=== PATIENT | female | born 1980 | race Caucasian/White ===

== ENCOUNTER 2018-01-15 17:43 | Emergency (ER) | payer MEDICAID, SELFPAY ==
[2018-01-15 17:52] VITALS: BP 136/87; PULSE 99; RESP 18; TEMP 36.8; O2SAT 98
[2018-01-15 18:11] LABS: Bilirubin Small (Negative); Blood Trace-intact (Negative); Clarity Clear; Glucose Negative (Negative); Ketones 15 mg/dL (Negative); Leukocyte Esterase Negative (Negative); Nitrite Negative (Negative); Specific Gravity >= 1.030 (1.005-1.025); Urobilinogen 0.2 EU/dL (Up TO 0.2); pH 5.5 (5-8)
[2018-01-15 18:22] LABS: Bacteria Few HPF (Negative); C & S Indicated? No; Casts Negative LPF (Negative); Crystals Negative HPF (Negative); Epithelial Cells Many HPF (Negative); Mucus Negative (Negative); Other Cells Negative (Negative)
[2018-01-15] MEDS: Ondansetron 4 MG/2 ML VIAL IVP (18:44)
[2018-01-15] MEDS: Normal Saline 1,000 ML 1000 ML IV (18:44)
[2018-01-15 18:53] LABS: Abs Immature Grans 0.01 k/cumm (0.0-0.09); Absolute Basophil Count 0.01 k/cumm (0.0-0.2); Absolute Eosinophil Count 0.07 k/cumm (0.0-0.7); Absolute Lymphocyte Count 2.46 k/cumm (1.2-3.4); Absolute Monocyte Count 0.45 k/cumm (0.11-0.7); Absolute Neutrophil Count 2.63 k/cumm (1.2-6.7); Basophils % 0.2; Eosinophils % 1.2; HCT 41.6 % (36.0-46.0); HGB 14.1 g/dL (12.0-15.5); Immature Grans % 0.2; Lymphocytes % 43.7; Mean Corp. HGB Concentration 33.9 g/dL (32.0-36.0); Mean Corpuscular Volume 91.4 fL (80-95); Mean Platelet Volume 10.2 fL (8.0-11.0); Neutrophils % 46.7; Platelet Count 257 x1000/uL (130-400); RBC 4.55 m/cumm (4.00-5.20); RBC Distribution Width 12.4 % (11.7-14.6); White Blood Cell Count 5.63 k/cumm (4.4-10.8)
[2018-01-15 19:01] LABS: Prothrombin Time 9.7 sec (9.3-10.8)
[2018-01-15 19:10] LABS: ALT 28 U/L (12-78); AST 15 U/L (15-37); Alkaline Phosphatase 84 U/L (46-116); Anion Gap 10.1 mmol/L (3-11); BUN 9 mg/dL (7-18); Bilirubin, Total 0.4 mg/dL (0.2-1.0); CO2 27.9 mmol/L (21.0-32.0); CREATININE 0.86 mg/dL (0.55-1.02); Calcium 8.8 mg/dL (8.5-10.1); Chloride 102 mmol/L (98-107); Glucose 88 mg/dL (70-100); Potassium 3.5 mmol/L (3.5-5.1); Sodium 140 mmol/L (136-145); Total Protein 7.4 g/dL (6.4-8.2)
[2018-01-15] MEDS: Ketorolac 15 MG/ML VIAL IVP (20:12)
--- NOTE | 2018-01-15 20:42 | W.ED.GENAD ---
Discharge Plan Disposition Patient Disposition: HOME Condition: Stable Discharge Details Chief Complaint: GI Bleed Clinical Impression: Acute GI bleeding, Internal hemorrhoid, bleeding, Diarrhea, Nausea Primary Care Provider: Leeanne Jaffe ED Provider: Gary De Los Santos Home Meds and New Rx's Prescriptions: New promethazine 25 mg tablet 25 mg PO Q6H PRN (Reason: nausea and vomiting) Qty: 10 RF: 0 Continue cetirizine [Zyrtec] 10 MG tablet 10 mg PO daily prn RF: 0 albuterol sulfate [ProAir HFA] 8.5 GM HFA aerosol inhaler 2 puff Inhalation Q6H PRN Qty: 1 RF: 11 lorazepam 1 MG tablet 0.5 - 1 mg PO q 12 hr prn Qty: 30 RF: 0 montelukast [Singulair] 10 MG tablet 10 mg PO DAILY Qty: 90 RF: 0 oxymetazoline [Nasal [place] 12 Hour] 15 ML spray,non-aerosol 15 ml NS PRN PRNRF: 0 ibuprofen 600 MG tablet 600 mg PO PRN PRNRF: 0 Discharge Instructions Instructions: Rectal Bleeding (ED), Acute Nausea and Vomiting (ED), Acute Diarrhea (ED) Additional Instructions: Return immediately to the emergency department for any profuse uncontrolled bleeding, lightheadedness, syncope, fever chills, or other symptoms you may be having. Otherwise call general surgery office tomorrow morning for arrangement of close follow-up appointment. You may use the provided cream for rectal pressure and discomfort twice daily for the next week Referrals: Alexandria Kohli MD [ [facility] STAFF PHYSICIAN] - Curtis Price DO [ [facility] STAFF PHYSICIAN] - Medical Decision Making Patient presenting to the emergency department for chief complaint of GI bleeding. Patient reports that she has had this going on for the last couple days and today started having some bright red blood and clots. Patient states some rectal pressure but overall has left lower quadrant tenderness. Patient does state for the past week she has had a GI illness with worsening watery diarrhea over the past couple days as well along with significant nausea but no vomiting. Patient denies any travel outside the country, ingestion of possible contaminated or spoiled food. Physical exam does show suprapubic and left lower quadrant tenderness and otherwise unremarkable examination. Plan to check labs and perform rectal examination with RN insulation batting machine operator. Pending results patient given IV fluids and Zofran given stated nausea. Rectal exam does show some bright red tinged blood and what appears to be significant swelling but no obvious internal hemorrhoid fissure laceration or other abnormality is noted. There is concern for possible higher up elevated internal hemorrhoid but given that this is not easily seen on anoscopy I do feel that CT imaging is warranted for assessment of any other etiology of GI bleed given patient has had previous abdominal surgeries. Patient otherwise stable Review of labs that show a stable H&H and otherwise nondiagnostic labs patient reassessed and states significant rectal pressure along with continued nausea. Patient ordered Phenergan IV and ketorolac. Review of CT imaging shows no acute findings. Given stable vital signs, no significant laboratory abnormalities, and no worrisome CT findings with concern for internal hemorrhoid without massive hemorrhage I did consult Dr. Velez general surgeon. She stated that she feels patient should be stable to follow-up on a close outpatient basis and that there may be some benefit to steroid cream rectally to help with the inflammatory changes noted. Patient placed on the close follow-up list with general surgery with preference to be seen within the next 5 days but patient states clear understanding to return immediately to the emergency department for worsening symptoms. I feel that internal hemorrhoid and GI bleeding may have been onset with acute GI illness but I do not feel that this is infectious diarrhea, and patient unable to give stool sample but this is considered at this time. After discussion of diagnosis and plan of care, patient states no further needs, questions, or concerns at this time. HPI General Mode of arrival: ambulatory. Date/Time Provider Initiated Documentation: 01/15/18 18:01. Limitations to Documentation: no limitations. Information obtained by: patient and RN notes reviewed. History of Present Illness 37 year old F presents to the emergency department with the chief complaint of GI bleed, described as mild, with intensity rated at 4. Quality is described as aching and other (pressure), and is localized to the abdomen. Patient reports no radiation. Patient started experiencing this day(s) (2) and it has been constant. No relieving factors improve symptom(s), No exacerbating factors reported . Patient did receive the following treatments prior to arrival, NSAID Related Data Home Medications Medication Instructions Recorded Confirmed cetirizine [Zyrtec] 10 mg PO daily prn tab-cap 10/12/12 07/12/17 albuterol sulfate [ProAir HFA] 2 puff INHALATION Q6H PRN #1 07/04/15 inhaler lorazepam 0.5 - 1 mg PO q 12 hr prn #30 tab 09/25/15 oxymetazoline [Nasal [place] 12 Hour] 15 ml NS PRN PRN 12/02/16 07/12/17 ibuprofen 600 mg PO PRN PRN 12/05/16 07/12/17 montelukast [Singulair] 10 mg PO DAILY #90 tab-cap 08/04/17 promethazine 25 mg PO Q6H PRN #10 tab 01/15/18 Previous Rx's Medication Instructions Recorded montelukast [Singulair] 10 mg PO DAILY #90 tab-cap 08/04/17 promethazine 25 mg PO Q6H PRN #10 tab 01/15/18 Allergies Allergy/AdvReac Type Severity Reaction Status Date / Time metoclopramide HCl AdvReac Intermediate CREEPY Unverified 01/15/18 17:55 [From [facility]] CRAWLY FEELINGS General Stated Complaint: GI Bleed VIOLET: 3 Review of Systems Constitutional Denies chills, Denies fever(s), Reports malaise and Reports poor appetite Cardiovascular Denies chest pain and Denies dyspnea Respiratory Denies dyspnea Gastrointestinal Reports as per HPI, Reports abdominal pain, Reports melena, Denies change in bowel habits, Denies constipation, Reports diarrhea, Reports nausea and Denies vomiting Genitourinary Denies hematuria, Denies urinary incontinence, Denies urinary hesitancy and Denies urinary urgency Integumentary/Breasts Denies rash PFSH Family History Mother Essential hypertension Depression Hyperlipidemia Father Diabetes Essential hypertension Personal history of malignant neoplasm Depression Heart disease Hyperlipidemia Cerebrovascular accident Sister No problems noted. Brother Depression Hyperlipidemia Brother Essential hypertension Depression Hyperlipidemia Asthma Grandfather Essential hypertension Heart disease Cerebrovascular accident Grandfather Diabetes Depression Grandmother Personal history of malignant neoplasm Depression Heart disease Cerebrovascular accident Grandmother Diabetes Heart disease Cerebrovascular accident Son Depression Asthma Daughter No problems noted. Medical History GERD (gastroesophageal reflux disease) Reactive airway disease Social History Smoking/Tobacco Use Status: Never Surgical History Cholecystectomy (12/03/16) Luis F Fundoplication Sinus repair Exam Const General: cooperative Orientation: alert, awake and oriented x3 Resp Effort & Inspection: normal respiratory effort and able to speak in complete sentences Auscultation: clear to auscultation bilaterally Cardio Rate: regular rate Rhythm: regular rhythm Heart Sounds: S1 normal and S2 normal GI Inspection: normal to inspection, no edema and non-distended Palpation: soft, no hepatosplenomegaly, not firm, no guarding, no masses, no pulsatile masses, not rigid, no splenomegaly and tender in the LLQ and suprapubicly Auscultation: normal bowel sounds Rectal Exam - female: normal sphincter tone, No fecal impaction, No fissure, heme positive stool Rectal exam heme positive - female: gross blood (Bright red streaks on visual examination), hemorrhoids (Mild external), No laceration, No lesions, No mass, tenderness and other (Rectal exam performed with RN insulation batting machine operator) Back/Spine/Pelvis Back: no CVA tenderness Neuro General: alert, awake, oriented x3, gait normal and moves all extremities Course Vital Signs Temperature 36.8 C 01/15/18 17:52 Pulse 99 H 01/15/18 17:52 Respiratory Rate 18 01/15/18 17:52 Blood Pressure 136/87 01/15/18 17:52 Pulse Oximetry 98 01/15/18 17:52 Temperature 36.8 C 01/15/18 17:52 Temperature Source Skin 01/15/18 17:52 Pulse 99 H 01/15/18 17:52 Respiratory Rate 18 01/15/18 17:52 Respiratory Effort 01/15/18 17:55 Blood Pressure 136/87 01/15/18 17:52 Blood Pressure Position Sitting 01/15/18 17:52 Pulse Oximetry 98 01/15/18 17:52 Oxygen Delivery Method Room Air 01/15/18 17:52 Oxygen Flow Rate 0 01/15/18 17:52 Pain Level 4 01/15/18 20:01 Lab/Test Results Lab/Test Results: Laboratory Tests Range/Units 01/15/18 01/15/18 01/15/18 18:00 18:36 18:36 WBC (4.4-10.8) k/cumm 5.63 RBC (4.00-5.20) m/cumm 4.55 Hgb (12.0-15.5) g/dL 14.1 Hct (36.0-46.0) % 41.6 MCV (80-95) fL 91.4 MCH (27.0-33.0) pg 31.0 MCHC (32.0-36.0) g/dL 33.9 RDW (11.7-14.6) % 12.4 Plt Count (130-400) x1000/uL 257 MPV (8.0-11.0) fL 10.2 Immature Gran % 0.2 Neutrophils % 46.7 Lymphocytes % 43.7 Monocytes % 8.0 Eosinophils % 1.2 Basophils % 0.2 Absolute Neutrophils (1.2-6.7) k/cumm 2.63 Absolute Lymphocytes (1.2-3.4) k/cumm 2.46 Absolute Monocytes (0.11-0.7) k/cumm 0.45 Absolute Eosinophils (0.0-0.7) k/cumm 0.07 Absolute Basophils (0.0-0.2) k/cumm 0.01 PT (9.3-10.8) sec INR (1.0-3.5) Sodium (136-145) mmol/L 140 Potassium (3.5-5.1) mmol/L 3.5 Chloride (98-107) mmol/L 102 Carbon Dioxide (21.0-32.0) mmol/L 27.9 Anion Gap (3-11) mmol/L 10.1 BUN (7-18) mg/dL 9 Creatinine (0.55-1.02) mg/dL 0.86 Estimated GFR/1.73 m2 (mL/min/1.73m2) >= 60.00 Glucose (70-100) mg/dL 88 Calcium (8.5-10.1) mg/dL 8.8 Total Bilirubin (0.2-1.0) mg/dL 0.4 AST (15-37) U/L 15 ALT (12-78) U/L 28 Alkaline Phosphatase (46-116) U/L 84 Total Protein (6.4-8.2) g/dL 7.4 Albumin (3.4-5.0) g/dL 4.0 Urine Color (Yellow) Yellow Urine Clarity Clear Urine pH (5-8) 5.5 Ur Specific Adrian (1.005-1.025) >= 1.030 H Urine Protein (Negative) mg/dL 30 H Urine Ketones (Negative) mg/dL 15 H Urine Blood (Negative) Trace-intact H Urine Nitrite (Negative) Negative Urine Bilirubin (Negative) Small H Urine Urobilinogen (Up TO 0.2) EU/dL 0.2 Ur Leukocyte Esterase (Negative) Negative Urine RBC (0-2) 3-5 H Urine WBC (0-5) HPF 3-5 Ur Epithelial Cells (Negative) HPF Many Urine Crystals (Negative) HPF Negative Urine Bacteria (Negative) HPF Few Urine Casts (Negative) LPF Negative Urine Mucus (Negative) Negative Urine Other (Negative) Negative Ur Culture Indicated? No Urine Glucose (Negative) mg/dL Negative Patient ABO/Rh Antibody Screen Range/Units 01/15/18 01/15/18 18:36 18:36 WBC (4.4-10.8) k/cumm RBC (4.00-5.20) m/cumm Hgb (12.0-15.5) g/dL Hct (36.0-46.0) % MCV (80-95) fL MCH (27.0-33.0) pg MCHC (32.0-36.0) g/dL RDW (11.7-14.6) % Plt Count (130-400) x1000/uL MPV (8.0-11.0) fL Immature Gran % Neutrophils % Lymphocytes % Monocytes % Eosinophils % Basophils % Absolute Neutrophils (1.2-6.7) k/cumm Absolute Lymphocytes (1.2-3.4) k/cumm Absolute Monocytes (0.11-0.7) k/cumm Absolute Eosinophils (0.0-0.7) k/cumm Absolute Basophils (0.0-0.2) k/cumm PT (9.3-10.8) sec 9.7 INR (1.0-3.5) 1.0 Sodium (136-145) mmol/L Potassium (3.5-5.1) mmol/L Chloride (98-107) mmol/L Carbon Dioxide (21.0-32.0) mmol/L Anion Gap (3-11) mmol/L BUN (7-18) mg/dL Creatinine (0.55-1.02) mg/dL Estimated GFR/1.73 m2 (mL/min/1.73m2) Glucose (70-100) mg/dL Calcium (8.5-10.1) mg/dL Total Bilirubin (0.2-1.0) mg/dL AST (15-37) U/L ALT (12-78) U/L Alkaline Phosphatase (46-116) U/L Total Protein (6.4-8.2) g/dL Albumin (3.4-5.0) g/dL Urine Color (Yellow) Urine Clarity Urine pH (5-8) Ur Specific Adrian (1.005-1.025) Urine Protein (Negative) mg/dL Urine Ketones (Negative) mg/dL Urine Blood (Negative) Urine Nitrite (Negative) Urine Bilirubin (Negative) Urine Urobilinogen (Up TO 0.2) EU/dL Ur Leukocyte Esterase (Negative) Urine RBC (0-2) Urine WBC (0-5) HPF Ur Epithelial Cells (Negative) HPF Urine Crystals (Negative) HPF Urine Bacteria (Negative) HPF Urine Casts (Negative) LPF Urine Mucus (Negative) Urine Other (Negative) Ur Culture Indicated? Urine Glucose (Negative) mg/dL Patient ABO/Rh O Positive Antibody Screen Negative POC- Test(urine) Negative
--- NOTE | 2018-01-15 20:47 | ED.GENADUL_ITS ---
Discharge Plan Disposition Patient Disposition: HOME Condition: Stable Discharge Details Chief Complaint: GI Bleed Clinical Impression: Acute GI bleeding, Internal hemorrhoid, bleeding, Diarrhea, Nausea Primary Care Provider: Leeanne Jaffe ED Provider: Gary De Los Santos Home Meds and New Rx's Prescriptions: New promethazine 25 mg tablet 25 mg PO Q6H PRN (Reason: nausea and vomiting) Qty: 10 RF: 0 Continue cetirizine [Zyrtec] 10 MG tablet 10 mg PO daily prn RF: 0 albuterol sulfate [ProAir HFA] 8.5 GM HFA aerosol inhaler 2 puff Inhalation Q6H PRN Qty: 1 RF: 11 lorazepam 1 MG tablet 0.5 - 1 mg PO q 12 hr prn Qty: 30 RF: 0 montelukast [Singulair] 10 MG tablet 10 mg PO DAILY Qty: 90 RF: 0 oxymetazoline [Nasal [place] 12 Hour] 15 ML spray,non-aerosol 15 ml NS PRN PRNRF: 0 ibuprofen 600 MG tablet 600 mg PO PRN PRNRF: 0 Discharge Instructions Instructions: Rectal Bleeding (ED), Acute Nausea and Vomiting (ED), Acute Diarrhea (ED) Additional Instructions: Return immediately to the emergency department for any profuse uncontrolled bleeding, lightheadedness, syncope, fever chills, or other symptoms you may be having. Otherwise call general surgery office tomorrow morning for arrangement of close follow-up appointment. You may use the provided cream for rectal pressure and discomfort twice daily for the next week Referrals: Alexandria Kohli MD [ [facility]] - Curtis Price DO [ [facility]] - Medical Decision Making Patient presenting to the emergency department for chief complaint of GI bleeding. Patient reports that she has had this going on for the last couple days and today started having some bright red blood and clots. Patient states some rectal pressure but overall has left lower quadrant tenderness. Patient does state for the past week she has had a GI illness with worsening watery diarrhea over the past couple days as well along with significant nausea but no vomiting. Patient denies any travel outside the country, ingestion of possible contaminated or spoiled food. Physical exam does show suprapubic and left lower quadrant tenderness and otherwise unremarkable examination. Plan to check labs and perform rectal examination with RN 911 dispatcher. Pending results patient given IV fluids and Zofran given stated nausea. Rectal exam does show some bright red tinged blood and what appears to be significant swelling but no obvious internal hemorrhoid fissure laceration or other abnormality is noted. There is concern for possible higher up elevated internal hemorrhoid but given that this is not easily seen on anoscopy I do feel that CT imaging is warranted for assessment of any other etiology of GI bleed given patient has had previous abdominal surgeries. Patient otherwise stable Review of labs that show a stable H&H and otherwise nondiagnostic labs patient reassessed and states significant rectal pressure along with continued nausea. Patient ordered Phenergan IV and ketorolac. Review of CT imaging shows no acute findings. Given stable vital signs, no significant laboratory abnormalities, and no worrisome CT findings with concern for internal hemorrhoid without massive hemorrhage I did consult Dr. Velez general surgeon. She stated that she feels patient should be stable to follow- up on a close outpatient basis and that there may be some benefit to steroid cream rectally to help with the inflammatory changes noted. Patient placed on the close follow-up list with general surgery with preference to be seen within the next 5 days but patient states clear understanding to return immediately to the emergency department for worsening symptoms. I feel that internal hemorrhoid and GI bleeding may have been onset with acute GI illness but I do not feel that this is infectious diarrhea, and patient unable to give stool sample but this is considered at this time. After discussion of diagnosis and plan of care, patient states no further needs, questions, or concerns at this time. HPI General Mode of arrival: ambulatory . Date/Time Provider Initiated Documentation: 01/15/18 18:01 . Limitations to Documentation: no limitations . Information obtained by: patient and RN notes reviewed . History of Present Illness 37 year old F presents to the emergency department with the chief complaint of GI bleed, described as mild, with intensity rated at 4. Quality is described as aching and other (pressure), and is localized to the abdomen. Patient reports no radiation. Patient started experiencing this day(s) (2) and it has been constant. No relieving factors improve symptom(s), No exacerbating factors reported . Patient did receive the following treatments prior to arrival, NSAID Related Data Home Medications Medication Instructions Recorded Confirmed cetirizine [Zyrtec] 10 mg PO daily prn tab-cap 10/12/12 07/12/17 albuterol sulfate [ProAir HFA] 2 puff INHALATION Q6H PRN #1 07/04/15 inhaler lorazepam 0.5 - 1 mg PO q 12 hr prn #30 tab 09/25/15 oxymetazoline [Nasal [place] 12 Hour] 15 ml NS PRN PRN 12/02/16 07/12/17 ibuprofen 600 mg PO PRN PRN 12/05/16 07/12/17 montelukast [Singulair] 10 mg PO DAILY #90 tab-cap 08/04/17 promethazine 25 mg PO Q6H PRN #10 tab 01/15/18 Previous Rx's Medication Instructions Recorded montelukast [Singulair] 10 mg PO DAILY #90 tab-cap 08/04/17 promethazine 25 mg PO Q6H PRN #10 tab 01/15/18 Allergies Allergy/AdvReac Type Severity Reaction Status Date / Time metoclopramide HCl AdvReac Intermediate CREEPY Unverified 01/15/18 17:55 [From [facility]] CRAWLY FEELINGS General Stated Complaint: GI Bleed VIOLET: 3 Review of Systems Constitutional Denies chills, Denies fever(s), Reports malaise and Reports poor appetite Cardiovascular Denies chest pain and Denies dyspnea Respiratory Denies dyspnea Gastrointestinal Reports as per HPI, Reports abdominal pain, Reports melena, Denies change in bowel habits, Denies constipation, Reports diarrhea, Reports nausea and Denies vomiting Genitourinary Denies hematuria, Denies urinary incontinence, Denies urinary hesitancy and Denies urinary urgency Integumentary/Breasts Denies rash PFSH Family History Mother Essential hypertension Depression Hyperlipidemia Father Diabetes Essential hypertension Personal history of malignant neoplasm Depression Heart disease Hyperlipidemia Cerebrovascular accident Sister No problems noted. Brother Depression Hyperlipidemia Brother Essential hypertension Depression Hyperlipidemia Asthma Grandfather Essential hypertension Heart disease Cerebrovascular accident Grandfather Diabetes Depression Grandmother Personal history of malignant neoplasm Depression Heart disease Cerebrovascular accident Grandmother Diabetes Heart disease Cerebrovascular accident Son Depression Asthma Daughter No problems noted. Medical History GERD (gastroesophageal reflux disease) Reactive airway disease Social History Smoking/Tobacco Use Status: Never Surgical History Cholecystectomy (12/03/16) Luis F Fundoplication Sinus repair Exam Const General: cooperative Orientation: alert, awake and oriented x3 Resp Effort & Inspection: normal respiratory effort and able to speak in complete sentences Auscultation: clear to auscultation bilaterally Cardio Rate: regular rate Rhythm: regular rhythm Heart Sounds: S1 normal and S2 normal GI Inspection: normal to inspection, no edema and non-distended Palpation: soft, no hepatosplenomegaly, not firm, no guarding, no masses, no pulsatile masses, not rigid, no splenomegaly and tender in the LLQ and suprapubicly Auscultation: normal bowel sounds Rectal Exam - female: normal sphincter tone, No fecal impaction, No fissure, heme positive stool Rectal exam heme positive - female: gross blood (Bright red streaks on visual examination), hemorrhoids (Mild external), No laceration, No lesions, No mass, tenderness and other (Rectal exam performed with RN 911 dispatcher) Back/Spine/Pelvis Back: no CVA tenderness Neuro General: alert, awake, oriented x3, gait normal and moves all extremities Course Vital Signs Temperature 36.8 C 01/15/18 17:52 Pulse 99 H 01/15/18 17:52 Respiratory Rate 18 01/15/18 17:52 Blood Pressure 136/87 01/15/18 17:52 Pulse Oximetry 98 01/15/18 17:52 Temperature 36.8 C 01/15/18 17:52 Temperature Source Skin 01/15/18 17:52 Pulse 99 H 01/15/18 17:52 Respiratory Rate 18 01/15/18 17:52 Respiratory Effort 01/15/18 17:55 Blood Pressure 136/87 01/15/18 17:52 Blood Pressure Position Sitting 01/15/18 17:52 Pulse Oximetry 98 01/15/18 17:52 Oxygen Delivery Method Room Air 01/15/18 17:52 Oxygen Flow Rate 0 01/15/18 17:52 Pain Level 4 01/15/18 20:01 Lab/Test Results Lab/Test Results: Laboratory Tests Range/Units 01/15/18 01/15/18 01/15/18 18:00 18:36 18:36 WBC (4.4-10.8) k/cumm 5.63 RBC (4.00-5.20) m/cumm 4.55 Hgb (12.0-15.5) g/dL 14.1 Hct (36.0-46.0) % 41.6 MCV (80-95) fL 91.4 MCH (27.0-33.0) pg 31.0 MCHC (32.0-36.0) g/dL 33.9 RDW (11.7-14.6) % 12.4 Plt Count (130-400) x1000/uL 257 MPV (8.0-11.0) fL 10.2 Immature Gran % 0.2 Neutrophils % 46.7 Lymphocytes % 43.7 Monocytes % 8.0 Eosinophils % 1.2 Basophils % 0.2 Absolute Neutrophils (1.2-6.7) k/cumm 2.63 Absolute Lymphocytes (1.2-3.4) k/cumm 2.46 Absolute Monocytes (0.11-0.7) k/cumm 0.45 Absolute Eosinophils (0.0-0.7) k/cumm 0.07 Absolute Basophils (0.0-0.2) k/cumm 0.01 PT (9.3-10.8) sec INR (1.0-3.5) Sodium (136-145) mmol/L 140 Potassium (3.5-5.1) mmol/L 3.5 Chloride (98-107) mmol/L 102 Carbon Dioxide (21.0-32.0) mmol/L 27.9 Anion Gap (3-11) mmol/L 10.1 BUN (7-18) mg/dL 9 Creatinine (0.55-1.02) mg/dL 0.86 Estimated GFR/1.73 m2 (mL/min/1.73m2) >= 60.00 Glucose (70-100) mg/dL 88 Calcium (8.5-10.1) mg/dL 8.8 Total Bilirubin (0.2-1.0) mg/dL 0.4 AST (15-37) U/L 15 ALT (12-78) U/L 28 Alkaline Phosphatase (46-116) U/L 84 Total Protein (6.4-8.2) g/dL 7.4 Albumin (3.4-5.0) g/dL 4.0 Urine Color (Yellow) Yellow Urine Clarity Clear Urine pH (5-8) 5.5 Ur Specific [place] (1.005-1.025) >= 1.030 H Urine Protein (Negative) mg/dL 30 H Urine Ketones (Negative) mg/dL 15 H Urine Blood (Negative) Trace-intact H Urine Nitrite (Negative) Negative Urine Bilirubin (Negative) Small H Urine Urobilinogen (Up TO 0.2) EU/dL 0.2 Ur Leukocyte Esterase (Negative) Negative Urine RBC (0-2) 3-5 H Urine WBC (0-5) HPF 3-5 Ur Epithelial Cells (Negative) HPF Many Urine Crystals (Negative) HPF Negative Urine Bacteria (Negative) HPF Few Urine Casts (Negative) LPF Negative Urine Mucus (Negative) Negative Urine Other (Negative) Negative Ur Culture Indicated? No Urine Glucose (Negative) mg/dL Negative Patient ABO/Rh Antibody Screen Range/Units 01/15/18 01/15/18 18:36 18:36 WBC (4.4-10.8) k/cumm RBC (4.00-5.20) m/cumm Hgb (12.0-15.5) g/dL Hct (36.0-46.0) % MCV (80-95) fL MCH (27.0-33.0) pg MCHC (32.0-36.0) g/dL RDW (11.7-14.6) % Plt Count (130-400) x1000/uL MPV (8.0-11.0) fL Immature Gran % Neutrophils % Lymphocytes % Monocytes % Eosinophils % Basophils % Absolute Neutrophils (1.2-6.7) k/cumm Absolute Lymphocytes (1.2-3.4) k/cumm Absolute Monocytes (0.11-0.7) k/cumm Absolute Eosinophils (0.0-0.7) k/cumm Absolute Basophils (0.0-0.2) k/cumm PT (9.3-10.8) sec 9.7 INR (1.0-3.5) 1.0 Sodium (136-145) mmol/L Potassium (3.5-5.1) mmol/L Chloride (98-107) mmol/L Carbon Dioxide (21.0-32.0) mmol/L Anion Gap (3-11) mmol/L BUN (7-18) mg/dL Creatinine (0.55-1.02) mg/dL Estimated GFR/1.73 m2 (mL/min/1.73m2) Glucose (70-100) mg/dL Calcium (8.5-10.1) mg/dL Total Bilirubin (0.2-1.0) mg/dL AST (15-37) U/L ALT (12-78) U/L Alkaline Phosphatase (46-116) U/L Total Protein (6.4-8.2) g/dL Albumin (3.4-5.0) g/dL Urine Color (Yellow) Urine Clarity Urine pH (5-8) Ur Specific [place] (1.005-1.025) Urine Protein (Negative) mg/dL Urine Ketones (Negative) mg/dL Urine Blood (Negative) Urine Nitrite (Negative) Urine Bilirubin (Negative) Urine Urobilinogen (Up TO 0.2) EU/dL Ur Leukocyte Esterase (Negative) Urine RBC (0-2) Urine WBC (0-5) HPF Ur Epithelial Cells (Negative) HPF Urine Crystals (Negative) HPF Urine Bacteria (Negative) HPF Urine Casts (Negative) LPF Urine Mucus (Negative) Urine Other (Negative) Ur Culture Indicated? Urine Glucose (Negative) mg/dL Patient ABO/Rh O Positive Antibody Screen Negative POC- Test(urine) Negative
--- NOTE | 2018-01-15 20:55 | DI.CT_ITS ---
SYMPTOMS/DIAGNOSIS: ABDOMINAL PAIN, RECTAL BLEEDING CT SCAN OF THE ABDOMEN AND PELVIS: Comparison is 11/14/16. CT scan was performed following the uneventful administration of intravenous contrast material. There is a calcified granuloma in the right lung base. Area of atelectasis is seen in the right middle lobe. The liver, spleen, pancreas and adrenal glands are unremarkable. The patient is status post cholecystectomy. No biliary ductal dilatation is seen. The kidneys, ureters and bladder are unremarkable. The reproductive organs are unremarkable. The aorta is of normal caliber. No significant abdominal or pelvic adenopathy, ascites or pneumoperitoneum is present. The bowel shows no evidence of obstruction or inflammation. There is a normal appendix present. The bones are intact. IMPRESSION: No evidence of an acute abdomen.
--- NOTE | 2018-01-15 21:33 | DI.VRAD_ITS ---
EXAM: CT Abdomen and Pelvis With Intravenous Contrast EXAM DATE/TIME: 01/15/2018 8:34 PM CLINICAL HISTORY: 37 years old, female; Pain; Abdominal pain; Generalized TECHNIQUE: Axial computed tomography images of the abdomen and pelvis with intravenous contrast. All CT scans at this facility use at least one of these dose optimization techniques: automated exposure control; mA and/or kV adjustment per patient size (includes targeted exams where dose is matched to clinical indication); or iterative reconstruction. Coronal and sagittal reformatted images were created and reviewed. CONTRAST: 100 ml of omnipaque 350 administered intravenously. COMPARISON: CT ABD PELVIS WITH CONTRAST 11/14/2016 2:54 AM FINDINGS: Lower thorax: Postsurgical changes from prior fundoplication procedure are seen at the gastroesophageal junction. Lung bases are clear. ABDOMEN: Liver: Normal. No mass. Gallbladder and bile ducts: Status post cholecystectomy. Pancreas: Normal. No ductal dilation. Spleen: Normal. No splenomegaly. Adrenals: Normal. No mass. Kidneys and ureters: Normal. No hydronephrosis. Stomach and bowel: Normal. No obstruction. No mucosal thickening. Appendix: No evidence of appendicitis. PELVIS: Bladder: Unremarkable as visualized. Reproductive: Unremarkable as visualized. ABDOMEN and PELVIS: Intraperitoneal space: Normal. No free air. No significant fluid collection. Bones/joints: No acute fracture. No dislocation. Soft tissues: Unremarkable. Vasculature: Normal. No abdominal aortic aneurysm. Lymph nodes: Normal. No enlarged lymph nodes. IMPRESSION: No acute findings. Dictated and Authenticated by: Rajiv Snyder MD. Ordering:PUSHPA MORA MD
[2018-01-15 22:31] VITALS: BP 135/87; PULSE 79; RESP 18; O2SAT 96
[2018-01-15] MEDS: Promethazine 25 MG TAB PO (22:41)
--- NOTE | 2018-01-16 12:50 | CMPROGNOTE_ITS ---
Care Management Progress Note 01/16/18-Pt seen for internal hemorrhoids on 01/15/18 by KAYLIE Walter. F/U referral faxed to [facility].
== END 2018-01-15 23:00 | disposition home or self-care (01) ==
PROVIDERS: Emergency Provider Nurse Practitioner Family; PCP Nurse Practitioner Family
DX: K92.2 Gastrointestinal hemorrhage, unspecified (principal); K64.8 Other hemorrhoids; R19.7 Diarrhea, unspecified; R11.0 Nausea
CPT/HCPCS: 80053; 86850; 86900; 86901; 96361; 96374; 99284; 74177; 81003; 81015; 85025; 85610; J1885; J2405; J3490

== ENCOUNTER 2018-02-02 06:47 | Day surgery (SDC) | payer MEDICAID, SELFPAY ==
--- NOTE | 2018-01-30 08:25 | BOWEL_PTH ---
PATIENT: Aisha Zuñiga LOC: [facility] U#:[id number] AGE/SX: 37/F ROOM: RE02/02/[address]: Alexandria Kohli MD : 1980 BED: DIS: 02/02/2018 SPEC #: [id number] RECD: 02/02/18 12:35 STATUS: [facility] RE #: [id number] MARVIN: 01/30/18 08:[address]: Alexandria Kohli DEPT: Surgical Specimen RECD BY: Mihaela Ocasio ENTERED: 02/02/18 12:39 SP TYPE: Bowel OTHR DR: Leeanne Jaffe, [employer] DIRECTOR Tissues: 1 - BIOPSY BOWEL 2 - BIOPSY BOWEL 3 - BIOPSY BOWEL 4 - BIOPSY BOWEL 5 - BIOPSY BOWEL 6 - BIOPSY BOWEL Procedures: GROSS AND MICRO LEVEL 4 Comments: [id number]
--- NOTE | 2018-02-02 06:19 | W.COLOREPORT ---
Date of service: 02/02/18 Colonoscopy Report Date of procedure: 02/02/18 Pre-op diagnosis general: Diarrhea and rectal bleeding Post-op diagnosis procedure note: same (and polyps) Procedure: Colonoscopy with random biopsies and polypectomy x2 Surgeon: Alexandria Kohli Anesthesia proc note operative: MAC (Trisha Benitez CRNA) Estimated blood loss (mL): 5 Pathology: other (Multiple randome biopsies and 2 polyps) Complications: None Disposition: same day Indications: Mrs. Zuñiga is a pleasant 37 year old female seen in the office with a history of diarrhea and rectal bleeding, Risks, benefits and complictaions were reviewed and she wished to proceed. No guarantees were given or implied. Prep: Miralax/Dulcolax Procedure Start Time: 08:09 Procedure End Time: 08:49 Retraction Time: 28 minutes Findings: benign appearing polyps in the sigmoid and rectum, grade 1 internal hemorrhoids, otherwise unremarkable colon Procedure Description: After informed consent was obtained the patient was taken to the procedure room and placed in a left decubitous position. Monitors were applied and a time out was done. The patients name, date of , procedure, allergies to medications and metal in their body was reviewed. The patient was then sedated. Once sedated and comfortable a rectal exam was done. External exam was normal. Internal exam revealed a normal sphincter tone and no palpable masses. The scope was then introduced and retrofelexed. Grade 1 internal hemorrhoids were identified. The scope was then advanced to the cecum without difficulty. The TI and appendiceal orifice were identified. The prep was adequate. The scope was then slowly retracted over 28 minutes back into the rectum. Multiple random biopsies were done to rule out microscopic colitis. 2 polyps were removed. One in the sigmoid colon and one in the rectum. The scope was removed and the patient was woken up and taken back to Same day surgery in stable condition. The patient tolerated the procedure well and there were no immediate complications. Follow up: The patient should follow up in 10 years, unless the polyps end up being pre-cancerous. She may also need a colonoscopy earlier if they develop changes in bowel habits or other new gastrointestinal complaints.
--- NOTE | 2018-02-02 06:21 | PDOC.DSDIS_ITS ---
Discharge Plan Disposition Patient Disposition: HOME Condition: Good Discharge Details Reason For Visit: Colonoscopy Attending Provider: Alexandria Kohli Primary Care Provider: Leeanne Jaffe Home Meds and New Rx's Prescriptions: Continue cetirizine [Zyrtec] 10 MG tablet 10 mg PO daily prn RF: 0 albuterol sulfate [ProAir HFA] 8.5 GM HFA aerosol inhaler 2 puff Inhalation Q6H PRN Qty: 1 RF: 11 lorazepam 1 MG tablet 0.5 - 1 mg PO q 12 hr prn Qty: 30 RF: 0 montelukast [Singulair] 10 MG tablet 10 mg PO DAILY Qty: 90 RF: 0 oxymetazoline [Nasal [place] 12 Hour] 15 ML spray,non-aerosol 15 ml NS PRN PRNRF: 0 ibuprofen 600 MG tablet 600 mg PO PRN PRNRF: 0 promethazine 25 mg tablet 25 mg PO Q6H PRN (Reason: nausea and vomiting) Qty: 10 RF: 0 pseudoephedrine HCl [Sudafed 12 Hour] 120 mg Tablet Extended Release 1 tab PO DAILY RF: 0 Discontinued polyethylene glycol 3350 17 gram powder in packet 255 g PO DAILY Qty: 15 RF: 0 bisacodyl [Dulcolax (bisacodyl)] 5 mg tablet,delayed release (DR/EC) 5 mg PO ONCE Qty: 4 RF: 0 Discharge Instructions Instructions: Colonoscopy (DC), Hemorrhoids (DC) Additional Instructions: Findings: 2 small benign appearing polyps small internal hemorrhoids Follow up: 10 years. I will call with results of the biopsies New Medication: none Please call if you develop: fevers >101.5 Nausea or Vomiting Abdominal pain that is not transient 1. Because there will be medication in your system for the next 24 hours, you may feel a little sleepy. Your coordination will be affected. Therefore: a. Do not drive or operate dangerous equipment for 24 hours. b. Do not drink alcohol beverages for 24 hours (not even beer). c. Plan to go home and rest for the day. 2. Generally there are no restrictions on your activity after a day or so has gone by, but you may feel a bit fatigued for a few days. 3 After you arrive home you may have a light meal and return to a normal diet as you can tolerate it without feeling sick to your stomach. 4. After surgery, you may feel pain or discomfort. This should be only transient , but if it persists please contact your doctor. 5. If there are any questions regarding the findings of your procedure, please feel free to contact your doctor. 6. If you are unable to contact your doctor with a problem, contact the ospital at [phone]. 7. Continue all your regular medications unless directed otherwise. I understand the above instructions and have no questions. Signature of Patient or Responsible Adult Escort Date/Time Name of Responsible Adult Escort Signature of Nurse Date/Time Activity:: Activity as Tolerated Diet:: As Tolerated Discharge Orders Discharge Orders: Discharge Order (Routine); Ordered 02/02/18 Ordered By: Alexandria Kohli DS: Diagnosis Discharge Diagnosis (1) Chronic diarrhea: Status: Acute
[2018-02-02 06:57] VITALS: BP 116/74; PULSE 80; RESP 18; TEMP 36.8; O2SAT 98
[2018-02-02] MEDS: Lactated Ringers 1,000 ML 80 ML IV (07:35)
[2018-02-02 09:15] VITALS: BP 116/67; PULSE 78; RESP 16; TEMP 36.4; O2SAT 100
== END 2018-02-02 10:15 | disposition home or self-care (01) ==
PROVIDERS: PCP Nurse Practitioner Family; Visit Provider Surgery
PROC: 0DJD8ZZ Inspection of Lower Intestinal Tract, Via Natural or Artificial Opening Endoscopic (ICD-10-PCS; CPT 45378; principal; 2018-02-02 08:15)
DX: K62.5 Hemorrhage of anus and rectum (principal); R19.7 Diarrhea, unspecified; K63.5 Polyp of colon; K62.1 Rectal polyp; K64.0 First degree hemorrhoids
CPT/HCPCS: 45380; 81025; 88305; J1885

== ENCOUNTER 2018-03-23 11:35 | Emergency (ER) | payer MEDICAID, SELFPAY ==
[2018-03-23 11:38] VITALS: BP 134/84; PULSE 92; RESP 20; TEMP 36.8; O2SAT 99
--- NOTE | 2018-03-23 11:52 | W.ED.GENAD ---
Discharge Plan Disposition Patient Disposition: HOME Condition: Improving Discharge Details Chief Complaint: Headache Clinical Impression: Acute maxillary sinusitis Primary Care Provider: Leeanne Jaffe ED Provider: Yonny Dorantes Home Meds and New Rx's Prescriptions: New amoxicillin-pot clavulanate 875-125 mg tablet 1 tab PO BID 10 Days Qty: 20 RF: 0 Continue albuterol sulfate [ProAir HFA] 8.5 GM HFA aerosol inhaler 2 puff Inhalation Q6H PRN Qty: 1 RF: 11 Discontinued ibuprofen 600 MG tablet 600 mg PO PRN PRNRF: 0 promethazine 25 mg tablet 25 mg PO Q6H PRN (Reason: nausea and vomiting) Qty: 10 RF: 0 pseudoephedrine HCl [Sudafed 12 Hour] 120 mg Tablet Extended Release 1 tab PO DAILY RF: 0 No Action cetirizine [Zyrtec] 10 MG tablet 10 mg PO daily prn RF: 0 montelukast [Singulair] 10 MG tablet 10 mg PO DAILY Qty: 90 RF: 0 oxymetazoline [Nasal [place] 12 Hour] 15 ML spray,non-aerosol 15 ml NS PRN PRNRF: 0 Discharge Instructions Instructions: Sinusitis (ED) Additional Instructions: Please follow-up with your [facility] for recheck. Return to emerge part for any acute concerns. May use Tylenol as needed for pain. May use Benadryl 25-50 mg at bedtime for decongestion and sleep. Take antibiotics as prescribed. I recommend you take an [id number] probiotic or live culture yogurt in the middle of the day between the doses of antibiotics. Medical Decision Making 37-year-old female who is 7-1/2 weeks presents with what she tells me is 2+ weeks of sinus pain and pressure with postnasal drip. It was associated with migraine headache days ago that is now improved. She has not had any abdominal pain, vaginal bleeding, and is scheduled to follow-up with [place] [facility]. She is afebrile and well-appearing. Her exam is consistent with acute maxillary sinusitis. Discussed with her home management in including course of antibiotics and the use of Benadryl at night for sleep and congestion. She will return for any concern HPI General Mode of arrival: ambulatory. Date/Time Provider Initiated Documentation: 03/23/18 11:36. Limitations to Documentation: no limitations. Information obtained by: patient. History of Present Illness 37 year old F presents to the emergency department with the chief complaint of Bilateral sinus pain and pressure with postnasal drip and headache. , described as similar to prior episodes, Quality is described as aching and constant, and is localized to the head. Patient reports no radiation. Patient started experiencing this day(s) and it has been constant. No relieving factors improve symptom(s), Other factors that worsen symptoms (Cough) . Patient notes no other symptoms.. Patient did receive the following treatments prior to arrival, none Related Data Home Medications Medication Instructions Recorded Confirmed cetirizine [Zyrtec] 10 mg PO daily prn tab-cap 10/12/12 03/23/18 albuterol sulfate [ProAir HFA] 2 puff INHALATION Q6H PRN #1 07/04/15 03/23/18 inhaler oxymetazoline [Nasal [place] 12 Hour] 15 ml NS PRN PRN 12/02/16 03/23/18 montelukast [Singulair] 10 mg PO DAILY #90 tab-cap 08/04/17 03/23/18 amoxicillin-pot clavulanate 1 tab PO BID 10 Days #20 tab 03/23/18 Previous Rx's Medication Instructions Recorded montelukast [Singulair] 10 mg PO DAILY #90 tab-cap 08/04/17 amoxicillin-pot clavulanate 1 tab PO BID 10 Days #20 tab 03/23/18 Allergies Allergy/AdvReac Type Severity Reaction Status Date / Time chlorhexidine Allergy Mild Skin Rash Unverified 03/23/18 11:42 metoclopramide HCl AdvReac Intermediate CREEPY Unverified 03/23/18 11:42 [From Reglan] CRAWLY FEELINGS General Stated Complaint: Headache VIOLET: 3 Review of Systems Review of Systems 7 systems reviewed and otherwise negative PFSH GERD (gastroesophageal reflux disease) Reactive airway disease Family History Mother Essential hypertension Depression Hyperlipidemia Father Diabetes Essential hypertension Personal history of malignant neoplasm Depression Heart disease Hyperlipidemia Stroke Sister No problems noted. Brother Depression Hyperlipidemia Brother Essential hypertension Depression Hyperlipidemia Asthma Grandfather Essential hypertension Heart disease Stroke Grandfather Diabetes Depression Grandmother Personal history of malignant neoplasm Depression Heart disease Stroke Grandmother Diabetes Heart disease Stroke Son Depression Asthma Daughter No problems noted. Medical History GERD (gastroesophageal reflux disease) Reactive airway disease Social History current occupational status: employed current occupation: Owns a daycare Smoking/Tobacco Use Status: Never alcohol intake: current alcohol intake frequency: a few times a month substance use type: does not use Surgical History Cholecystectomy (12/03/16) Luis F Fundoplication Sinus repair Social History current occupational status: employed current occupation: Owns a daycare Smoking/Tobacco Use Status: Never alcohol intake: current alcohol intake frequency: a few times a month substance use type: does not use Exam Narrative Exam Narrative: GEN: awake, alert, oriented 3. Pleasant, well groomed, interactive. HEAD: Normocephalic, atraumatic ENT: Mucous membranes moist, oropharynx unremarkable, External ear exam unremarkable, bilateral distended and erythematous tympanic membranes. Maxillary sinus tenderness to percussion bilateral EYES: PERRL, EOMI NECK: Full ROM, no SIMRAN, no menigismus CHEST/RESP: Nontender, clear to auscultation bilateral, no wheeze/rhonchi/rales CARDIOVASCULAR: RRR, no murmur, rub rashi. 2+ Rad pulse bilateral ABDOMEN: Soft, nontender, no mass. +Bowel sounds EXT: Full ROM, no edema, no rash Neuro: Grossly normal neurologic exam, conversant, interactive. Psych: Speech fluent, thoughts congruent, affect normal Course Vital Signs Temperature 36.8 C 03/23/18 11:38 Pulse 92 H 03/23/18 11:38 Respiratory Rate 20 03/23/18 11:38 Blood Pressure 134/84 03/23/18 11:38 Pulse Oximetry 99 03/23/18 11:38 Temperature 36.8 C 03/23/18 11:38 Temperature Source Temporal Artery Scan 03/23/18 11:38 Pulse 92 H 03/23/18 11:38 Respiratory Rate 20 03/23/18 11:38 Respiratory Effort Non-Labored 03/23/18 11:38 Blood Pressure 134/84 03/23/18 11:38 Blood Pressure Position Sitting 12/10/18 11:38 Pulse Oximetry 99 03/23/18 11:38 Oxygen Delivery Method Room Air 03/23/18 11:38 Oxygen Flow Rate 0 03/23/18 11:38 Pain Level 6 03/23/18 11:38
--- NOTE | 2018-03-23 11:56 | ED.GENADUL_ITS ---
Discharge Plan Disposition Patient Disposition: HOME Condition: Improving Discharge Details Chief Complaint: Headache Clinical Impression: Acute maxillary sinusitis Primary Care Provider: Leeanne Jaffe ED Provider: Yonny Dorantes Home Meds and New Rx's Prescriptions: New amoxicillin-pot clavulanate 875-125 mg tablet 1 tab PO BID 10 Days Qty: 20 RF: 0 Continue albuterol sulfate [ProAir HFA] 8.5 GM HFA aerosol inhaler 2 puff Inhalation Q6H PRN Qty: 1 RF: 11 Discontinued ibuprofen 600 MG tablet 600 mg PO PRN PRNRF: 0 promethazine 25 mg tablet 25 mg PO Q6H PRN (Reason: nausea and vomiting) Qty: 10 RF: 0 pseudoephedrine HCl [Sudafed 12 Hour] 120 mg Tablet Extended Release 1 tab PO DAILY RF: 0 No Action cetirizine [Zyrtec] 10 MG tablet 10 mg PO daily prn RF: 0 montelukast [Singulair] 10 MG tablet 10 mg PO DAILY Qty: 90 RF: 0 oxymetazoline [Nasal [place] 12 Hour] 15 ML spray,non-aerosol 15 ml NS PRN PRNRF: 0 Discharge Instructions Instructions: Sinusitis (ED) Additional Instructions: Please follow-up with your [facility] for recheck. Return to emerge part for any acute concerns. May use Tylenol as needed for pain. May use Benadryl 25-50 mg at bedtime for decongestion and sleep. Take antibiotics as prescribed. I recommend you take an zqyc-[id number] probiotic or live culture yogurt in the middle of the day between the doses of antibiotics. Medical Decision Making 37-year-old female who is 7-1/2 weeks presents with what she tells me is 2+ weeks of sinus pain and pressure with postnasal drip. It was associated with migraine headache days ago that is now improved. She has not had any abdominal pain, vaginal bleeding, and is scheduled to follow-up with [place] [facility]. She is afebrile and well-appearing. Her exam is consistent with acute maxillary sinusitis. Discussed with her home management in including course of antibiotics and the use of Benadryl at night for sleep and congestion. She will return for any concern HPI General Mode of arrival: ambulatory . Date/Time Provider Initiated Documentation: 03/23/18 11:36 . Limitations to Documentation: no limitations . Information obtained by: patient . History of Present Illness 37 year old F presents to the emergency department with the chief complaint of Bilateral sinus pain and pressure with postnasal drip and headache. , described as similar to prior episodes, Quality is described as aching and constant, and is localized to the head. Patient reports no radiation. Patient started experiencing this day(s) and it has been constant. No relieving factors improve symptom(s), Other factors that worsen symptoms ( Cough) . Patient notes no other symptoms.. Patient did receive the following treatments prior to arrival, none Related Data Home Medications Medication Instructions Recorded Confirmed cetirizine [Zyrtec] 10 mg PO daily prn tab-cap 10/12/12 03/23/18 albuterol sulfate [ProAir HFA] 2 puff INHALATION Q6H PRN #1 07/04/15 03/23/18 inhaler oxymetazoline [Nasal [place] 12 Hour] 15 ml NS PRN PRN 12/02/16 03/23/18 montelukast [Singulair] 10 mg PO DAILY #90 tab-cap 08/04/17 03/23/18 amoxicillin-pot clavulanate 1 tab PO BID 10 Days #20 tab 03/23/18 Previous Rx's Medication Instructions Recorded montelukast [Singulair] 10 mg PO DAILY #90 tab-cap 08/04/17 amoxicillin-pot clavulanate 1 tab PO BID 10 Days #20 tab 03/23/18 Allergies Allergy/AdvReac Type Severity Reaction Status Date / Time chlorhexidine Allergy Mild Skin Rash Unverified 03/23/18 11:42 metoclopramide HCl AdvReac Intermediate CREEPY Unverified 03/23/18 11:42 [From Reglan] CRAWLY FEELINGS General Stated Complaint: Headache VIOLET: 3 Review of Systems Review of Systems 7 systems reviewed and otherwise negative PFSH GERD (gastroesophageal reflux disease) Reactive airway disease Family History Mother Essential hypertension Depression Hyperlipidemia Father Diabetes Essential hypertension Personal history of malignant neoplasm Depression Heart disease Hyperlipidemia Stroke Sister No problems noted. Brother Depression Hyperlipidemia Brother Essential hypertension Depression Hyperlipidemia Asthma Grandfather Essential hypertension Heart disease Stroke Grandfather Diabetes Depression Grandmother Personal history of malignant neoplasm Depression Heart disease Stroke Grandmother Diabetes Heart disease Stroke Son Depression Asthma Daughter No problems noted. Medical History GERD (gastroesophageal reflux disease) Reactive airway disease Social History current occupational status: employed current occupation: Owns a daycare Smoking/Tobacco Use Status: Never alcohol intake: current alcohol intake frequency: a few times a month substance use type: does not use Surgical History Cholecystectomy (12/03/16) Luis F Fundoplication Sinus repair Social History current occupational status: employed current occupation: Owns a daycare Smoking/Tobacco Use Status: Never alcohol intake: current alcohol intake frequency: a few times a month substance use type: does not use Exam Narrative Exam Narrative: GEN: awake, alert, oriented 3. Pleasant, well groomed, interactive. HEAD: Normocephalic, atraumatic ENT: Mucous membranes moist, oropharynx unremarkable, External ear exam unremarkable, bilateral distended and erythematous tympanic membranes. Maxillary sinus tenderness to percussion bilateral EYES: PERRL, EOMI NECK: Full ROM, no SIMRAN, no menigismus CHEST/RESP: Nontender, clear to auscultation bilateral, no wheeze/rhonchi/rales CARDIOVASCULAR: RRR, no murmur, rub rashi. 2+ Rad pulse bilateral ABDOMEN: Soft, nontender, no mass. +Bowel sounds EXT: Full ROM, no edema, no rash Neuro: Grossly normal neurologic exam, conversant, interactive. Psych: Speech fluent, thoughts congruent, affect normal Course Vital Signs Temperature 36.8 C 03/23/18 11:38 Pulse 92 H 03/23/18 11:38 Respiratory Rate 20 03/23/18 11:38 Blood Pressure 134/84 03/23/18 11:38 Pulse Oximetry 99 03/23/18 11:38 Temperature 36.8 C 03/23/18 11:38 Temperature Source Temporal Artery Scan 03/23/18 11:38 Pulse 92 H 03/23/18 11:38 Respiratory Rate 20 03/23/18 11:38 Respiratory Effort Non-Labored 03/23/18 11:38 Blood Pressure 134/84 03/23/18 11:38 Blood Pressure Position Sitting 12/10/18 11:38 Pulse Oximetry 99 03/23/18 11:38 Oxygen Delivery Method Room Air 03/23/18 11:38 Oxygen Flow Rate 0 03/23/18 11:38 Pain Level 6 03/23/18 11:38
[2018-03-23 12:03] VITALS: BP 134/84; PULSE 92; RESP 20; TEMP 36.8; O2SAT 99
== END 2018-03-23 12:07 | disposition home or self-care (01) ==
PROVIDERS: Emergency Provider Emergency Medicine; PCP Nurse Practitioner Family
DX: J01.00 Acute maxillary sinusitis, unspecified (principal); Z33.1 Pregnant state, incidental; Z3A.08 8 weeks gestation of pregnancy
CPT/HCPCS: 99283

== ENCOUNTER 2018-06-06 09:48 | Emergency (ER) | payer MEDICAID, SELFPAY ==
[2018-06-06 09:54] VITALS: BP 121/77; PULSE 84; RESP 18; TEMP 36.8; O2SAT 97
--- NOTE | 2018-06-06 10:09 | ED.GENADUL_ITS ---
Discharge Plan Disposition Patient Disposition: HOME Condition: Improving Discharge Details Chief Complaint: EarProblem Clinical Impression: Acute maxillary sinusitis Primary Care Provider: Leeanne Jaffe ED Provider: Yonny Dorantes Home Meds and New Rx's Prescriptions: New amoxicillin-pot clavulanate 875-125 mg tablet 1 tab PO BID 10 Days Qty: 20 RF: 0 Continued cetirizine [Zyrtec] 10 MG tablet 10 mg PO daily prn RF: 0 ProAir HFA 8.5 GM HFA aerosol inhaler 2 puff Inhalation Q6H PRN Qty: 1 RF: 11 montelukast [Singulair] 10 MG tablet 10 mg PO DAILY Qty: 90 RF: 0 oxymetazoline [Nasal [place] 12 Hour] 15 ML spray,non-aerosol 15 ml NS PRN PRNRF: 0 Discharge Instructions Instructions: Sinusitis (ED) Additional Instructions: Follow-up with regular doctor for recheck in 2 weeks time. Take medications as prescribed. Continue the use of decongestants including Sudafed during the day for 3 days and Benadryl at bedtime if needed. Return for any acute concerns Medical Decision Making 38-year-old female presents from home with days of bilateral frontal sinus pain and pressure now with right ear discomfort. Exam is consistent with a developing otitis media and most consistent with maxillary sinusitis. She is a history of same in the past and has plans to follow-up with ENT. I will treated with a course of Augmentin and she will decongestant [id number] medications. She is stable for discharge at this time HPI General Mode of arrival: ambulatory . Date/Time Provider Initiated Documentation: 06/06/18 09:53 . Limitations to Documentation: no limitations . Information obtained by: patient . History of Present Illness 38 year old F presents to the emergency department with the chief complaint of Right ear pain and sinus pressure, described as moderate, Quality is described as dull and constant, and is localized to the head and right. Patient reports no radiation. Patient started experiencing this day(s) and it has been constant. No relieving factors improve symptom(s), No exacerbating factors reported . Patient notes denies fever/chills and headaches. Patient did r eceive the following treatments prior to arrival, none Related Data Home Medications Medication Instructions Recorded Confirmed cetirizine [Zyrtec] 10 mg PO daily prn tab-cap 10/12/12 06/06/18 ProAir HFA 2 puff INHALATION Q6H PRN #1 07/04/15 06/06/18 inhaler oxymetazoline [Nasal [place] 12 Hour] 15 ml NS PRN PRN 12/02/16 06/06/18 montelukast [Singulair] 10 mg PO DAILY #90 tab-cap 08/04/17 06/06/18 amoxicillin-pot clavulanate 1 tab PO BID 10 Days #20 tab 06/06/18 Previous Rx's Medication Instructions Recorded montelukast [Singulair] 10 mg PO DAILY #90 tab-cap 08/04/17 amoxicillin-pot clavulanate 1 tab PO BID 10 Days #20 tab 06/06/18 Allergies Allergy/AdvReac Type Severity Reaction Status Date / Time chlorhexidine Allergy Mild Skin Rash Unverified 06/06/18 09:59 metoclopramide HCl AdvReac Intermediate CREEPY Unverified 06/06/18 09:59 [From [facility]] CRAWLY FEELINGS General Stated Complaint: EarProblem VIOLET: 4 Review of Systems Review of Systems 8 systems reviewed and otherwise neg PFSH Social History current occupational status: employed current occupation: Owns a daycare Smoking and Tabacco status: Never alcohol intake: current alcohol intake frequency: a few times a month substance use type: does not use Exam Narrative Exam Narrative: GEN: awake, alert, oriented 3. Pleasant, well groomed, interactive. HEAD: Normocephalic, atraumatic ENT: Mucous membranes moist, oropharynx unremarkable, External ear exam unremarkable. Tympanic membrane distended, not erythematous, left tympanic membrane with fluid behind EYES: PERRL, EOMI NECK: Full ROM, no SIMRAN, no menigismus CHEST/RESP: Nontender, clear to auscultation bilateral, no wheeze/rhonchi/rales CARDIOVASCULAR: RRR, no murmur, rub rashi. 2+ Rad pulse bilateral Neuro: Grossly normal neurologic exam, conversant, interactive. Psych: Speech fluent, thoughts congruent, affect normal Course Vital Signs Temperature 36.8 C 06/06/18 09:54 Pulse 84 06/06/18 09:54 Respiratory Rate 18 06/06/18 09:54 Blood Pressure 121/77 06/06/18 09:54 Pulse Oximetry 97 06/06/18 09:54 Temperature 36.8 C 06/06/18 09:54 Temperature Source Temporal Artery Scan 06/06/18 09:54 Pulse 84 06/06/18 09:54 Respiratory Rate 18 06/06/18 09:54 Respiratory Effort Non-Labored 06/06/18 09:54 Blood Pressure 121/77 06/06/18 09:54 Blood Pressure Position Sitting 06/06/18 09:54 Pulse Oximetry 97 06/06/18 09:54 Oxygen Delivery Method Room Air 06/06/18 09:54 Oxygen Flow Rate 0 06/06/18 09:54 Pain Level 5 06/06/18 10:01
== END 2018-06-06 10:12 | disposition home or self-care (01) ==
PROVIDERS: Emergency Provider Emergency Medicine; PCP Nurse Practitioner Family
DX: J01.00 Acute maxillary sinusitis, unspecified (principal)
CPT/HCPCS: 99283

== ENCOUNTER 2019-11-22 21:59 | Emergency (ER) | payer MEDICAID, SELFPAY ==
[2019-11-22 22:03] VITALS: BP 148/76; PULSE 90; RESP 16; TEMP 37.2; O2SAT 98
--- NOTE | 2019-11-22 22:11 | W.ED.GENAD ---
Discharge Plan Disposition Patient Disposition: HOME Condition: Stable Discharge Details Chief Complaint: Sorethroat Clinical Impression: Pharyngitis Primary Care Provider: Leeanne Jaffe ED Provider: Yonny Dorantes Home Meds and New Rx's Prescriptions: New penicillin V potassium 500 mg tablet 500 mg PO TID 9 Days Qty: 27 RF: 0 Continued cetirizine [Zyrtec] 10 MG tablet 10 mg PO daily prn RF: 0 albuterol sulfate [ProAir HFA] 8.5 GM HFA aerosol inhaler 2 puff Inhalation Q6H PRN Qty: 1 RF: 11 montelukast [Singulair] 10 MG tablet 10 mg PO DAILY Qty: 90 RF: 0 oxymetazoline [Nasal [place] 12Hr(oxymetazoline] 15 ML spray,non-aerosol 15 ml NS PRN PRNRF: 0 Discharge Instructions Instructions: Pharyngitis (ED) Additional Instructions: Home to rest today. Small, frequent sips of fluids and/or popsicles as needed for comfort and hydration. May use Tylenol and/or ibuprofen as needed for pain. Please take penicillin as prescribed. Return for any acute concern. Medical Decision Making 39-year-old female, status post distant tonsillectomy, presents with day 2 of right-sided sore throat and feeling of a small mass on the lateral portion of her right tonsillar arch. On exam she does have erythema right greater than left with a hint of soft tissue swelling in the area of the right palatine tonsil. Uvula is midline and there is no other significant swelling. Rapid strep test obtained and positive. Will treat with single dose of dexamethasone for its anti-inflammatory properties as well as course of penicillin. Patient stable and appropriate for discharge. HPI General Mode of arrival: ambulatory. Date/Time Provider Initiated Documentation: 11/22/19 22:04. Limitations to Documentation: no limitations. Information obtained by: patient. History of Present Illness 39 year old F presents to the emergency department with the chief complaint of Right sore throat, described as moderate, Quality is described as dull and constant, and is localized to the mouth, neck and right. Patient reports no radiation. Patient started experiencing this day(s) and it has been constant. No relieving factors improve symptom(s), No exacerbating factors reported . Patient notes denies fever/chills. Related Data Home Medications Medication Instructions Recorded Confirmed cetirizine [Zyrtec] 10 mg PO daily prn tab-cap 10/12/12 11/22/19 albuterol sulfate [ProAir HFA] 2 puff INHALATION Q6H PRN #1 07/04/15 11/22/19 inhaler oxymetazoline [Nasal [place] 15 ml NS PRN PRN 12/02/16 11/22/19 12Hr(oxymetazoline] montelukast [Singulair] 10 mg PO DAILY #90 tab-cap 08/04/17 11/22/19 penicillin V potassium 500 mg PO TID 9 Days #27 tab 11/22/19 Previous Rx's Medication Instructions Recorded montelukast [Singulair] 10 mg PO DAILY #90 tab-cap 08/04/17 penicillin V potassium 500 mg PO TID 9 Days #27 tab 11/22/19 Allergies Allergy/AdvReac Type Severity Reaction Status Date / Time chlorhexidine Allergy Mild Skin Rash Unverified 11/22/19 22:07 metoclopramide HCl AdvReac Intermediate CREEPY Unverified 11/22/19 22:07 [From Reglan] CRAWLY FEELINGS General Stated Complaint: Sorethroat VIOLET: 3 Review of Systems Narrative: No fever, chills, no drooling, no cough, 4 systems reviewed and otherwise negative [facility] Medical History GERD (gastroesophageal reflux disease) Reactive airway disease Surgical History (Updated 10/23/18 @ 13:01 by Pedro Pablo Schneider) Cholecystectomy (12/03/16) Luis F Fundoplication Ruddy Manzano-2006 Sinus repair 2005; dr. carr Family History Mother Essential hypertension Depression Hyperlipidemia Father Diabetes Essential hypertension Personal history of malignant neoplasm KIDNEY/UPPER GI Depression Heart disease Hyperlipidemia Stroke Sister No problems noted. Brother Depression Hyperlipidemia Brother Essential hypertension Depression Hyperlipidemia Asthma Grandfather Essential hypertension Heart disease Stroke Grandfather Diabetes Depression Grandmother Personal history of malignant neoplasm SKIN Depression Heart disease Stroke Grandmother Diabetes Heart disease Stroke Son Depression Asthma Daughter No problems noted. Social History Smoking/Tobacco Use Status: Never Alcohol Intake: current Alcohol Intake frequency: a few times a month Drug use: Never Substance use type: does not use current occupation: Owns a daycare Do you feel safe at home: Yes Do you feel safe in your relationship?: Yes Exam Narrative Exam Narrative: GEN: awake, alert, oriented 3. Pleasant, well groomed, interactive. HEAD: Normocephalic, atraumatic ENT: Mucous membranes moist, oropharynx with right tonsillar pillar erythema, mild soft tissue swelling laterally on the right at the area of the palatine tonsil, no overlying exudate, the uvula is midline, External ear exam unremarkable EYES: PERRL, EOMI NECK: Full ROM, right anterior submandibular SIMRAN, no menigismus CHEST/RESP: No respiratory distress EXT: Full ROM, no edema, no rash Neuro: Grossly normal neurologic exam, conversant, interactive. Psych: Speech fluent, thoughts congruent, affect normal Course Vital Signs Vital signs: Vital Signs Temperature 37.2 C 11/22/19 22:03 Pulse 90 11/22/19 22:03 Respiratory Rate 16 11/22/19 22:03 Blood Pressure 148/76 H 11/22/19 22:03 Pulse Oximetry 98 11/22/19 22:03 Temperature 37.2 C 11/22/19 22:03 Temperature Source Tympanic 11/22/19 22:03 Pulse 90 11/22/19 22:03 Respiratory Rate 16 11/22/19 22:03 Respiratory Effort 11/22/19 22:07 Blood Pressure 148/76 H 11/22/19 22:03 Blood Pressure Position Sitting 11/22/19 22:03 Pulse Oximetry 98 11/22/19 22:03 Oxygen Delivery Method Room Air 11/22/19 22:03 Oxygen Flow Rate 0 11/22/19 22:03 Pain Level 4 11/22/19 22:03
[2019-11-22 22:29] VITALS: BP 148/76; PULSE 90; RESP 16; TEMP 37.2; O2SAT 98
[2019-11-22] MEDS: Dexamethasone 4 MG TAB 8 MG PO (22:32)
[2019-11-22] MEDS: Penicillin V POTASSIUM 500 MG TAB, 4 TABS/BTL PO (22:33)
== END 2019-11-22 22:35 | disposition home or self-care (01) ==
PROVIDERS: Emergency Provider Emergency Medicine; PCP Nurse Practitioner Family
DX: J02.0 Streptococcal pharyngitis (principal)
CPT/HCPCS: 87880; 99283; J8540

== ENCOUNTER 2021-03-12 13:06 | Emergency (ER) | payer MEDICAID, SELFPAY ==
[2021-03-12 13:17] VITALS: BP 131/99; PULSE 88; RESP 18; TEMP 37; O2SAT 97
--- NOTE | 2021-03-12 13:58 | ED.GENADUL_ITS ---
Discharge Plan Disposition Patient Disposition: HOME Condition: Stable Discharge Details Clinical Impression: Foot injury Primary Care Provider: Leeanne Jaffe ED Provider: Ryan Grace Home Meds and New Rx's Prescriptions: Continued cetirizine [Zyrtec] 10 MG tablet 10 mg PO daily prn RF: 0 albuterol sulfate [ProAir HFA] 8.5 GM HFA aerosol inhaler 2 puff Inhalation Q6H PRN Qty: 1 RF: 11 montelukast [Singulair] 10 MG tablet 10 mg PO DAILY Qty: 90 RF: 0 oxymetazoline [Nasal [place] 12Hr(oxymetazoline] 15 ML spray,non-aerosol 15 ml NS PRN PRNRF: 0 Discharge Instructions Instructions: Foot Sprain (ED) Additional Instructions: X-ray is normal. Rest, elevate, cool compresses every 2 hours for 20 minutes. [id number] Tylenol and/or Motrin as directed for discomfort. Wear postop shoe and use crutches as needed, advance activity as tolerated. Please watch for new or worsening the ER for any concerns Medical Decision Making 40-year-old female struck her left fourth and fifth toe yesterday while wearing, today now has distal foot pain as well. Denies any other injury, numbness, tingling, weakness. Will obtain x-ray and reassess X-ray unremarkable. Discussed disposition with patient. Encourage [id number] Tylenol and/or Motrin, resting, elevation, cool compresses. W ill place into a postop shoe and crutches with teaching. Standard discharge and return precautions provided. This documentation was generated using O4ITation system, please disregard any oddities of phrase or misspellings. Medical Records Medical records reviewed: Yes I reviewed the patient's medical records. Imaging Data Radiologic Study: Attestation: I personally reviewed and interpreted this imaging study as follows: Imaging: X-Ray Radiologist's impression: XR FOOT LT COMPLETE CLINICAL HISTORY [ stubbed foot yesterday. ] [] TECHNIQUE 2D digital imaging was performed. COMPARISON [No exams were available for comparison] [] FINDINGS [There is no evidence of fracture nor diastasis of the Lisfranc joint. No radiopaque foreign body. No osseous lesions. No erosions. Bone density is normal. No pes planus.] [] IMPRESSION [No fracture evident. No radiopaque foreign body HPI General Mode of arrival: ambulatory . Date/Time Provider Initiated Documentation: 03/12/21 13:26 . Limitations to Documentation: no limitations . Information obtained by: patient . History of Present Illness 40 year old F presents to the emergency department with the chief complaint of stubbed foot yeterday, described as moderate and severe, with intensity rated at 7. Quality is described as aching, and is localized to the left and lower extremity. Patient reports no radiation. Patient started experiencing this day(s) (1) and it has been constant and other (worsening). No relieving factors improve symptom(s), Movement worsens symptoms . Patient notes no other symptoms.. Patient did receive the following treatments prior to arrival, none Related Data Home Medications Medication Instructions Recorded Confirmed cetirizine [Zyrtec] 10 mg PO daily prn tab-cap 10/12/12 03/12/21 albuterol sulfate [ProAir HFA] 2 puff INHALATION Q6H PRN #1 07/04/15 03/12/21 inhaler oxymetazoline [Nasal [place] 15 ml NS PRN PRN 12/02/16 03/12/21 12Hr(oxymetazoline] montelukast [Singulair] 10 mg PO DAILY #90 tab-cap 08/04/17 03/12/21 Previous Rx's Medication Instructions Recorded montelukast [Singulair] 10 mg PO DAILY #90 tab-cap 08/04/17 Allergies Allergy/AdvReac Type Severity Reaction Status Date / Time chlorhexidine Allergy Mild Skin Rash Unverified 03/12/21 13:25 metoclopramide HCl AdvReac Intermediate CREEPY Unverified 03/12/21 13:25 [From Reglan] CRAWLY FEELINGS General Stated Complaint: Orthopedic VIOLET: 4 Review of Systems Constitutional Constitutional: Denies weakness Musculoskeletal Musculoskeletal: Denies deformity, Reports arthralgias, Denies numbness, Reports stiffness and Denies tingling Integumentary/Breasts Skin/Breast: Denies erythema Neurologic Neurologic: Denies numbness, Denies tingling and Denies weakness [facility] Active Problem List (Updated 03/12/21 @ 14:41 by ABHISHEK Duran) Foot injury (Acute) History of sinus surgery (Acute) Status post Luis F fundoplication (Acute) Thyroiditis (Acute 04/25/15) Chronic diarrhea (Acute) Pap smear vag w ASC-US (Acute) Migraine (Acute) Hyperlipidemia (Acute) Depressive disorder (Acute) Chronic tonsillitis (Acute 09/22/11) Asthma (Acute) Allergic rhinitis (Acute) Medical History (Updated 03/12/21 @ 14:41 by ABHISHEK Duran) GERD (gastroesophageal reflux disease) Reactive airway disease Surgical History Cholecystectomy (12/03/16) Luis F Fundoplication Ruddy Manzano-2006 Sinus repair 2005; dr. carr Family History Mother Essential hypertension Depression Hyperlipidemia Father Diabetes Essential hypertension Personal history of malignant neoplasm KIDNEY/UPPER GI Depression Heart disease Hyperlipidemia Stroke Sister No problems noted. Brother Depression Hyperlipidemia Brother Essential hypertension Depression Hyperlipidemia Asthma Grandfather Essential hypertension Heart disease Stroke Grandfather Diabetes Depression Grandmother Personal history of malignant neoplasm SKIN Depression Heart disease Stroke Grandmother Diabetes Heart disease Stroke Son Depression Asthma Daughter No problems noted. Social History Smoking/Tobacco Use Status: Never Smoking risk assessment performed?: Yes Alcohol Intake: current Alcohol Intake frequency: a few times a month Drug use: Never Substance use type: does not use current occupation: Owns a daycare Do you feel safe at home: Yes Do you feel safe in your relationship?: Yes Exam Const General: cooperative, healthy appearing, comfortable and no acute distress Orientation: alert and awake [facility] Head: normal to inspection, normocephalic and atraumatic Eyes General: appearance normal, both eyes and all related structures Conjunctivae: conjunctivae normal Neck Neck: normal visual inspection, trachea midline and supple Resp Effort & Inspection: normal respiratory effort and able to speak in complete sentences Cardio Rate: regular rate Rhythm: regular rhythm Skin General skin exam: no rashes or lesions noted Neuro General: patient alert, patient awake, moves all extremities and no focal motor deficits Cognition: normal cognition Speech: speech normal Gait: antalgic Motor: muscle tone normal throughout Sensory Exam: no sensory deficits noted Extrem General: normal to inspection, full ROM and capillary refill normal Ankle/foot/toe images: 2 1. Normal inspection, no erythema, ecchymosis or swelling. Diffuse discomfort to palpation. Normal capillary refill and dorsalis pedal pulse. Skin is intact Psych Appearance: grossly normal Mental Status: mental status grossly normal Course Vital Signs Vital signs: Vital Signs Temperature 37 C 03/12/21 13:17 Pulse 88 03/12/21 13:17 Respiratory Rate 18 03/12/21 13:17 Blood Pressure 131/99 H 03/12/21 13:17 Pulse Oximetry 97 03/12/21 13:17 Temperature 37 C 03/12/21 13:17 Temperature Source Temporal Artery Scan 03/12/21 13:17 Pulse 88 03/12/21 13:17 Respiratory Rate 18 03/12/21 13:17 Blood Pressure 131/99 H 03/12/21 13:17 Pulse Oximetry 97 03/12/21 13:17 Oxygen Delivery Method Room Air 03/12/21 13:17 Oxygen Flow Rate 0 03/12/21 13:17 Pain Level 4 03/12/21 13:17
--- NOTE | 2021-03-12 13:58 | DI.RAD_ITS ---
Exam(s) XR FOOT LT COMPLETE EXAM: XR FOOT LT COMPLETE CLINICAL HISTORY: stubbed foot yesterday. TECHNIQUE: 2D digital imaging was performed. COMPARISON: No exams were available for comparison FINDINGS: There is no evidence of fracture nor diastasis of the Lisfranc joint. No radiopaque foreign body. N o osseous lesions. No erosions. Bone density is normal. No pes planus. IMPRESSION: No fracture evident. No radiopaque foreign body. DATA REPOSITORY: RADIATION DOSE DELIVERED:
== END 2021-03-12 14:55 | disposition home or self-care (01) ==
PROVIDERS: Emergency Provider Physician Assistant; PCP Nurse Practitioner Family
DX: S99.922A Unspecified injury of left foot, initial encounter (principal); W22.09XA Striking against other stationary object, initial encounter
CPT/HCPCS: 99283; 73630

== ENCOUNTER 2021-09-28 07:58 | Outpatient (REF) | payer MEDICAID, SELFPAY ==
--- NOTE | 2021-09-28 07:15 | SKI_PTH ---
PATIENT: Aisha Zuñiga LOC: [facility] U#:[id number] AGE/SX: 41/F ROOM: RE09/28/[address]: ABHISHEK Jin : 1980 BED: DIS: 09/28/2021 SPEC #: [id number] RECD: 09/28/21 11:41 STATUS: [facility] REJayy #: [id number] MARVIN: 09/28/21 07:[address]: Nora Krishnan DEPT: Surgical Specimen RECD BY: Mihaela Ocasio ENTERED: 09/28/21 11:43 SP TYPE: ANGE DEE DR: Leeanne Jaffe, [employer] Tissues: 1 - SKIN BIOPSY(SHAVE/PUNCH) 2 - SKIN BIOPSY(SHAVE/PUNCH) 3 - SKIN BIOPSY(SHAVE/PUNCH) 4 - SKIN BIOPSY(SHAVE/PUNCH) Procedures: SKIN LEVEL 4 Comments: [id number]
== END 2021-09-28 07:59 | disposition home or self-care (01) ==
LOC: LBN 07:58
PROVIDERS: PCP Nurse Practitioner Family; Visit Provider Physical Therapy Assistant
DX: L98.6 Other infiltrative disorders of the skin and subcutaneous tissue; L53.8 Other specified erythematous conditions
CPT/HCPCS: 88305

== ENCOUNTER 2021-09-28 08:33 | Observation (INO) | payer MEDICAID, SELFPAY ==
[2021-09-28 09:10] LABS: Abs Immature Grans 0.01 10^3/uL (0.0-0.06); Absolute Basophil Count 0.02 10^3/uL (0.0-0.2); Absolute Eosinophil Count 0.05 10^3/uL (0.0-0.7); Absolute Lymphocyte Count 1.22 10^3/uL (1.2-3.4); Absolute Monocyte Count 0.47 10^3/uL (0.1-0.8); Absolute Neutrophil Count 3.77 10^3/uL (1.2-6.7); Basophils % 0.4; Eosinophils % 0.9; HCT 38.8 % (36.0-46.0); HGB 12.8 g/dL (11.2-15.7); Immature Grans % 0.2; MCH 30.5 pg (27.0-33.0); MCV 93 fL (80-95); MPV 9.9 fL (8.0-11.0); Monocytes % 8.5; Platelet Count 271 10^3/uL (130-400); RBC 4.19 10^6/uL (3.93-5.22); RDW 12.1 % (11.7-14.6); RDW-SD 40.8 fL; WBC 5.54 10^3/uL (4.4-10.8)
[2021-09-28 09:30] LABS: ALT 49 U/L (14-59); AST 22 U/L (15-37); Albumin 3.3 g/dL (3.4-5.0); Alkaline Phosphatase 120 U/L (46-116); Anion Gap 10.1 mmol/L (3-11); BUN 15 mg/dL (7-18); Bilirubin, Total 0.5 mg/dL (0.2-1.0); CO2 23.9 mmol/L (21.0-32.0); CREATININE 0.8 mg/dL (0.55-1.02); Calcium 8.7 mg/dL (8.5-10.1); Chloride 108 mmol/L (98-107); Glucose 102 mg/dL (74-106); Potassium 3.8 mmol/L (3.5-5.1); Sodium 142 mmol/L (136-145); TSH (W/Ref FT4) 1.62 uIU/mL (0.36-3.74); Total Protein 7.4 g/dL (6.4-8.2)
[2021-09-28 09:41] LABS: Source Nasal/Nares
[2021-09-28 10:16] VITALS: BP 116/78; PULSE 88; RESP 16; TEMP 36.7; O2SAT 96
[2021-09-28 10:19] VITALS: BP 116/78; PULSE 88; RESP 16; TEMP 36.7; O2SAT 96
[2021-09-28 10:32] LABS: COVID-19 PCR Negative (Negative)
[2021-09-28] MEDS: diphenhydrAMINE 25 MG CAP 50 MG PO (11:02)
[2021-09-28] MEDS: methylPREDNISolone SUCC 40 MG VIAL IVP ×2 (11:07→20:13)
[2021-09-28] MEDS: Normal Saline Flush 10 ML SYR (11:07)
[2021-09-28] MEDS: Famotidine 20 MG TAB PO ×2 (12:01→20:13)
[2021-09-28 16:12] VITALS: BP 110/76; PULSE 91; RESP 16; TEMP 37.2; O2SAT 94
--- NOTE | 2021-09-28 16:57 | W.PM.HP.N ---
Date of service: 09/28/21 Time of Service: 10:45 Assessment and Plan Assessment and plan (1) Erythema nodosum: Status: Acute Assessment and plan: Biopsies pending. [place] pending; possible autoimmune etiology. Pt has had a h/o thyroiditis. CRP pending. Trend. CXR; sarcoid?, TB? Evidence of infectious process, though she denies cough, SOA, F/C. She did have a sinusitis dxd in August and had a sore throat that was evaluated at urgent care clinic; rapid strep negative. Influenza and Covid testing also negative. Methylprednisolone 40mg IV Q12 initiated. A 50mg dose of po Diphenhydramine given. She had taken Zyrtec x2 days prior to admission w/o effect. Pepcid 20mg po BID Will give a dose of colchicine 0.6 mg now. BX sites with discomfort. Tramadol prn ordered. (2) Anal fissure: Status: Acute Assessment and plan: Healed. Does use stool softner routinely now. Colace 100mg BID. (3) Asthma: Assessment and plan: No exacerbation Albuterol MDI prn. History of Present Illness History of Present Illness Chief Complaint: Painful skin lesions Narrative: This is a 41 yo female with a PMH of seasonal allergies, asthma, HLD, thyroiditis, chronic diarrhea, rectal fissure. She presents as a direct admit from the general surgery office where was being seen for presumed erythema nodosum with biopsies obtained. She endorses that on Sep 09 2021 she developed red, raised lesions on her legs (below the knees) that were painful. The lesions grew in size and number. She at first thought they might be bug bites. No itch noted. No f/C. On 09/20/21 she was seen in the [facility] gen surgery clinic for evaluation of rectal pain and the lesions were noted. She did not want to proceed with biopsies at that time. Since that visit the lesions have grown larger and are more numerous. They are predominately on the BLEs but there are 2 lesions on the upper extremities; 1 on each of the extensor surfaces near the elbows. The lesions are painful, even with pants rubbing on them. She endorses swelling of the legs below the knees. Admitted for further evaluation and treatment. Review of Systems All systems reviewed & are unremarkable except as noted in HPI and below PFSH All Active Problems (Updated 09/28/21 @ 17:16 by Trey Vinson MD) Anal fissure (Acute) Erythema nodosum (Acute) Rectal pain (Acute) Chronic diarrhea (Acute) Medical History Acute sinus infection Allergic rhinitis [place], sinus surg Asthma Chronic tonsillitis (09/22/11) 09/12/[address] Srivastava Cough Depressive disorder Hosp. in 1998; borderline personality traits Foot injury GERD (gastroesophageal reflux disease) Hyperlipidemia Migraine Pap smear vag w ASC-US HX. of colp 1998,2000,2001 Reactive airway disease Thyroiditis (04/25/15) Surgical History Cholecystectomy (12/03/16) History of sinus surgery Luis F Fundoplication Ruddy Manzano-2006 Sinus repair 2005; dr. srivastava Family History Mother Essential hypertension Depression Hyperlipidemia Father Diabetes Essential hypertension Personal history of malignant neoplasm KIDNEY/UPPER GI Depression Heart disease Hyperlipidemia Stroke Sister No problems noted. Brother Depression Hyperlipidemia Brother Essential hypertension Depression Hyperlipidemia Asthma Grandfather Essential hypertension Heart disease Stroke Grandfather Diabetes Depression Grandmother Personal history of malignant neoplasm SKIN Depression Heart disease Stroke Grandmother Diabetes Heart disease Stroke Son Depression Asthma Daughter No problems noted. Social History Smoking/Tobacco Use Status: Never Smoking risk assessment performed?: Yes Alcohol Intake: current Alcohol Intake frequency: a few times a month Drug use: Never Substance use type: does not use current occupation: Owns a daycare Do you feel safe at home: Yes Do you feel safe in your relationship?: Yes Meds Allergies and Home Medications Allergies Allergy/AdvReac Type Severity Reaction Status Date / Time chlorhexidine Allergy Mild Skin Rash Unverified 09/28/21 07:00 metoclopramide HCl AdvReac Intermediate CREEPY Unverified 09/28/21 07:00 [facility] CRAWLY FEELINGS Home Medications Medication Instructions Recorded Confirmed Type cetirizine 10 mg tablet (Zyrtec) 10 mg PO daily prn 10/12/12 09/28/21 History albuterol sulfate 90 mcg/actuation 2 puff inhalation Q6H PRN ##1 07/04/15 09/28/21 History aerosol inhaler (ProAir HFA) lidocaine HCl 2 % mucosal jelly 1 applic topical TID PRN pain #30 09/17/21 09/28/21 Rx mL nifedipine 10 mg capsule 0.2 mg PO TID 30 days #1 cap 09/17/21 09/28/21 Rx celecoxib 100 mg capsule (Celebrex) 100 mg PO BID LE pain/erythema 09/26/21 09/28/21 Rx nodosum 10 days #20 caps Exam Narrative Exam Narrative: Sitting up in bed. Pleasant, conversant. Const General: cooperative and no acute distress Nutritional Appearance: obese Orientation: alert and oriented x3 Eyes General: appearance normal, both eyes and all related structures Sclera: sclerae normal Neck Neck: normal visual inspection and no JVD Resp Effort & Inspection: normal respiratory effort Auscultation: clear to auscultation bilaterally Cardio Rate: regular rate Rhythm: regular rhythm Heart Sounds: S1 normal and S2 normal Skin Full body images: 1. Raised, red, firm and tender nodular lesions of various sizes up to 4 inches in diameter. 2. small, raised, red, firm and tender lesion 3. Same as 2. Extrem General: no calf tenderness and edema Laterality: bilateral (Nonpitting) Psych Appearance: grossly normal Mental Status: mental status grossly normal Affect: normal affect Thought Content: normal Insight: insight good Judgment: judgment good Results Labs Result diagrams: 09/28/21 09:00 09/28/21 09:00 Labs: Laboratory Results - last 24 hr 09/28/21 09/28/21 09/28/21 09:00 09:00 09:30 WBC 5.54 RBC 4.19 Hgb 12.8 Hct 38.8 MCV 93 MCH 30.5 MCHC 33.0 RDW 12.1 Plt Count 271 MPV 9.9 Immature Gran % 0.2 Neutrophils % 68.0 Lymphocytes % 22.0 Monocytes % 8.5 Eosinophils % 0.9 Basophils % 0.4 Nucleated RBC % 0.0 Absolute Neutrophils 3.77 Absolute Lymphocytes 1.22 Absolute Monocytes 0.47 Absolute Eosinophils 0.05 Absolute Basophils 0.02 Sodium 142 Potassium 3.8 Chloride 108 H Carbon Dioxide 23.9 Anion Gap 10.1 BUN 15 Creatinine 0.8 Estimated GFR/1.73 m2 >= 60.00 Glucose 102 Calcium 8.7 Total Bilirubin 0.5 AST 22 ALT 49 Alkaline Phosphatase 120 H Total Protein 7.4 Albumin 3.3 L TSH 1.62 COVID-19 Source Nasal/Nares SARS-CoV-2 (PCR) Negative Last Vital Signs Temp 37.2 C 09/28/21 16:12 Pulse 91 H 09/28/21 16:12 Resp 16 09/28/21 16:12 BP 110/76 09/28/21 16:12 Pulse Ox 94 09/28/21 16:12
[2021-09-28] MEDS: Colchicine 0.6 MG TAB PO (17:11)
[2021-09-28] MEDS: Acetaminophen 325 MG TAB PO (17:15)
--- NOTE | 2021-09-28 17:56 | DI.RAD_ITS ---
Exam(s) XR CHEST 2V PA LATERAL EXAM: XR CHEST 2V PA LATERAL CLINICAL HISTORY: erythema nodosum TECHNIQUE: 2D digital imaging was performed. COMPARISON: CR PORTABLE CHEST ONE VIEW from 12/05/2016 CR XR FOOT LT COMPLETE from 03/12/2021 FINDINGS: HEART: Normal. PULMONARY VASCULATURE: Question of bilateral enlargement of the pulmonary arteries versus bilateral h ilar adenopathy. LUNGS: Question of rounded density beneath the left hilum versus adenopathy. This is new since the p revious exam. No evidence of infiltrate. PLEURAL SPACE: No pleural effusion or pneumothorax. BONE:Unremarkable for age. IMPRESSION: Apparent bilateral hilar adenopathy versus prominent pulmonary arteries.. Question of a additional 3 centimeter left infrahilar density clinical correlation recommended.. No pneumothorax.. DATA REPOSITORY: RADIATION DOSE DELIVERED:
--- NOTE | 2021-09-28 18:25 | DI.VRAD_ITS ---
PROCEDURE INFORMATION: Exam: XR Chest Exam date and time: 09/28/2021 17:55 Age: 41 years old Clinical indication: Other: Erythema nodosum; Prior surgery; Surgery date: Post-operative (0-2 days); Surgery type: Biopsy TECHNIQUE: Imaging protocol: Radiologic exam of the chest. Views: 2 views. COMPARISON: [place] PORTABLE CHEST ONE VIEW 12/05/2016 16:38 FINDINGS: Lungs: A 3 cm nodular density projects over the left infrahilar region.Otherwise no airspace consolidation. The right hilum appears prominent more so than the left hilum. Question adenopathy or vascular enlargement. Pleural spaces: No pleural effusion. No pneumothorax. Heart/Mediastinum: No significant cardiomegaly. Bones/joints: No acute fracture. Intraperitoneal space: Right upper quadrant clips, probable cholecystectomy. IMPRESSION: 3 cm left infrahilar density, presumably the biopsy site. No pneumothorax. Dictated and Authenticated by: Isela Vance MD. Ordering:KALEB Yang MD
[2021-09-28 19:15] LABS: Lab Add On Test DONE
[2021-09-28 19:27] LABS: C-Reactive Protein 4.07 mg/dL (0.0-0.3)
[2021-09-28] MEDS: traMADol 50 MG TAB PO (20:13)
[2021-09-28] MEDS: Docusate Sodium 100 MG CAP PO (20:13)
[2021-09-28] MEDS: Normal Saline Flush 10 ML SYR IVP (20:14)
[2021-09-28 23:12] VITALS: BP 122/75; PULSE 85; RESP 16; TEMP 36.6; O2SAT 96
[2021-09-29] MEDS: traMADol 50 MG TAB PO (05:34)
[2021-09-29 06:34] LABS: C-Reactive Protein 3.09 mg/dL (0.0-0.3)
[2021-09-29 08:05] VITALS: BP 116/74; PULSE 85; RESP 17; TEMP 36.7; O2SAT 96
[2021-09-29] MEDS: Docusate Sodium 100 MG CAP PO (08:25)
[2021-09-29] MEDS: Famotidine 20 MG TAB PO (08:26)
[2021-09-29] MEDS: Normal Saline Flush 10 ML SYR IVP (08:51)
[2021-09-29] MEDS: methylPREDNISolone SUCC 40 MG VIAL IVP (08:51)
--- NOTE | 2021-09-29 10:32 | DSE_ITS ---
Date of service: 09/29/21 Time of Service: 10:32 DS: Diagnosis Discharge Diagnosis (1) Erythema nodosum: Status: Acute (2) Anal fissure: Status: Acute (3) Asthma: Discharge Plan Disposition Patient Disposition: HOME Condition: Stable Discharge Details Reason For Visit: Erythema Nodosum Admit Date/Time: 09/28/21 08:33 Admit Provider: Trey Vinson Attending Provider: Trey Vinson [facility] Course: This is a 41 yo female with a history of seasonal allergies, asthma, HLD, thyroiditis, chronic diarrhea, rectal fissure. She presented as a direct admit from the general surgery office where was being seen for presumed erythema nodosum with biopsies obtained. Her symptoms first started at the end of August where she developed red, raised lesions on her legs (below the knees) that were painful, she thought they were bug bites.? The lesions grew in size and number and were not itchy but painful. On 09/20/21 she was seen in the [facility] general surgery clinic for evaluation of rectal pain and the lesions were noted.?They recommended biopsy but she declined at that time. She was seen again in follow up for her anal fissure and decided to proceed with the biopsy, which is still pending at time of discharge. Direct admission to hositalist services for further management was requested. she was given IV steroids and colchicine with some improvement in her discomfort. She will be discharged to home on a steroid burst and colchicine and will f/u outpatient with pcp and surgery as scheduled. She was placed on famotidine for gi prophylaxis. discharged to home with no services. discussed with DR Ocampo. Home Meds and New Rx's Prescriptions: New famotidine 20 mg Tablet 20 mg PO BID Qty: 60 0RF colchicine [Mitigare] 0.6 mg capsule 0.6 mg PO DAILY Qty: 7 0RF prednisone 20 mg tablet 40 mg PO DAILY Qty: 10 0RF Continued lidocaine HCl 2 % jelly 1 applic topical TID PRN (Reason: pain) Qty: 30 0RF nifedipine 10 mg capsule 0.2 mg PO TID 30 Days Qty: 1 0RF Rx Instructions: 0.2% ointment TID to anus disp: 30 days supply cetirizine [Zyrtec] 10 MG tablet 10 mg PO daily prn albuterol sulfate [ProAir HFA] 8.5 GM HFA aerosol inhaler 2 puff Inhalation Q6H PRN Qty: 1 Discontinued celecoxib [Celebrex] 100 mg capsule 100 mg PO BID MDD 200mg 10 Days Qty: 20 0RF Discharge Instructions Instructions: Erythema Nodosum (GEN) Additional Instructions: Erythema nodosum usually gets better if the condition that is causing it goes away or is treated. As erythema nodosum gets better, the bumps start to look like bruises and then go away. They are usually gone in 2 to 8 weeks. Sometimes the bumps leave dark spots on your skin that can take months to go away. But they do not leave permanent scars. While you have the bumps, there are some things you can do to help reduce the pain. You can: ?Raise your legs up while you are sitting ?Rest ?Wear special socks called compression stockings Your biopsy results are still pending at time of discharge. Your outpatient provider will review those results when they are available. The prednisone and colchicine should be taken with food to reduce stomach irritation. You have been started on pepcid to protect your stomach while on these medications. Since you will be taking prednisone, you should stop the celebrex. Stand Alone Forms: Nursing Discharge Form Referrals: Leeanne Jaffe NP [Primary Care Provider] - Alexandria Kohli MD [ [facility] STAFF PHYSICIAN] - Activity:: Activity as Tolerated Equipment/Supplies:: No Equipment Needed Diet:: As Tolerated Discharge Orders Discharge Orders: Discharge Order (Routine); Ordered 09/29/21 Ordered By: Tasha Rowe DS: Summary Time Spent with Patient providing and/or coordinating discharge services: Less than 30 minutes Status at Discharge Functional status at discharge: independent ambulation Overall status at discharge: patient is progressing back to baseline Mental Status: mental status grossly normal Speech and Movement: speech and movement normal Mood: congruent mood Affect: normal affect Exam Narrative Exam Narrative: Sitting up in bed. Pleasant, conversant. Const General: cooperative and no acute distress Nutritional Appearance: obese Orientation: alert and oriented x3 Eyes General: appearance normal, both eyes and all related structures Neck Neck: normal visual inspection Resp Effort & Inspection: normal respiratory effort Auscultation: clear to auscultation bilaterally Cardio Rate: regular rate Rhythm: regular rhythm Skin Rashes: rashes noted (bilateral lower extremities brown/erythematous, tender nodules on shins) Extrem General: no calf tenderness and edema Laterality: bilateral (Nonpitting) Psych Appearance: grossly normal Mental Status: mental status grossly normal Speech and Movement: speech and movement normal Mood: congruent mood Affect: normal affect Thought Content: normal Insight: insight good Judgment: judgment good DS: Data Vitals/I&O Vitals and I&O: Vital Signs Temperature 36.7 C 09/29/21 08:05 Temperature Source Tympanic 09/29/21 08:05 Pulse 85 09/29/21 08:05 Pulse Rhythm Regular 09/29/21 08:52 Respiratory Rate 17 09/29/21 08:05 Respiratory Effort Non-Labored 09/29/21 08:52 Respiratory Depth Normal 09/29/21 08:52 Respiratory Pattern Normal 09/29/21 08:52 Blood Pressure 116/74 09/29/21 08:05 Pulse Oximetry 96 09/29/21 08:05 Oxygen Delivery Method Room Air 09/29/21 08:05 Oxygen Flow Rate 0 09/29/21 08:05 Pain Level 6 09/28/21 18:15 Intake & Output 09/28/21 09/28/21 09/29/21 11:59 23:59 11:59 Intake Total 251 / 251 Balance 251 / 251 Weight 122.016 kg Intake: IV Oral 240 / 240 Other: Urine Appearance Clear Comment pt voiding independently in toilet. patient voids independently Data Completed and Pending Labs on day of discharge: Labs from last 24 hours 09/29/21 09/28/21 09/28/21 05:48 09:30 09:00 C-Reactive Protein 3.09 H 4.07 H SARS-CoV-2 (PCR) Negative Add-On Test Request 09/28/21 09:00 C-Reactive Protein SARS-CoV-2 (PCR) Add-On Test Request DONE [facility] All Active Problems (Updated 09/28/21 @ 17:16 by Trey Vinosn MD) Anal fissure (Acute) Erythema nodosum (Acute) Rectal pain (Acute) Chronic diarrhea (Acute) Medical History Acute sinus infection Allergic rhinitis Carola, sinus surg Asthma Chronic tonsillitis (09/22/11) 09/12/[address] Srivastava Cough Depressive disorder Hosp. in 1998; borderline personality traits Foot injury GERD (gastroesophageal reflux disease) Hyperlipidemia Migraine Pap smear vag w ASC-US HX. of colp 1998,2000,2001 Reactive airway disease Thyroiditis (04/25/15) Surgical History Cholecystectomy (12/03/16) History of sinus surgery Luis F Fundoplication Ruddy Manzano-2006 Sinus repair 2005; dr. srivastava Family History Mother Essential hypertension Depression Hyperlipidemia Father Diabetes Essential hypertension Personal history of malignant neoplasm KIDNEY/UPPER GI Depression Heart disease Hyperlipidemia Stroke Sister No problems noted. Brother Depression Hyperlipidemia Brother Essential hypertension Depression Hyperlipidemia Asthma Grandfather Essential hypertension Heart disease Stroke Grandfather Diabetes Depression Grandmother Personal history of malignant neoplasm SKIN Depression Heart disease Stroke Grandmother Diabetes Heart disease Stroke Son Depression Asthma Daughter No problems noted. Social History Smoking/Tobacco Use Status: Never Smoking risk assessment performed?: Yes Alcohol Intake: current Alcohol Intake frequency: a few times a month Drug use: Never Substance use type: does not use current occupation: Owns a daycare Do you feel safe at home: Yes Do you feel safe in your relationship?: Yes
[2021-09-29] MEDS: Colchicine 0.6 MG TAB PO (10:37)
[2021-10-01 14:37] LABS: ANA Interpretation Positive (Negative); ANA Titer Pattern 1:80 Homogeneous
== END 2021-09-29 12:25 | disposition home or self-care (01) ==
PROVIDERS: Admitting Provider Family Medicine; PCP Nurse Practitioner Family; Visit Provider Family Medicine
DX: L52 Erythema nodosum (principal); E78.5 Hyperlipidemia, unspecified; J45.909 Unspecified asthma, uncomplicated; K52.9 Noninfective gastroenteritis and colitis, unspecified; K60.2 Anal fissure, unspecified; K62.89 Other specified diseases of anus and rectum; Z20.822 Contact with and (suspected) exposure to COVID-19
CPT/HCPCS: 36415; 80053; 87635; 96374; 96376; 71046; 84443; 85025; 86038; 86140; 99217; 99219; G0378

== ENCOUNTER 2021-10-08 03:31 | Outpatient (CLI) | payer MEDICAID, SELFPAY ==
[2021-10-08 16:15] LABS: Abs Immature Grans 0.05 10^3/uL (0.0-0.06); Absolute Basophil Count 0.03 10^3/uL (0.0-0.2); Absolute Eosinophil Count 0.08 10^3/uL (0.0-0.7); Absolute Monocyte Count 0.63 10^3/uL (0.1-0.8); Absolute Neutrophil Count 4.05 10^3/uL (1.2-6.7); Basophils % 0.4; Eosinophils % 1.1; HCT 40.8 % (36.0-46.0); HGB 13.4 g/dL (11.2-15.7); Immature Grans % 0.7; Lymphocytes % 34.1; MCH 30.3 pg (27.0-33.0); MCHC 32.8 % (32.0-36.0); MCV 92 fL (80-95); MPV 9.9 fL (8.0-11.0); Monocytes % 8.6; Neutrophils % 55.1; Platelet Count 281 10^3/uL (130-400); RBC 4.42 10^6/uL (3.93-5.22); RDW 12.3 % (11.7-14.6); RDW-SD 42.1 fL; WBC 7.34 10^3/uL (4.4-10.8)
[2021-10-08 16:22] LABS: ESR 28 mm/hr (0-20)
[2021-10-08 17:09] LABS: ALT 44 U/L (14-59); AST 10 U/L (15-37); Albumin 3.6 g/dL (3.4-5.0); Alkaline Phosphatase 95 U/L (46-116); Anion Gap 9.4 mmol/L (3-11); BUN 20 mg/dL (7-18); Bilirubin, Total 0.3 mg/dL (0.2-1.0); CO2 25.6 mmol/L (21.0-32.0); CREATININE 0.9 mg/dL (0.55-1.02); Calcium 8.6 mg/dL (8.5-10.1); Calculated LDL 201 mg/dL (<100); Chloride 104 mmol/L (98-107); Cholesterol 283 mg/dL (<200); Glucose 79 mg/dL (74-106); HDL Cholesterol 35 mg/dL (40-60); Potassium 3.3 mmol/L (3.5-5.1); Sodium 139 mmol/L (136-145); Total Protein 7.5 g/dL (6.4-8.2); Triglyceride 238 mg/dL (<150)
[2021-10-08 18:41] LABS: C-Reactive Protein 0.16 mg/dL (0.0-0.3)
[2021-10-10 09:35] LABS: Hepatitis B Surface Ag Negative (Negative)
[2021-10-10 10:18] LABS: HIV-1/2 Ag & Ab Screen Negative (Negative)
[2021-10-10 10:26] LABS: Hepatitis C Ab w Rflx HCV PCR Negative (Negative)
[2021-10-10 11:10] LABS: Lyme Ab w Rflx to Lyme Confirm Negative (Negative)
[2021-10-10 13:02] LABS: TB Interpretation Negative (Negative)
[2021-10-10 19:44] LABS: Myeloperoxidase Ab IgG <0.2 U; Proteinase 3 Ab (PR3) <0.2 U
[2021-10-11 13:50] LABS: Angiotensin Converting Enzyme 39 U/L (16 - 85)
[2021-10-12 09:58] LABS: Antistrep-O Titer 193 IU/mL (0 - 530)
[2021-10-16 12:50] LABS: LA Cascade Summary (See Note); Silica Clotting Time 43.2 secs (30.2-48.4)
== END 2021-10-08 03:32 | disposition home or self-care (01) ==
LOC: LBO 03:33
PROVIDERS: Family Medicine; Physical Therapy Assistant; PCP Nurse Practitioner Family; Visit Provider Nurse Practitioner Family
DX: I10 Essential (primary) hypertension (principal); E78.5 Hyperlipidemia, unspecified; R21 Rash and other nonspecific skin eruption; L52 Erythema nodosum; R70.0 Elevated erythrocyte sedimentation rate; R93.89 Abnormal findings on diagnostic imaging of other specified body structures; Z11.59 Encounter for screening for other viral diseases; Z11.4 Encounter for screening for human immunodeficiency virus [HIV]
CPT/HCPCS: 36415; 80053; 80061; 82164; 85652; 86803; 87116; 87340; 87389; 83516; 85025; 86060; 86140; 86480; 86618

== ENCOUNTER → 2021-10-16 01:07 | Outpatient (CLI) | payer MEDICAID, SELFPAY ==
--- NOTE | 2021-10-16 08:15 | DI.CT_ITS ---
Exam(s) CT CHEST WO EXAM: CT CHEST WO CLINICAL HISTORY: left infltrate on cxr, hilar enlarged,f/u abnl cxr,erythema nodosum. TECHNIQUE: Multi planar reconstructions were performed. CONTRAST MATERIAL: None COMPARISON: CT CHEST FOR PULMONARY EMBOLUS from 12/05/2016 FINDINGS: CHEST: LUNGS: There are 2 small pleural based adjacent nodules in the posterior aspect of the right upper lo be (series 2/image 12). Also suggestion of a 5 millimeter nodule in the right upper lobe (series 2/i mage 18). There is also a 2 millimeter calcified granuloma in the lateral aspect the right middle lo be. No other right lung findings and no pleural effusions. In the opposite-left lung there are mild increased markings in the most superior aspect of the superi or segment of the left lower lobe. There are no significant focal findings in the left upper lobe. Atelectatic markings are noted in the lingular segment of the left lung. There is a 4 millimeter ple ural based nodular density in the anterior basal segment left lower lobe. In the posterior basal seg ment the previously described infiltrates have resolved. There are presently no pleural effusions. No significant focal findings in the trachea and mainstem bronchi. No bronchiectasis. MEDIASTINUM: No obvious hilar adenopathy on this non few study. However, there is slightly increased size lymph nodes in the subcarinal region. Visualized thyroid unremarkable.No obvious axillary pooja opathy CARDIAC: Heart size is normal. There is no pericardial effusion.Caliber of the thoracic aorta is wit hin normal limits. VISUALIZED UPPER ABDOMEN:Previous cholecystectomy. No adrenal masses. OSSEOUS: No significant osseous lesions.. IMPRESSION: 1. Small nodular densities bilaterally. Recommend follow-up CT scan in 6 months. 2. There also appears to be some subcarinal adenopathy. 3. No pleural effusions. RADIATION DOSE DELIVERED: 694.62mGy.cm Total DLP DATA REPOSITORY: All CT scans at this facility are submitted to the National Radiology Data Registry (NRDR) Dose Index Registry (DIR) with the [employer] (ACR). RADIATION OPTIMIZATION: All CT scans at this facility use at least one of these dose optimization te chniques: automated exposure control; mA and/or kV adjustment per patient size (includes targeted exa ms where dose is matched to clinical indication); or iterative reconstruction.
== END ==
PROVIDERS: PCP Nurse Practitioner Family; Visit Provider Family Medicine
DX: L52 Erythema nodosum (principal); R59.0 Localized enlarged lymph nodes; J98.4 Other disorders of lung; R93.89 Abnormal findings on diagnostic imaging of other specified body structures
CPT/HCPCS: 71250

== ENCOUNTER 2021-11-09 02:07 | Outpatient (CLI) | payer MEDICAID, SELFPAY ==
[2021-11-09] MEDS: Albuterol HFA 18 GM 200 PUFF INH IH (09:03)
[2021-11-09] MEDS: Inhaler, Assist Device 1 EACH MC (09:03)
--- NOTE | 2021-11-13 18:04 | W.PFT ---
Date of service: 11/09/21 Time of Service: 08:04 Pulmonary Function Test Result Requesting Provider Duchene Indications: Azul's Syndrome Interpretation Spirometry: There is no airflow limitation. There is no significant bronchodilator response. Lung Volumes: Lung volumes are normal. Diffusion Capacity: Diffusion is normal. Airway Pressure: Normal airways resistance. Impression Normal pulmonary function testing. Clinical Correlation therefore is recommended.
== END 2021-11-09 02:08 | disposition home or self-care (01) ==
LOC: RT 02:07
PROVIDERS: PCP Nurse Practitioner Family; Visit Provider Student in an Organized Health Care Education/Training Program
DX: R06.09 Other forms of dyspnea (principal); R05.8 Other specified cough; J98.4 Other disorders of lung
CPT/HCPCS: 94060; 94726; 94729

== ENCOUNTER 2021-11-19 04:28 | Outpatient (CLI) | payer MEDICAID, SELFPAY ==
--- NOTE | 2021-11-19 10:00 | RT.EKG_ITS ---
APPROVED REPORT Exam: Resting ECG Reason for Exam: assess for heart block Patient Location: O HR:89 bpm ECG Measurements Heart Rate 89 AXIS ID 156 P 52 QRSd 88 QRS 10 QT 354 T 20 QTc 431 Conclusion Sinus rhythm...normal P axis, V-rate 50- 99 Probable left atrial enlargement...P Low voltage, precordial leads...precordial leads <1.0mV
== END 2021-11-19 04:29 | disposition home or self-care (01) ==
LOC: RT 04:28
PROVIDERS: PCP Nurse Practitioner Family; Visit Provider Student in an Organized Health Care Education/Training Program
DX: D86.0 Sarcoidosis of lung; I51.7 Cardiomegaly
CPT/HCPCS: 93005; 93010

== ENCOUNTER → 2022-02-07 03:05 | Outpatient (CLI) | payer MEDICAID, SELFPAY ==
--- NOTE | 2022-02-07 08:30 | DI.CT_ITS ---
Exam(s) CT CHEST WO EXAM: CT CHEST WO CLINICAL HISTORY: f/u pulmonary nodules,r91.8. TECHNIQUE: Imaging protocol: Axial computed tomography images were obtained and coronal and sagittal reformatted images were created and reviewed. COMPARISON: CT CT CHEST WO from 10/16/2021 FINDINGS: Tracheobronchial tree: Patent where visualized. Pulmonary parenchyma: No consolidation or dominant measurable mass. There is a calcified granuloma in the right middle lobe. There is a 3 mm noncalcified pulmonary nodule in the right lower lobe. This i s stable. The 3 mm pleural based nodule in the left lower lobe is stable. The 2 pleural based nodules in the posterior aspect of the right upper lobe are stable. The 4 mm nodule in the right upper lobe is stable. No new pulmonary nodules are present. Mediastinum and Dominique: No dominant adenopathy or fluid collection. The esophagus is unremarkable. Thyroid gland: Unremarkable. Pleura: No effusion or pneumothorax. Heart: The heart is not dilated. No coronary artery calcifications are seen. No pericardial effusion. Aorta: Thoracic aorta non-dilated. Upper abdomen: Status post cholecystectomy. Lymph nodes: Within normal limits. Soft tissues: Unremarkable. Bones:Within normal limits for the patient's age. IMPRESSION: Stable pulmonary nodules. For multiple solid noncalcified nodules smaller than 6 mm in diameter, no r outine follow-up is recommended. (Sj et al., 2017). Please correlate with the patient's risk fac tors (history of smoking or other risk factors). RADIATION DOSE DELIVERED: 725.31mGy.cm Total DLP 725.31mGy.cm Total DLP DATA REPOSITORY: All CT scans at this facility are submitted to the National Radiology Data Registry (NRDR) Dose Index Registry (DIR) with the [employer] (ACR). RADIATION OPTIMIZATION: All CT scans at this facility use at least one of these dose optimization te chniques: automated exposure control; mA and/or kV adjustment per patient size (includes targeted exa ms where dose is matched to clinical indication); or iterative reconstruction.
--- NOTE | 2022-02-07 14:03 | DI.US_ITS ---
APPROVED REPORT EXAM: Comprehensive 2D, Doppler, and color-flow Echocardiogram Patient Location: Out-Patient Duck Farmer: Minna Santana RDCS (AE) Indications: Palpitations, Chest pain, Azul's syndrome Other Information Study Quality: Good Conclusion Normal left ventricular wall thickness and chamber size. Estimated ejection fraction is 60%. Wall m otion is normal Normal right ventricular size and systolic function Both atria are normal in size There is no structural or hemodynamically significant valvular disease Wall motion Left Ventricle The left ventricle is normal size. The left ventricular systolic function is normal. The left ventric ular ejection fraction is within the normal range. There is normal left ventricular wall thickness. T here is normal LV segmental wall motion. There is no ventricular septal defect visualized. LVEF is 60 %. Right Ventricle The right ventricle is normal size. The right ventricular systolic function is normal. Atria The left atrium size is normal. The right atrium size is normal. The interatrial septum is intact wit h no evidence for an atrial septal defect. Aortic Valve The aortic valve is normal in structure. Aortic valve is trileaflet. There is no aortic valvular sten osis. No aortic regurgitation is present. Mitral Valve The mitral valve is normal in structure. No evidence of mitral valve stenosis. Trace to mild mitral r egurgitation. Tricuspid Valve The tricuspid valve is normal in structure. There is no tricuspid valve stenosis. Trace tricuspid reg urgitation. Unable to assess PA pressure. Pulmonic Valve The pulmonary valve is normal in structure. There is no pulmonic valvular stenosis. There is no pulmo bill valvular regurgitation. Great Vessels The aortic root is normal in size. The ascending aorta is normal in size. Aortic arch is normal in ca liber. IVC is normal in size and collapses >50% with inspiration. Pericardium There is no pericardial effusion. 2D Dimensions IVSD d PLAX 0.92 cm F: 0.6-1.0 LV Vol A2C d MOD 131.8 mL LVPW d PLAX 0.91 cm F: 0.6 - 1.0 LV Vol A4C d MOD 89.5 mL LVID d PLAX 4.30 cm F: 3.8 - 5.2 LA vol/ BSA A2C s A-L 26.6 mL/m2 LVDs 2.95 cm F: 2.2 - 3.5 LA vol/ BSA A4C s A-L 21.2 mL/m2 Ao Root d 2.67 cm F: 2.7 - 3.3 LA Vol/ BSA Biplane s A-L 24.1 mL/m2 RA Area A4C 13.99 cm2 LA Area A4C s MOD 17.24 cm2 RA Vol/ BSA A4C s A-L 15.5 mL/m2 LA Area A2C s MOD 18.97 cm2 Ao Asc Diam d 2.87 cm F: 2.3 - 3.1 LV EF A4C MOD 60.5 % LV EF Teichholz 58.0 % LV EF A2C MOD 59.5 % LVEF (Langley's) 59.38 % F: 54 - 74 LV EF Biplane MOD 59.4 % LV Volume 83.26 mL F: 46 - 106 SV 66.48 mL LV Volume Index 40.61 mL/m2 F: 29 - 61 SV Index 32.40 mL/m2 LV Vol Biplane MOD 112.0 mL FS 30.30 % M-Mode TAPSE 2.41 cm (M/F) >1.7 LV Diastology MV E' medial 0.079 (>0.07 m/s) E/A Ratio 1.0 LV E/e MED 9.50 (<14) MV E Vmax 0.75 (0.4-1.3 m/s) MV E' lateral 0.110 (>0.1 m/s) MV A Vmax 0.75 (0.4-1.3 m/s) LV E/e LAT 6.85 (<14) MV E/A Ratio 0.94 MV E/E' medial 9.53 MV E/E' lateral 6.86 Aortic Valve LVOT Area 3.35 cm2 AoV Area Vmax 2.84 cm2 LVOT Vmax 1.10 m/s AoV Area/ BSA (Vmax) 1.39 cm2/m2 LVOT Mean Nawaf. 0.75 m/s CHELA Mean Nawaf. 2.62 cm2 LVOT Peak Grad 4.9 mmHg CHELA Mean Nawaf. Index 1.28 cm2/m2 LVOT Mean Grad 2.6 mmHg LVOT VTI 0.226 m LVOT Diam s 2.05 cm AoV Vmax 1.30 m/s Velocity Ratio 0.84 AoV Mean Nawaf. 0.96 m/s AoV Peak Grad 6.8 mmHg LVOT SV 75.73 mL AoV Mean Grad 4.0 mmHg AoV VTI 0.267 m AoV Area VTI 2.83 cm2 AoV Area/ BSA (VTI) 1.38 cm/m2 Mitral Valve MV DT 222 (160-240 msec) MV PHT 64 msec MV Area PHT 3.41 cm2 MV VTI 0.235 m MV Area VTI 3.23 (4.0-6.0 cm2) Pulmonary Valve PV Vmax 0.92 (0.5-1.5 m/s) RVOT Peak Gr. 2.36 mmHg PV Peak Grad 3.4 mmHg RVOT Mean Gr. 1.15 mmHg PV Mean Grad 1.8 mmHg RVOT VTI 0.162 m PV VTI 0.217 m RVOT Vmax 0.77 m/s
== END ==
PROVIDERS: PCP Nurse Practitioner Family; Visit Provider Student in an Organized Health Care Education/Training Program
DX: R91.8 Other nonspecific abnormal finding of lung field (principal); D86.9 Sarcoidosis, unspecified
CPT/HCPCS: 71250; 93306

== ENCOUNTER 2022-07-15 01:55 | Outpatient (CLI) | payer MEDICAID, SELFPAY ==
--- NOTE | 2022-07-15 08:00 | DI.MAMMO_ITS ---
Exam(s) MAMMO SCREENING EXAM: MAMMO SCREENING CLINICAL HISTORY: screening,Z12.39. TECHNIQUE: Bilateral full field digital CC and MLO mammographic images were obtained with 3D tomosyn thesis and utilizing computer aided detection (CAD). COMPARISON: None. This is a baseline mammogram on this 42-year-old patient. FINDINGS: The fibroglandular tissue pattern is moderately dense. There are no obvious spiculated masses nor malignant appearing microcalcification groups. There is a small benign-appearing microcalcification group in the right breast posteriorly, medial of center. There is no significant architectural distortion nor skin thickening-retraction. IMPRESSION: Benign findings. No radiographic evidence of malignancy. BI-RADS Category 2 - Benign Findings Breast Density - Category C - Heterogeneously dense Breast density Category C or D implies that the patient has dense breast tissue. Dense breast tissue can make it harder to find cancer on a mammogram. Dense breast tissue is also associated with an incr eased risk of breast cancer. This information about the result of the mammogram report was provided to the patient to raise their awareness. Use this report when you speak with the patient about their risks for breast cancer, which includes their family history. At that time, you may recommend additional screening tests (Ultrasoun d or MRI) as these tests may add significant information. A negative radiographic report should not delay biopsy if a dominant or clinically suspicious mass is present. Up to ten percent of cancers are not identified on mammography. A negative report may reinforce clinical impression. Adenosis and dense breasts may obscure an underlying neoplasm. False positive reports average 6 to 10%. Patient will receive a letter notifying them of these results.
== END 2022-07-15 02:15 ==
LOC: DI 01:55
PROVIDERS: PCP Nurse Practitioner Family; Visit Provider Nurse Practitioner Family
DX: Z12.31 Encounter for screening mammogram for malignant neoplasm of breast (principal); R92.0 Mammographic microcalcification found on diagnostic imaging of breast
CPT/HCPCS: 77063; 77067

== ENCOUNTER 2022-07-25 13:43 | Outpatient (CLI) | payer MEDICAID, SELFPAY ==
--- NOTE | 2022-07-25 12:00 | DI.RAD_ITS ---
Exam(s) XR ANKLE RT COMPLETE EXAM: XR ANKLE RT COMPLETE CLINICAL HISTORY: right ankle pain x 4 months, rt achilles tendinitis, M76.61. TECHNIQUE: 2D digital imaging was performed. Three views. COMPARISON: CR LEFT ANKLE COMPLETE from 06/08/2013 FINDINGS: BONES: No acute fracture is present. No bony destructive lesion is seen. JOINTS: The ankle mortise is normally aligned. SOFT TISSUE: Normal. IMPRESSION: Unremarkable radiographs of the right ankle. DATA REPOSITORY: RADIATION DOSE DELIVERED:
== END 2022-07-25 14:03 ==
LOC: DI 13:44
PROVIDERS: PCP Nurse Practitioner Family; Visit Provider Family Medicine
DX: M76.61 Achilles tendinitis, right leg (principal); M25.571 Pain in right ankle and joints of right foot
CPT/HCPCS: 73610

== ENCOUNTER 2022-08-02 02:06 | Outpatient (CLI) | payer MEDICAID, SELFPAY ==
--- OUTSIDE RECORDS SUMMARY | 2022-08-02 02:07 | XMS_ITS ---
Author Name Thiago Srivastava Address [address] [place], [place] [id number] Organization [facility] Address [address], [place] [id number] Care Team Providers Care Dining Room Captain Name Role Phone Thiago Srivastava Unavailable [phone] PROBLEMS Type Condition ICD9-CM Code YGO99-PS Code Onset Dates Condition Status SNOMED Code Problem Allergic rhinitis due to allergen 477.8 Active 03198456 Problem Chronic maxillary sinusitis J32.0 Active 74147042 Problem Acute non-recurrent streptococcal tonsillitis J03.00 Active 87949346 Problem Chronic sinusitis NOS 473.9 Active 00475142 Problem Chronic tonsillitis and adenoiditis 474.02 Active 287315778 Problem Acute sinusitis 461.9 Active 74545203 Problem Body mass index (BMI) of 40.1 to 44.9 in adult Z68.41 Active 621734902 ALLERGIES Substance Reaction Event Type Date Status surgical prep solution blister and rash Non Drug Allergy 1 2 Nov, 2019 Active Reglan Unknown Drug Allergy Nov, Active ENCOUNTERS Encounter Location Date Diagnosis N E [facility] [address], [address] [place], [place] [id number] Dec, [facility] [address] [facility] [address] [place], [place] [id number] Nov, Acute non-recurrent streptococcal tonsillitis J03.[address] [place], [place] [id number] Jun, [address] [id number] Apr, Encounter for routine follow-up Z39.2 ; Encounter for initial prescription of intrauterine contraceptive device (IUD) Z30.014 and Body mass index (BMI) of 40.1 to 44.9 in adult Z68.[address] [place], [place] [id number] Apr, [facility] [address] [place] [address] [address] [place], [place] [id number] Mar, Chronic maxillary sinusitis J32.[address] [id number] Mar, [address] [id number] Mar, Acute sinusitis, recurrence not specified, unspecified location J01.[address] [id number] Mar, 2 weeks follow-up Z39.2 and Pharyngitis, unspecified etiology J02.[address] [id number] Feb, Encounter for supervision of other normal , third trimester Z34.83 ; 39 weeks gestation of Z3A.39 ; Body mass index (BMI) of 40.1 to 44.9 in adult Z68.41 and Decreased movements in third trimester, single or unspecified fetus O36.[address] [id number] Feb, Supervision of elderly multigravida in third trimester O09.523 ; 38 weeks gestation of Z3A.38 ; Body mass index (BMI) of 40.1 to 44.9 in adult Z68.41 and Viral upper respiratory tract infection J06.[address] [id number] Feb, [address] [id number] Feb, Supervision of elderly multigravida in third trimester O09.523 ; 37 weeks gestation of Z3A.37 and Body mass index (BMI) of 40.1 to 44.9 in adult Z68.[address] [id number] Feb, Supervision of elderly multigravida in third trimester O09.523 ; 36 weeks gestation of Z3A.36 ; Encounter for screening Z36.9 and Encounter for immunization Z23 [address] [id number] Jan, Supervision of elderly multigravida in third trimester O09.[address] [id number] Jan, Supervision of elderly multigravida in third trimester O09.523 and 32 weeks gestation of Z3A.[address] [id number] Jan, [address] [id number] Dec, [address] [id number] Dec, [address] [id number] Dec, Supervision of elderly multigravida in third trimester O09.523 ; 29 weeks gestation of Z3A.29 ; BMI 40.0-44.9, adult Z68.41 and Encounter for administration of vaccine Z23 [address] [id number] Nov, [address] [id number] Nov, Encounter for supervision of elderly multigravida in second trimester, antepartum O09.522 ; 26 weeks gestation of Z3A.26 ; Elevated glucose level R73.09 and Body mass index (BMI) of 40.1 to 44.9 in adult Z68.[address] [id number] Nov, [address] [id number] Oct, Encounter for supervision of elderly multigravida in second trimester, antepartum O09.522 and 21 weeks gestation of Z3A.[address] [id number] Oct, Encounter for supervision of elderly multigravida in second trimester, antepartum O09.[address] [id number] Oct, [address] [id number] Sep, Encounter for supervision of elderly multigravida in second trimester, antepartum O09.[address] [id number] Sep, Encounter for supervision of elderly multigravida in second trimester, antepartum O09.522 ; 15 weeks gestation of Z3A.15 ; Nausea R11.0 ; Acute right-sided low back pain without sciatica M54.5 and Lethargy R53.[address] [id number] August, Encounter for supervision of elderly multigravida in second trimester, antepartum O09.[address] [id number] August, Antepartum elderly multigravida in first trimester O09.521 ; Nausea R11.0 ; Encounter for supervision of elderly multigravida in second trimester, antepartum O09.522 ; 15 weeks gestation of Z3A.15 ; Acute right-sided low back pain without sciatica M54.5 and Lethargy R53.[address] [id number] Jul, Gastroenteritis K52.9 ; Nausea and vomiting during O21.9 ; 9 weeks gestation of Z3A.09 and Multigravida of advanced maternal age in first trimester O09.[address] [id number] Jul, Threatened affecting intrauterine O20.0 and History of miscarriage, currently O09.[address] [id number] Jul, Threatened O20.0 [facility] [address] [place], [place] [id number] Mar, [facility] [address] [facility] [address] [place], [place] [id number] Mar, Missed O02.1 [facility] [address] [facility] [address] [place], [place] [id number] Mar, [facility] [address] [facility] [address] [place], [place] [id number] Mar, confirmed by positive urine test Z32.01 ; Pelvic pressure in female R10.2 ; Encounter for screening for malignant neoplasm of cervix Z12.4 ; Encounter for screening for infections with predominantly sexual mode of transmission Z11.3 and Multigravida of advanced maternal age in first trimester O09.521 [facility] [address] [facility] [address] [place] [id number] Feb, [facility] [address] [facility] [address] [place], [place] [id number] May, [facility] Jacqu[place]Walter [address], [address] [id number] Dec, Acute pharyngitis 462 [facility] [address] [facility] [address] [place], [place] [id number] Oct, Acute sinusitis 461.9 [facility] [address] [facility] [address] [place], [place] [id number] Sep, [facility] [address] [facility] [address] [place], [place] [id number] August, ALLERGIC RHINITIS NEC 477.8 [facility] [address] [facility] [address] [place], [place] [id number] August, [facility] [address] [facility] [address] [place], [place] [id number] August, Allergic rhinitis due to allergen 477.8 [facility] [address] [facility] [address] [place], [place] [id number] August, Allergic rhinitis due to allergen 477.8 [facility] [address] [facility] [address] [place], [place] [id number] Jul, Acute sinusitis 461.9 [facility] [address] [facility] [address] [place], [place] [id number] Jul, Allergic rhinitis due to allergen 477.8 [facility] [address] [facility] [address] [place], [place] [id number] Jul, Allergic rhinitis due to allergen 477.8 [facility] [address] [facility] [address] [place], [place] [id number] Jul, [facility] [address] [facility] [address] [place], [place] [id number] May, ALLERGIC RHINITIS NOS 477.9 [facility] [address] [facility] [address] [place], [place] [id number] May, Allergic rhinitis due to allergen 477.8 [facility] [address] [facility] [address] [place], [place] [id number] May, Allergic rhinitis due to allergen 477.8 [facility] [address] [facility] [address] [place], [place] [id number] Apr, ALLERGIC RHINITIS NOS 477.9 and Postnasal drip 784.91 [facility] [address] [facility] [address] [place], [place] [id number] Dec, Allergic rhinitis due to allergen 477.8 [facility] [address] [facility] [address] [place], [place] [id number] Sep, Chronic tonsillitis and adenoiditis 474.02 and Allergic rhinitis due to allergen 477.8 [facility] [address] [place], [place] [id number] August, Chronic tonsillitis and adenoiditis 474.02 [facility] [address] [facility] [address] [place], [place] [id number] August, Chronic tonsillitis and adenoiditis 474.02 ; Chronic sinusitis NOS 473.9 and Allergic rhinitis due to allergen 477.8 IMMUNIZATIONS Vaccine Route Administration Date Status CHARIS - Flu VACC 6 MONTHS > IM Intramuscular Feb 16 9 Administered Tdap - Adult IM Intramuscular Dec 29, 2018 Administer ed SOCIAL HISTORY Never Assessed REASON FOR REFERRAL FUNCTIONAL STATUS PLAN OF CARE Activity Details VITAL SIGNS Height 64 in 2019-11-24 Height 64 in 2019-05-11 Height 64 in 2019-04-13 Height 64 in 2019-03-02 Height 64 in 2019-02-24 Height 64 in 2019-01-13 Height 64 in 2018-12-29 Height 64 in 2018-12-04 Height 64 in 2018-11-06 Height 64 in 2018-09-18 Height 64 in 2018-08-18 Height 64 in 2018-08-07 Height 64 in 2018-07-22 Height 64 in 2018-04-06 Height 64 in 2018-03-25 Height N/A in 2012-12-31 Height N/A in 2012-10-19 Height 64 in 2012-08-18 Height N/A in 2012-08-03 Height N/A in 2012-04-28 Height N/A in 2012-01-09 Height N/A in 2011-10-09 Height 64 in 2011-08-29 Weight 230 lbs 2019-11-24 Weight 233 lb 6 oz lbs 2019-05-11 Weight 215 lbs 2019-04-13 Weight 251.4 lbs 2019-03-09 Weight 248.8 lbs 2019-03-02 Weight 248.4 lbs 2019-02-24 Weight 248.2 lbs 2019-02-16 Weight 243.0 lbs 2019-01-29 Weight 242.0 lbs 2019-01-13 Weight 243 lb 0 oz lbs 2018-12-29 Weight 242 lb 4 oz lbs 2018-12-04 Weight 246 lb 6 oz lbs 2018-11-06 Weight 241.2 lbs 2018-10-09 Weight 241.2 lbs 2018-09-18 Weight 240.4 lbs 2018-09-04 Weight 241.8 lbs 2018-08-18 Weight 240.2 lbs 2018-08-07 Weight 241.2 lbs 2018-07-22 Weight 232.6 lbs 2018-04-06 Weight 238 lb 0 oz lbs 2018-03-25 Weight 205 lbs 2012-12-31 Weight 204 lbs 2012-10-19 Weight 202 lbs 2012-08-03 Weight 210 lbs 2012-04-28 Weight 200 lbs 2012-01-09 Weight 225 lbs 2011-10-09 Weight 218 lbs 2011-08-29 Temperature Tympanic:99.1 degrees Fahrenheit 2019-03-02 Temperature Tympanic:98.3 degrees Fahrenheit 2019-01-13 Temperature Tympanic:99.0 degrees Fahrenheit 2018-11-06 Temperature Tympanic:99.3 degrees Fahrenheit 2018-08-07 Heart Rate 84 /min 2019-11-24 Heart Rate 89 /min 2019-04-13 Heart Rate 82 /min 2012-12-31 Heart Rate 83 /min 2012-10-19 Heart Rate 88 /min 2012-08-18 Heart Rate 103 /min 2012-08-03 Heart Rate 101 /min 2012-04-28 Heart Rate 80 /min 2012-01-09 Heart Rate 88 /min 2011-10-09 Heart Rate 60 /min 2011-08-29 Oximetry 98 2019-11-24 Oximetry 97 2019-04-13 Respiratory Rate 16 /min 2012-08-18 Respiratory Rate 16 /min 2012-04-28 Respiratory Rate 16 /min 2012-01-09 Respiratory Rate 16 /min 2011-10-09 Respiratory Rate 16 /min 2011-08-29 BMI 39.48 kg/m2 2019-11-24 BMI 40.05 kg/m2 2019-05-11 BMI 36.90 kg/m2 2019-04-13 BMI 42.706 kg/m2 2019-03-02 BMI 42.638 kg/m2 2019-02-24 BMI 41.539 kg/m2 2019-01-13 BMI 41.71 kg/m2 2018-12-29 BMI 41.58 kg/m2 2018-12-04 BMI 42.29 kg/m2 2018-11-06 BMI 41.402 kg/m2 2018-09-18 BMI 41.505 kg/m2 2018-08-18 BMI 41.23 kg/m2 2018-08-07 BMI 41.40 kg/m2 2018-07-22 BMI 39.92 kg/m2 2018-04-06 BMI 40.85 kg/m2 2018-03-25 BMI 35.18 kg/m2 2012-12-31 BMI 35.01 kg/m2 2012-10-19 BMI 34.67 kg/m2 2012-08-03 BMI 36.04 kg/m2 2012-04-28 BMI 34.33 kg/m2 2012-01-09 BMI 38.62 kg/m2 2011-10-09 BMI 37.42 kg/m2 2011-08-29 Blood pressure systolic 114 mm Hg Blood pressure diastolic 74 mm Hg 2019-11 MEDICATIONS Medication Instructions Dosage Frequency Start Date End Date Duration Status Sudafed 30 MG Orally every 6 hrs 2 tablets as needed 6h Unknown Tylenol Extra Strength 500 MG Orally every 6 hrs 1 tablet as needed 6h Unknown Unisom p.o. daily as needed as directed Unknown Amoxicillin 250 MG Orally every 12 hrs 2 capsules 12h 10 day(s) Unknown PROCEDURES Procedure Date Ordered Result Body Site IUD INSERTION May 11, 2019 INTRADERMAL TESTS September 11, 2012 URINE TEST July 22, 2018 CARE VISIT Mar 24, 2019 REMOVE TONSILS AND ADENOIDS, AGE 12+ YRS September 12, 2011 INTRADERMAL TESTS May 29, 2012 SUBSEQUENT CARE Mar 09, 2019 URINE TEST Mar 25, 2018 PATIENT RECORDED SPIROMETRY May 19, 2012 SUBSEQUENT CARE Mar 02, 2019 ALLERGY INJ MULT July 31, 2012 ALLERGY INJ MULT August 18, 2012 ALLERGY INJ MULT July 21, 2012 SUBSEQUENT CARE September 04, 2018 ALLERGY INJ MULT August 14, 2012 SUBSEQUENT CARE Jan 13, 2019 SUBSEQUENT CARE September 18, 2018 SUBSEQUENT CARE Jan 29, 2019 SUBSEQUENT CARE Feb 16, 2019 SUBSEQUENT CARE Dec 04, 2018 SUBSEQUENT CARE Dec 29, 2018 SUBSEQUENT CARE Feb 24, 2019 INITIAL CARE VISIT August 18, 2018 Tdap - Adult Dec 29, 2018 URINALYSIS NONAUTO W/O SCOPE Mar 25, 2018 SUBSEQUENT CARE October 09, 2018 PRICK TESTS May 19, 2012 ALLERGY INJ MULT May 29, 2012 CARE VISIT May 11, 2019 IMMUNIZATION ADMINISTRATION Dec 29, 2018 M ANTIGEN THERAPY SERV (1ml=1unit) August 27, 2012 LNG-RELEASING IUC SYS 52MG 5 YR DUR May 11, 2019 INTRADERMAL TESTS August 31, 2012 CHARIS - Flu VACC 6 MONTHS > Feb 16, 2019 INTRADERMAL TESTS May 19, 2012 SUBSEQUENT CARE November 06, 2018 M ANTIGEN THERAPY SERV (1ml=1unit) May 27, 2012 IMMUNIZATION ADMINISTRATION Feb 16, 2019 RESULTS Name Result Date Reference Range HEMOGLOBIN/HEMATOCRIT 2019-03-11 HGB 11.0 12.0-16.0 HCT 32.8 37.0-47.0 CBC, WITH AUTO DIFF 2019-03-10 WBC 6.1 4.8-10.8 RBC 3.99 4.20-5.40 HGB 11.8 12.0-16.0 HCT 35.6 37.0-47.0 MCV 89.2 81.0-99.0 MCH 29.6 27.0-31.0 MCHC 33.1 32.0-37.0 RDW-CV 13.4 11.5-14.5 PLT 172 130-400 MPV 12.9 7.4-10.4 NE% 66.0 42.2-75.2 LY% 27.6 20.5-51.1 MO% 5.4 1.7-9.3 EO% 0.3 0.9-2.9 BA% 0.2 0.0-0.8 NE# 4.0 1.4-6.5 LY# 1.7 1.2-3.4 MO# 0.3 0.1-0.6 EO# 0.0 0.0-0.2 BA# 0.0 0.0-0.2 TYPE AND SCREEN 2019-03-10 ABORh O POSITIVE ANTIBODY SCREEN NEGATIVE NEGATIVE TS COMM Pre-op Type & Screen specimens are valid for 7 days. If the patient has been transfused or been within the past 3 months, the specimen is only valid for 3 days. SYPHILIS 2019-03-10 SYPHILIS NON-REACTIVE NON-REACTIVE URINE DIP ([facility]) 2019-03-09 Color Clarity Glucose negative Bilirubin Ketones Specific [place]im Blood PH Protein 1+ Uro Nitrates Leukocytes URINE DIP ([facility]) Color Clarity Glucose negative Bilirubin Ketones Specific [place] Blood PH Protein 1+ Uro Nitrates Leukocytes URINE DIP ([facility]) 2019-02-24 Color Clarity Glucose negative Bilirubin Ketones Specific [place] Blood PH Protein trace Uro Nitrates Leukocytes URINE DIP ([facility]) Color Clarity Glucose negative Bilirubin Ketones Specific [place] Blood PH Protein trace Uro Nitrates Leukocytes GROUP-B STREP SCREEN - RAPID PCR 2019-02-16 Group B Strep by PCR NEGATIVE NEGATIV E URINE DIP ([facility]) 2019-01-29 Color Clarity Glucose negative Bilirubin Ketones Specific [place] Blood PH Protein trace Uro Nitrates Leukocytes URINE DIP ([facility]) 2019-01-13 Color Selena Clarity clear Glucose negative Bilirubin negative Ketones small Specific [place]im 1.020 Blood negative PH 5 Protein negative Uro negative Nitrates negative Leukocytes trace URINE DIP ([facility]) 2018-12-29 Color Clarity Glucose 50 Bilirubin Ketones Specific [place] Blood PH Protein trace Uro Nitrates Leukocytes CBC, WITH AUTO DIFF 2018-12-04 WBC 6.3 4.8-10.8 RBC 3.84 4.20-5.40 HGB 12.2 12.0-16.0 HCT 35.3 37.0-47.0 MCV 91.9 81.0-99.0 MCH 31.8 27.0-31.0 MCHC 34.6 32.0-37.0 RDW-CV 12.7 11.5-14.5 PLT 179 130-400 MPV 11.1 7.4-10.4 NE% 71.0 42.2-75.2 LY% 23.0 20.5-51.1 MO% 4.9 1.7-9.3 EO% 0.5 0.9-2.9 BA% 0.3 0.0-0.8 NE# 4.5 1.4-6.5 LY# 1.5 1.2-3.4 MO# 0.3 0.1-0.6 EO# 0.0 0.0-0.2 BA# 0.0 0.0-0.2 URINE DIP ([facility]) 2018-12-04 Color Clarity Glucose negative Bilirubin Ketones Specific [place] Blood PH Protein trace Uro Nitrates Leukocytes GLUCOSE VIV - 3HR 2018-12-07 FASTING 92 <=95 OB 1 HOUR GLUCOSE 147 <=180 OB 2 HR GLUCOSE 126 <=155 OB 3 HR GLUCOSE 73 <=140 GLUCOSE VIV GESTATIONAL(50GM) 2018-12-04 GLUCOSE - 1 HR POST 145 <=135 URINE DIP ([facility]) 2018-11-06 Color Clarity Glucose negative Bilirubin Ketones Specific [place]im Blood PH Protein trace Uro Nitrates Leukocytes SPECIMEN VARIANCE 2018-10-28 SPECIMEN VARIANCE SPECIMEN VARIANCE REPORT TEST CANCELLED AFP QUAD SCREEN CULTURE STREP GR A 2018-10-12 STREP SCREEN GR A with REFLE X CULTURE 2018-10-12 STREP A Ag NEGATIVE NEGATIVE URINE DIP ([facility]) Color Clarity Glucose negative Bilirubin Ketones 2+ Specific [place]im Blood PH Protein negative Uro Nitrates Leukocytes TSH 2018-10-09 TSH 1.24 0.45-5.33 GLYCOHEMOGLOBIN A1C 2018-10-09 HGBA1c 5.1 4.0-6.0 est Average Glucose 100 70-105 CBC, WITH AUTO DIFF 2018-10-09 WBC 7.4 4.8-10.8 RBC 4.41 4.20-5.40 HGB 13.8 12.0-16.0 HCT 40.0 37.0-47.0 MCV 90.7 81.0-99.0 MCH 31.3 27.0-31.0 MCHC 34.5 32.0-37.0 RDW-CV 13.1 11.5-14.5 PLT 201 130-400 MPV 11.0 7.4-10.4 NE% 70.6 42.2-75.2 LY% 22.9 20.5-51.1 EO% 0.3 0.9-2.9 BA% 0.1 0.0-0.8 NE# 5.2 1.4-6.5 LY# 1.7 1.2-3.4 MO# 0.4 0.1-0.6 EO# 0.0 0.0-0.2 BA# 0.0 0.0-0.2 COMPREHENSIVE METABOLIC PROFILE 2018-09-13 8 SODIUM 139 136-145 POTASSIUM 3.8 3.5-5.1 CHLORIDE 109 98-111 CO2 20 22-32 CALCIUM 9.3 8.9-10.3 BUN 7 8-26 CREATININE 0.48 0.44-1.00 TOTAL BILIRUBIN 0.6 0.3-1.2 TOTAL PROTEIN 6.6 6.5-8.1 ALBUMIN 3.6 3.5-5.0 ALKALINE PHOS 71 32-92 AST 28 15-41 ALT 41 14-54 A/GAP 10.0 3.0-12.0 B/CR 14.6 8.0-20.0 OSMOLARITY 274 275-295 GLOBULIN 3.0 2.3-3.5 A/G 1.2 1.0-2.5 KETONES, SERUM 2018-10-09 HEPATITIS B SURFACE ANTIGEN, 2018-10-09 HEP B SURFACE AG NON-REACTIVE NON-REACTIV E RUBELLA IGG ANTIBODY 2018-10-09 RUBELLA >500.0 >=10.0 RUB HEAD REFERENCE RANGE: (IU /mL) <5.0 : NON-IMMUNE 5.0 - 9.9 : OLIVAREZ ZONE >= 10.0 : IMMUNE TYPE AND SCREEN, 2018-10-09 ABORh O POSITIVE ANTIBODY SCREEN NEGATIVE NEGATIVE TS COMM Pre-op Type & Screen specimens are valid for 7 days. If the patient has been transfused or been within the past 3 months, the specimen is only valid for 3 days. HIV12P 2018-10-09 HIV1/O/2 Abs,P24Ag NON-REACTIVE NON-REACT [place] SYPHILIS, 2018-10-09 SYPHILIS NON-REACTIVE NON-REACTIVE URINE DIP ([facility]) Color selena Clarity cloudy Glucose negative Bilirubin negative Ketones 3+ Specific Ephraim 1.030 Blood negative PH 5 Protein trace Uro negative Nitrates negative Leukocytes 1+ URINE DIP ([facility]) 2018-09-04 Color Clarity Glucose negative Bilirubin Ketones Specific [place] Blood PH Protein trace Uro Nitrates Leukocytes US OB GREATER THAN 14 WEEKS 2018-10-09 URINE DIP ([facility]) 2018-08-18 Color Clarity Glucose negative Bilirubin Ketones Specific [place] Blood PH Protein negative Uro Nitrates Leukocytes CBC, WITH AUTO DIFF 2018-08-18 WBC 7.2 4.8-10.8 RBC 4.61 4.20-5.40 HGB 14.1 12.0-16.0 HCT 40.7 37.0-47.0 MCV 88.3 81.0-99.0 MCH 30.6 27.0-31.0 MCHC 34.6 32.0-37.0 RDW-CV 12.8 11.5-14.5 PLT 217 130-400 MPV 10.4 7.4-10.4 NE% 64.5 42.2-75.2 LY% 27.0 20.5-51.1 EO% 0.4 0.9-2.9 BA% 0.3 0.0-0.8 NE# 4.6 1.4-6.5 LY# 1.9 1.2-3.4 MO# 0.5 0.1-0.6 EO# 0.0 0.0-0.2 BA# 0.0 0.0-0.2 CULTURE URINE 2018-08-18 HEPATITIS B SURFACE ANTIGEN, 2018-08-18 HEP B SURFACE AG NON-REACTIVE NON-REACTIV E RUBELLA IGG ANTIBODY 2018-08-18 RUBELLA >500.0 >=10.0 RUB HEAD REFERENCE RANGE: (IU /mL) <5.0 : NON-IMMUNE 5.0 - 9.9 : OLIVAREZ ZONE >= 10.0 : IMMUNE TYPE AND SCREEN, 2018-08-18 ABORh O POSITIVE ANTIBODY SCREEN NEGATIVE NEGATIVE TS COMM Pre-op Type & Screen specimens are valid for 7 days. If the patient has been transfused or been within the past 3 months, the specimen is only valid for 3 days. HIV12P 2018-08-18 HIV1/O/2 Abs,P24Ag NON-REACTIVE NON-REACT [place] SYPHILIS, 2018-08-18 SYPHILIS NON-REACTIVE NON-REACTIVE US OB LESS THAN 14 WEEKS 2018-07-28 Test (Rapid) Urine 2018-07-22 Result positive Control Passed HCG, BETA (QUANT) 2018-07-22 BETA HCG 76257.0 <=5.0 BHCG INT WEEKS POST LMP APPRO XIMATE HCG (mIU/mL) 3-4 weeks 9 - 130 4-5 weeks 75 - 2600 5-6 weeks CHLAMYDIA/GC by PCR URINE 2018-03-25 Chlamydia trachomatis, EVELIA Not detected Neisseria gonorrhoeae, EVELIA Not detected Specimen Requirements C. trachomatis by PCR Please Note: N. gonorrhoeae by PCR Test (Rapid) Urine 2018-03-25 Result positive Control Passed Pap Lb, rfx HPV all pth 2018-03-25 . Note: . Clinical history: DIAGNOSIS: Neg BRIAN neg HR HPV Specimen adequacy: Additional comment: Recommendation: Performed by: Electronically signed by: Test ordered: Maturation index: Amended report: Addendum: QC reviewed by: Cytology history: Special procedure: QA comment: Diagnosis provided by: Source: Pathologist provided ICD9: Clinician provided ICD9: Interpretation LBP CPT Code Automation URINALYSIS, DIP ONLY 2018-03-25 CLARITY clear COLOR yellow NITRITES neg REDUCING SUBSTANCES SPECIFIC GRAVITY 1.015 UROBILINOGEN neg BILIRUBIN neg BLOOD neg GLUCOSE neg KETONES neg pH 5 PROTEIN neg LEUKOCYTES neg REASON FOR VISIT UPDATE MEDS, ENT pressure in face, Sore throat, No show for 6 wk IUD f/up appt tofay, *[employer] 6 weeks Mirena IUD check, 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 Srivastava, *[employer] 2 wks pp, *OB 1 WK, [facility]: O B f/u, OB follow up, OB sick, [facility]: OB Eld 2+/3rd tri, I'm scared, *OB follow up, [facility]: OB Eld 2+/3rd tri, *OB follow up, [facility]: OB Eld 2+/3rd tri, *OB follow up, [facility]: OB Eld 2+/3rd tri, *OB follow up, OB ? UTI, [facility]: OB Eld 2+/3rd tri, *OB follow up, FYI-R/S appt, *01/01 _update Anesthesia Consult,OB follow up, anesthesia consult, *OB follow up, [facility]: OB Eld 2+/3rd tri, elevated 1hr GTT, *OB follow up, [facility]: OB Eld 2+/2nd tri, patient with diarrhea, *OB follow up, [facility]: OB Eld 2+/2nd tri, FYI-congestion, OB EST S/P F/UP 5 wks US, *OB EST 2 WK F/UP PER DR BERNSTEIN, [facility]: OB Eld 2+/2nd tri, OB follow up, OB INITIAL, OB INITIAL, OB N/V/D x 1 week, Quant, needs US, [employer] bleeding in early pregancy 6+6, borwn discharge, started this morning , NEW OB LMP 01/28/2018, NEW OB LMP 01/28/2018, OR- D & C with Suction, cancel D & C?, OB EST S/P OB U.S., Post- PAP question, 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 in vaginal area, questions/concerns, ENT sinus pressure , Sinus Headache and Pressure, severe sore throat, low-grade fevers, otalgia, ent-allergy shot, ent-allergy shot, ent- allergy shot, right facial pain, right-sided purulent rhinorrhea, right periorbitall headache, ent-allergy shot, ent-allergy shot, ent-allergy shot, ent-allergy shot, ent-allergy shot, TW, ent-allergy shot, ent-allergy shot, ent- test wheal, ent-allergy shot, ent-test wheal, ent serum, ent-2 wk fu , ent-2 wk fu, ent shot, ent shot, ent-congested feeling, ent shot, ent shot, ent shot, ENT-Allergy Shot, ENT-Allergy Shot, ENT-TestWheal/No pfp, ent new allergy serum, ENT-Allergy Test-enviornmental, allergy consult, allergy consult, allergic rhinitis, ENT JAW PAIN, ENT JAW AND EAR PAIN, status post adenotonsillectomy, ENT T & A, chronic recurrent strep throat, recurring sinusitis Insurance Providers Health Insurance Type Health Plan Insurance Address Health Plan Insurance Phone Health Plan Insurance Name Health Plan Coverage Dates Member ID Patient Relationship to Subscriber Patient Address Patient Phone Patient Name Patient Date of Subscriber ID Subscriber Name Subscriber Date of Group No [place] [address] [facility] [id number] [place] Aisha Zuñiga [id number] [facility] - DO NOT BILL (Write Off) [address] [facility] [address] [place] [facility] - DO NOT BILL (Write Off) self Aisha Zuñiga [id number]
[2022-08-02 08:42] LABS: Calculated LDL 196 mg/dL (<100); Cholesterol 274 mg/dL (<200); HDL Cholesterol 42 mg/dL (40-60); Triglyceride 183 mg/dL (<150)
[2022-08-02 08:43] LABS: Hemoglobin A1C 5.1 % (<5.7)
== END 2022-08-02 02:07 | disposition home or self-care (01) ==
PROVIDERS: PCP Nurse Practitioner Family; Visit Provider Nurse Practitioner Family
DX: E78.5 Hyperlipidemia, unspecified (principal)
CPT/HCPCS: 36415; 80061; 83036

== ENCOUNTER 2022-08-14 01:39 | Outpatient (CLI) | payer MEDICAID, SELFPAY ==
--- NOTE | 2022-08-14 07:30 | DI.MRI_ITS ---
Exam(s) MR UPPER JOINT RT WO EXAM: MR UPPER JOINT RT WO CLINICAL HISTORY: right elbow pain - chronic,m25.521. TECHNIQUE: Multiplanar multisequence MRI was performed. COMPARISON: No exams were available for comparison FINDINGS: BONES: There is no fracture or contusion pattern. JOINTS: The articular cartilage is unremarkable. No joint effusion is present. TENDONS: Common flexors: Unremarkable. Common extensors: Unremarkable. Biceps: Unremarkable. Triceps: Unremarkable. MUSCLES: Unremarkable. MEDIAN NERVE: Unremarkable on this noncontrast examination. ULNAR NERVE: Unremarkable on this noncontrast examination. SOFT TISSUES: Unremarkable. LIGAMENTS: Ulnar collateral: Unremarkable. Radial collateral: Unremarkable. OTHER: IMPRESSION: Unremarkable MRI of the right elbow. DATA REPOSITORY:
== END 2022-08-14 01:59 ==
LOC: DI 01:40
PROVIDERS: PCP Nurse Practitioner Family; Visit Provider Family Medicine
DX: M25.521 Pain in right elbow (principal)
CPT/HCPCS: 73221

== ENCOUNTER 2022-09-17 10:25 | Outpatient (CLI) | payer MEDICAID, SELFPAY ==
--- NOTE | 2022-09-17 10:15 | DI.RAD_ITS ---
Exam(s) XR ELBOW RT COMPLETE EXAM: XR ELBOW RT COMPLETE CLINICAL HISTORY: elbow pain. TECHNIQUE: 2D digital imaging was performed of the left elbow. Three images were obtained. AP, lat eral and oblique views were obtained. COMPARISON: MR MR UPPER JOINT RT WO from 08/14/2022 FINDINGS: BONES: No acute fracture is present. No bony destructive lesion is seen. JOINTS: The elbow is normally aligned. No joint effusion is seen. SOFT TISSUE: Normal. IMPRESSION: Unremarkable radiographs of the right elbow. DATA REPOSITORY: RADIATION DOSE DELIVERED:
== END 2022-09-17 10:26 | disposition home or self-care (01) ==
LOC: DIORS 10:25
PROVIDERS: PCP Nurse Practitioner Family; Referring Provider Nurse Practitioner Family; Visit Provider Student in an Organized Health Care Education/Training Program
DX: M25.521 Pain in right elbow (principal)
CPT/HCPCS: 73080

== ENCOUNTER 2022-11-14 14:02 | Emergency (ER) | payer MEDICAID, SELFPAY ==
[2022-11-14] VITALS (26 sets, daily range): BP systolic 114–137; BP diastolic 60–85; PULSE 75–96; RESP 1–28; TEMP 36.7; O2SAT 95–100
--- NOTE | 2022-11-14 14:15 | RT.EKG_ITS ---
APPROVED REPORT Exam: Resting ECG Reason for Exam: chest tightness Patient Location: E HR:73 bpm ECG Measurements Heart Rate 73 AXIS [place] 177 P 43 QRSd 89 QRS 14 QT 394 T 2 QTc 433 Conclusion Sinus rhythm...normal P axis, V-rate 60- 99 Low voltage, precordial leads...precordial leads <1.0mV Sinus rythym. No prior. WD
[2022-11-14] MEDS: Albuterol/Ipratropium 3 ML UPD VIAL UPD (15:22)
[2022-11-14 15:29] LABS: Abs Immature Grans 0.03 10^3/uL (0.0-0.06); Absolute Basophil Count 0.02 10^3/uL (0.0-0.2); Absolute Eosinophil Count 0.06 10^3/uL (0.0-0.7); Absolute Monocyte Count 0.31 10^3/uL (0.1-0.8); Absolute Neutrophil Count 2.79 10^3/uL (1.2-6.7); Basophils % 0.4; Eosinophils % 1.1; HCT 40.7 % (36.0-46.0); HGB 13.7 g/dL (11.2-15.7); Immature Grans % 0.6; Lymphocytes % 39.5; MCH 30.2 pg (27.0-33.0); MCHC 33.7 % (32.0-36.0); MCV 90 fL (80-95); Monocytes % 5.8; Neutrophils % 52.6; Platelet Count 249 10^3/uL (130-400); RBC 4.54 10^6/uL (3.93-5.22); RDW 11.8 % (11.7-14.6); RDW-SD 38.6 fL; WBC 5.31 10^3/uL (4.4-10.8)
--- NOTE | 2022-11-14 15:33 | ED.GENADUL_ITS ---
Discharge Plan Disposition Patient Disposition: Home Condition: Improving Discharge Details Clinical Impression: Acute viral syndrome, Acute costochondritis, Bronchitis Primary Care Provider: Leeanne Jaffe ED Provider: Marisol Galvez Home Meds and New Rx's Prescriptions: New prednisone 20 mg tablet 40 mg PO DAILY Qty: 10 0RF azithromycin [Zithromax Z-Hu] 250 mg tablet See Rx Instructions .ROUTE .COMPLEX Qty: 6 0RF Rx Instructions: For 250 mg dose pack: take 500 mg today (day 1), then 250 mg for 4 days (days 2-5) Continued fluticasone propion-salmeterol [Advair HFA] 115-21 mcg/actuation HFA aerosol inhaler 2 puff inhalation BID Qty: 12 12RF Patient Comments: not taking Rx Instructions: administer with spacer estradiol 0.1 mg/24 hr patch semiweekly 1 patch transdermal ONCE cetirizine [Zyrtec] 10 MG tablet 10 mg PO daily prn Patient Comments: not taking albuterol sulfate [ProAir HFA] 90 mcg/actuation HFA aerosol inhaler 2 puff Inhalation Q4H PRN (Reason: shortness of breath or wheezing) Qty: 8.5 1RF Patient Comments: not taking rosuvastatin 10 mg tablet 10 mg PO DAILY Qty: 90 3RF Patient Comments: not taking lorazepam 0.5 mg tablet 0.5 - 1 mg PO ONCE MDD 1mg PRN (Reason: panic attack(s)) Qty: 3 0RF Patient Comments: not taking omeprazole 20 mg capsule,delayed release(DR/EC) 20 mg PO DAILY Qty: 90 3RF Patient Comments: not taking Discharge Instructions Instructions: Acute Bronchitis (ED), Viral Syndrome (ED) Additional Instructions: Use your inhaler, 2 puffs with spacer every 4-6 hours for cough, wheeze, shortness of breath Take the prednisone as prescribed Follow-up with your PCP in 2 to 3 days for reassessment and return earlier should you have new or worsening complaints. Getting worse and develop a fever or productive cough he can start Zithromax as directed. We recommend that you take a probiotic while on antibiotics.. Discharge Data Discharge Date/Time-TO BE ENTERED AT DEPARTURE: 11/14/22 18:26 Discharge Physician: Marisol Galvez Medical Decision Making 42-year-old female presenting with report of chest pain with viral symptoms for the past week Secondary to complaints and morbidities, I did order diagnostic labs, troponin, D-dimer I have held on imaging of patient's chest pending D-dimer, will order CTA if D- dimer is positive, will order chest x-ray if D-dimer is negative I suspect patient's symptoms are viral in nature, however will sign out pending troponin, dimer, imaging of patient's chest, and disposition As she has had symptoms since last evening I think 1 troponin is reasonable We will administer DuoNeb, likely give steroids for discharge home depending on the results of patient's diagnostic labs and imaging and treat for bronchitis Medical Records Medical records reviewed: Yes I reviewed the patient's medical records. Lab Data Lab results reviewed: Yes I reviewed the patient's lab results. HPI General Date/Time Provider Initiated Documentation: 11/14/22 14:57 . HPI Narrative: This 42-year-old female presents with report of chest pain, myalgias, shortness of breath for the past 24 hours, prior to that she had headache and sore throat. She denies any fever. She has a history of asthma, she is been using her inhalers as prescribed. Denies recent flights, surgeries, long drives, does take exogenous hormones, had a history of hysterectomy approximately year ago secondary to migraines. Denies known sick contacts, has had several negative COVID swabs. Related Data Home Medications Medication Instructions Recorded Confirmed cetirizine 10 mg tablet (Zyrtec) 10 mg PO daily prn 10/12/12 11/12/22 albuterol sulfate 90 mcg/actuation 2 puff inhalation Q4H PRN 12/24/21 11/12/22 aerosol inhaler (ProAir HFA) shortness of breath or wheezing #8.5 grams rosuvastatin 10 mg tablet 10 mg PO DAILY #90 tabs 08/07/22 11/12/22 lorazepam 0.5 mg tablet 0.5 - 1 mg PO ONCE PRN panic 09/02/22 11/12/22 attack(s) #3 tabs estradiol 0.1 mg/24 hr semiweekly 1 patch transdermal ONCE 09/17/22 11/12/22 transdermal patch fluticasone propionate 115 2 puff inhalation BID #12 grams 10/18/22 11/12/22 mcg-salmeterol 21 mcg/actuation HFA inhaler (Advair HFA) omeprazole 20 mg capsule,delayed 20 mg PO DAILY #90 caps 11/11/22 11/12/22 release azithromycin 250 mg tablet See Rx Instructions PO .COMPLEX #6 11/14/22 (Zithromax Z-Hu) tabs prednisone 20 mg tablet 40 mg PO DAILY #10 tabs 11/14/22 Previous Rx's Medication Instructions Recorded albuterol sulfate 90 mcg/actuation 2 puff inhalation Q4H PRN 12/24/21 aerosol inhaler (ProAir HFA) shortness of breath or wheezing #8.5 grams rosuvastatin 10 mg tablet 10 mg PO DAILY #90 tabs 08/07/22 lorazepam 0.5 mg tablet 0.5 - 1 mg PO ONCE PRN panic 09/02/22 attack(s) #3 tabs fluticasone propionate 115 2 puff inhalation BID #12 grams 10/18/22 mcg-salmeterol 21 mcg/actuation HFA inhaler (Advair HFA) omeprazole 20 mg capsule,delayed 20 mg PO DAILY #90 caps 11/11/22 release azithromycin 250 mg tablet See Rx Instructions PO .COMPLEX #6 11/14/22 (Zithromax Z-Hu) tabs prednisone 20 mg tablet 40 mg PO DAILY #10 tabs 11/14/22 Allergies Allergy/AdvReac Type Severity Reaction Status Date / Time chlorhexidine Allergy Mild Skin Rash Unverified 11/14/22 14:15 metoclopramide HCl AdvReac Intermediate CREEPY Unverified 11/14/22 14:15 [From Reglan] CRAWLY FEELINGS General Stated Complaint: Chest Pain VIOLET: 3 PFSH All Active Problems (Updated 11/15/22 @ 12:19 by Leeanne Jaffe NP) Acute viral syndrome (Acute) Acute costochondritis (Acute) Bronchitis (Acute) Azul's syndrome (Chronic ~2021) Major depressive disorder, recurrent (Chronic) Generalized anxiety disorder with panic attacks (Chronic) Hyperlipidemia (Chronic) Chronic fatigue (Chronic) Daytime somnolence (Chronic) GERD (gastroesophageal reflux disease) (Chronic) Hiatal hernia (Chronic) Migraine (Chronic) Obesity, Class III, BMI 40-49.9 (morbid obesity) (Chronic) IUD surveillance (Chronic) Chronic pain of right elbow (Chronic) Anal fissure (Chronic) Hemorrhoids (Chronic) Chronic diarrhea (Chronic) Right Achilles tendinitis (Chronic) Right elbow pain (Chronic) Allergic rhinitis (Chronic) Medical History (Updated 11/15/22 @ 12:19 by Leeanne Jaffe NP) Asthma COVID-19 (12/24/21) Juvenile rheumatoid arthritis Surgical History (Updated 09/13/22 @ 15:18 by Leeanne Jaffe NP) H/O total hysterectomy with bilateral salpingo-oophorectomy (BSO) (09/10/22) with TVT vaginal sling for abnormal uterine bleeding S/P cholecystectomy S/P sinus surgery S/P tonsillectomy Status post Luis F fundoplication Family History Mother Depression Hyperlipidemia Hypertension Father , 62 Diabetes Depression Heart disease Hyperlipidemia Stroke Esophageal cancer Cancer of kidney Sister Stroke Brother Depression Hyperlipidemia Asthma Glaucoma Brother No problems noted. Son Depression Asthma Periodic fever, aphthous stomatitis, pharyngitis, adenitis (PFAPA) syndrome Daughter No problems noted. Daughter No problems noted. Maternal Grandfather No problems noted. Maternal Grandmother Heart disease Paternal Grandfather No problems noted. Paternal Grandmother Diabetes Social History Smoking/Tobacco Use Status: Never Second Hand Exposure: Yes Smoking risk assessment performed?: Yes Alcohol Intake: current Alcohol Intake frequency: a few times a month Alcohol type: hard liquor Drug use: Never Substance use type: does not use Caregiver/Support person: No Household members: children Communication Needs: None current occupation: owns and manages [employer] Pets and animals: Yes Pets and animals: cat(s) and dog(s) Sexually active: Yes Do you think of yourself as: straight/heterosexual Current gender identity: female What is your relationship status?: How often do you talk on the phone with friends or family?: three or more times per week How often do you get together with friends or relatives?: twice per week How often do you attend sabianist or buddhism services?: decline to answer Do you belong to any clubs or organized social groups?: no Panel score (0-1 are the most socially isolated patients): 1 What type of physical activity do you participate in: walking Duration: 15-30 minutes/day Frequency: 3-4 times per week Rosa/Samaritan: None Special rosa needs: No Seatbelt use: sometimes 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 Do you feel safe at home: Yes Do you feel safe in your relationship?: Yes Exam Const General: cooperative, comfortable, no acute distress and well developed Resp Effort & Inspection: normal respiratory effort Auscultation: clear to auscultation bilaterally Other: No tenderness to palpation on chest wall Cardio Rate: regular rate Rhythm: regular rhythm GI Other: No abdominal tenderness Skin General skin exam: no rashes or lesions noted Neuro General: patient alert and patient oriented x3 Extrem Other: no calf swelling or tenderness distal pulses intact Course Vital Signs Vital signs: Vital Signs Temperature 36.7 C 11/14/22 14:09 Pulse 84 11/14/22 14:09 Respiratory Rate 18 11/14/22 14:09 Blood Pressure 127/60 11/14/22 14:09 Pulse Oximetry 100 11/14/22 14:09 Temperature 36.7 C 11/14/22 14:09 Pulse 84 11/14/22 14:09 Respiratory Rate 22 11/14/22 15:22 Respiratory Effort Normal, Non-Labored 11/14/22 14:54 Respiratory Depth Normal 11/14/22 14:54 Respiratory Pattern Normal 11/14/22 14:54 Blood Pressure 127/60 11/14/22 14:09 Blood Pressure Position Sitting 11/14/22 14:09 Pulse Oximetry 99 11/14/22 15:22 Oxygen Delivery Method Room Air 11/14/22 15:22 Oxygen Flow Rate 0 11/14/22 15:22 Pain Level 5 11/14/22 14:54 Lab/Test Results Lab/Test Results: Laboratory Tests Range/Units 11/14/22 15:04 WBC (4.4-10.8) 10^3/uL 5.31 RBC (3.93-5.22) 10^6/uL 4.54 Hgb (11.2-15.7) g/dL 13.7 Hct (36.0-46.0) % 40.7 MCV (80-95) fL 90 MCH (27.0-33.0) pg 30.2 MCHC (32.0-36.0) % 33.7 RDW (11.7-14.6) % 11.8 Plt Count (130-400) 10^3/uL 249 MPV (8.0-11.0) fL 10.0 Immature Gran % 0.6 Neutrophils % 52.6 Lymphocytes % 39.5 Monocytes % 5.8 Eosinophils % 1.1 Basophils % 0.4 Nucleated RBC % (0.0-0.3) % 0.0 Absolute Neutrophils (1.2-6.7) 10^3/uL 2.79 Absolute Lymphocytes (1.2-3.4) 10^3/uL 2.10 Absolute Monocytes (0.1-0.8) 10^3/uL 0.31 Absolute Eosinophils (0.0-0.7) 10^3/uL 0.06 Absolute Basophils (0.0-0.2) 10^3/uL 0.02 Sign Out Sign Out Data: Sign Out Comment: pending ddimer and imaging cta vs cxr Last updated by Mihaela Hobson PA at 11/14/22 16:06
[2022-11-14 15:55] LABS: COVID-19 PCR Negative (Negative); Influenza A PCR Negative (Negative); Influenza B PCR Negative (Negative); RSV PCR Negative (Negative)
[2022-11-14 15:57] LABS: Source Nasopharynx
[2022-11-14 15:59] LABS: ALT 35 U/L (14-59); AST 11 U/L (15-37); Albumin 3.8 g/dL (3.4-5.0); Alkaline Phosphatase 89 U/L (46-116); Anion Gap 9.6 mmol/L (3-11); BUN 14 mg/dL (7-18); Bilirubin, Total 0.3 mg/dL (0.2-1.0); CO2 26.4 mmol/L (21.0-32.0); CREATININE 0.8 mg/dL (0.55-1.02); Calcium 8.9 mg/dL (8.5-10.1); Chloride 103 mmol/L (98-107); Estimated GFR 94.87 (mL/min/1.73m2); Glucose 82 mg/dL (74-106); Lipase 31 U/L (16-77); Potassium 3.7 mmol/L (3.5-5.1); Sodium 139 mmol/L (136-145); Total Protein 7.5 g/dL (6.4-8.2); Troponin I < 50 ng/L (<or=60)
[2022-11-14 16:14] LABS: D-Dimer 669 ng/mlFEU (<500)
--- NOTE | 2022-11-14 16:45 | DI.CT_ITS ---
Exam(s) CT CHEST PE CTA EXAM: CT CHEST PE CTA CLINICAL HISTORY: chest pain elevated d-dimer. TECHNIQUE: Imaging Protocol: CT angiography of the chest was performed using pulmonary embolus ricco col. Multi planar reconstructions were performed. CONTRAST MATERIAL: Intravenous: Omnipaque 350 Contrast volume: 100 cc COMPARISON: CT CT CHEST WO from 02/07/2022 FINDINGS: CHEST: PULMONARY ARTERIES: There are no obvious intraluminal filling defects to suggest acute pulmonary embo li. LUNGS: There are no infiltrates nor evidence of pulmonary infarction.. There are no pleural effusions . Tiny calcified granuloma in the lateral segment of the right middle lobe is again noted. Symmetri javi increased dependent markings in the posterior lungs noted. MEDIASTINUM: There is no hilar nor mediastinal adenopathy. Visualized thyroid unremarkable. CARDIAC: Heart size is upper normal. There is no pericardial effusion.Caliber of the thoracic aorta is within normal limits. No evidence of aortic dissection. There is no significant shift of the inte rventricular septum. PARTIALLY VISUALIZED UPPERMOST ABDOMEN: No adrenal masses. Moderate size hiatal hernia. OSSEOUS: No significant osseous lesions.No fractures.. IMPRESSION: 1. Less than optimal opacification of the pulmonary arterial tree. However, there is no evidence of obvious acute pulmonary emboli. No evidence of pulmonary infarction.No pleural effusions. 2. No evidence of aortic dissection nor pericardial effusion Called by myself to ER RADIATION DOSE DELIVERED: 543.12mGy.cm Total DLP DATA REPOSITORY: All CT scans at this facility are submitted to the National Radiology Data Registry (NRDR) Dose Index Registry (DIR) with the [employer] (ACR). RADIATION OPTIMIZATION: All CT scans at this facility use at least one of these dose optimization te chniques: automated exposure control; mA and/or kV adjustment per patient size (includes targeted exa ms where dose is matched to clinical indication); or iterative reconstruction.
--- NOTE | 2022-11-14 16:48 | W.EDPROG ---
Date of service: 11/14/22 Time of Service: 21:00 Medical Decision Making This is a 42-year-old female who presents with chest pain and shortness of breath. She has an elevated D-dimer and we will obtain a CT scan to rule out PE. If her CT is negative we will discharge her home with outpatient follow-up. I will give her a prescription for Zithromax to take if her symptoms are worse. This is most likely a viral illness. Differential Diagnosis Differential Diagnosis: PE, bronchospasm, viral illness Medical Records Medical records reviewed: Yes I reviewed the patient's medical records. Imaging Data Radiologic Study: Imaging: CT Scan Radiologist's impression: IMPRESSION: 1. Less than optimal opacification of the pulmonary arterial tree. However, there is no evidence of obvious acute pulmonary emboli. No evidence of pulmonary infarction.No pleural effusions. 2. No evidence of aortic dissection nor pericardial effusion Narrative I have received sign out and have examined the patient. D-dimer is elevated. I will order a CT angio of chest if renal function is normal. Sign Out Sign Out Data: Sign Out Comment: pending ddimer and imaging cta vs cxr Last updated by Mihaela Hobson PA at 11/14/22 16:06 Discharge Plan Disposition Patient Disposition: Home Condition: Improving Discharge Details Clinical Impression: Acute viral syndrome, Acute costochondritis, Bronchitis Primary Care Provider: Leeanne Jaffe ED Provider: Marisol Galvez Home Meds and New Rx's Prescriptions: New prednisone 20 mg tablet 40 mg PO DAILY Qty: 10 0RF azithromycin [Zithromax Z-Hu] 250 mg tablet See Rx Instructions .ROUTE .COMPLEX Qty: 6 0RF Rx Instructions: For 250 mg dose pack: take 500 mg today (day 1), then 250 mg for 4 days (days 2-5) Continued fluticasone propion-salmeterol [Advair HFA] 115-21 mcg/actuation HFA aerosol inhaler 2 puff inhalation BID Qty: 12 12RF Patient Comments: not taking Rx Instructions: administer with spacer estradiol 0.1 mg/24 hr patch semiweekly 1 patch transdermal ONCE cetirizine [Zyrtec] 10 MG tablet 10 mg PO daily prn Patient Comments: not taking albuterol sulfate [ProAir HFA] 90 mcg/actuation HFA aerosol inhaler 2 puff Inhalation Q4H PRN (Reason: shortness of breath or wheezing) Qty: 8.5 1RF Patient Comments: not taking rosuvastatin 10 mg tablet 10 mg PO DAILY Qty: 90 3RF Patient Comments: not taking lorazepam 0.5 mg tablet 0.5 - 1 mg PO ONCE MDD 1mg PRN (Reason: panic attack(s)) Qty: 3 0RF Patient Comments: not taking omeprazole 20 mg capsule,delayed release(DR/EC) 20 mg PO DAILY Qty: 90 3RF Patient Comments: not taking Discharge Instructions Instructions: Acute Bronchitis (ED), Viral Syndrome (ED) Additional Instructions: Use your inhaler, 2 puffs with spacer every 4-6 hours for cough, wheeze, shortness of breath Take the prednisone as prescribed Follow-up with your PCP in 2 to 3 days for reassessment and return earlier should you have new or worsening complaints. Getting worse and develop a fever or productive cough he can start Zithromax as directed. We recommend that you take a probiotic while on antibiotics.. Discharge Data Discharge Date/Time-TO BE ENTERED AT DEPARTURE: 11/14/22 18:26 Discharge Physician: Marisol Galvez
[2022-11-14] MEDS: Normal Saline - Diluent 50 ML VIAL IJ (17:24)
[2022-11-14] MEDS: Omnipaque 350 MG/ML 100 ML BTL IJ (17:24)
[2022-11-14] MEDS: Normal Saline Flush 10 ML SYR IVP (17:25)
[2022-11-14] MEDS: predniSONE 20 MG TAB 40 MG PO (18:12)
== END 2022-11-14 18:26 | disposition home or self-care (01) ==
PROVIDERS: Physician Assistant; Emergency Provider Emergency Medicine Emergency Medical Services; PCP Nurse Practitioner Family
DX: J40 Bronchitis, not specified as acute or chronic (principal); M94.0 Chondrocostal junction syndrome [Tietze]; B34.9 Viral infection, unspecified; R06.02 Shortness of breath
CPT/HCPCS: 36415; 71275; 80053; 83690; 87637; 93005; 94640; 99285; 84484; 85025; 85379; 93010; 99284; J3490; J7512; J7620

== ENCOUNTER 2023-06-30 10:18 | Outpatient (CLI) | payer MEDICAID, SELFPAY ==
--- NOTE | 2023-06-30 10:15 | RT.EKG_ITS ---
APPROVED REPORT Exam: Resting ECG Reason for Exam: screening for sarcoid Patient Location: O HR:77 bpm ECG Measurements Heart Rate 77 AXIS [place] 175 P 35 QRSd 96 QRS 13 QT 393 T 11 QTc 445 Conclusion Sinus rhythm...normal P axis, V-rate 50- 99 Normal Electrocardiogram
== END 2023-06-30 10:19 | disposition home or self-care (01) ==
LOC: DI.CM 10:21
PROVIDERS: PCP Nurse Practitioner Family; Visit Provider Nurse Practitioner Family
DX: D86.9 Sarcoidosis, unspecified (principal)
CPT/HCPCS: 93010

== ENCOUNTER 2023-09-18 13:24 | Emergency (ER) | payer MEDICAID, SELFPAY ==
[2023-09-18 13:38] VITALS: BP 135/79; PULSE 97; RESP 16; TEMP 36.7; O2SAT 98
--- NOTE | 2023-09-18 13:45 | ED.GENADUL_ITS ---
Discharge Plan Disposition Patient Disposition: Home Condition: Stable Discharge Details Clinical Impression: Cellulitis of right thumb Primary Care Provider: Leeanne Jaffe ED Provider: Subhash Ibarra Home Meds and New Rx's Prescriptions: New cephalexin 500 mg capsule 500 mg PO QID 7 Days Qty: 28 0RF mupirocin 2 % ointment 1 applic topical TID Qty: 15 0RF Rx Instructions: apply 1/2 to affected area three times daily, cover with sterile dressing Continued fluticasone propion-salmeterol [Advair HFA] 115-21 mcg/actuation HFA aerosol inhaler 2 puff inhalation BID Qty: 12 12RF Patient Comments: not taking Rx Instructions: administer with spacer zolpidem 5 mg tablet 5 mg PO QHS PRN Rx Instructions: may repeat once if no response in 30-60 minutes lorazepam 0.5 mg tablet 0.5 - 1 mg PO DAILY MDD 1mg PRN (Reason: panic attack(s)) Qty: 30 0RF Patient Comments: not taking cetirizine [Zyrtec] 10 MG tablet 10 mg PO daily prn Patient Comments: not taking albuterol sulfate [ProAir HFA] 90 mcg/actuation HFA aerosol inhaler 2 puff Inhalation Q4H PRN (Reason: shortness of breath or wheezing) Qty: 8.5 1RF Patient Comments: not taking rosuvastatin 10 mg tablet 10 mg PO DAILY Qty: 90 3RF Patient Comments: not taking omeprazole 20 mg capsule,delayed release(DR/EC) 20 mg PO DAILY Qty: 90 3RF Patient Comments: not taking phentermine 37.5 mg tablet 37.5 mg PO DAILY topiramate 50 mg tablet 50 mg PO BID modafinil 200 mg tablet 400 mg PO DAILY Discharge Instructions Instructions: Cephalexin (By mouth), Mupirocin (On the skin), Cellulitis (ED) Additional Instructions: You were seen in the emergency department for the lesions on the right thumb from self picking behavior. This is likely an early infection you have no signs of systemic infection at this time, I have sent a prescription for Keflex to treat your cellulitis as well as topical mupirocin for any wounds that you may have to prevent infection. Please watch for signs of infection like fever, increasing redness, flexion contractures of fingers, nausea, red streaking up the arm. Please use therapeutic dosing of Tylenol (acetamenophen) & Advil (ibuprofen) in an alternating fashion as follows: Take 1000mg of Tylenol every 6 hours without missing doses- that is 4 times per day. [place] in between the Tylenol dosings, take 400-600mg of Advil also on a 6 hour schedule, that is also 4 times per day. The daily maximum dosing of Tylenol is 4000mg, and the daily maximum dosing of Advil is 2400mg. This is safe to do for weeks. Please note that some common cold medications & prescription pain medications may contain acetamenophen and you need to read OTC drug labels and factor that in to maximum daily dosings. Referrals: Leeanne Jaffe NP [Primary Care Provider] - HPI General Date/Time Provider Initiated Documentation: 09/18/23 13:44 . HPI Narrative: 43 year-old female presents to ED today by POV/ambulating with a chief complaint of R thumb pain, does have a habit of picking at her skin until its raw- has an open picking lesion here with onset of re-opening the area last night by picking- patient does see a therapist and they have made improvements long-term of this habit. Quality described as soreness in the thumb, no radiation to active bleeding, severe erythema, inability to ROM the thumb, red streaking, fever. Severity is described as moderate. Palliating factors include nothing specific. Provoking factors include nothing specific. Patient not anticoagulated. Related Data Home Medications Medication Instructions Recorded Confirmed cetirizine 10 mg tablet (Zyrtec) 10 mg PO daily prn 10/12/12 06/30/23 albuterol sulfate 90 mcg/actuation 2 puff inhalation Q4H PRN 12/24/21 06/30/23 aerosol inhaler (ProAir HFA) shortness of breath or wheezing #8.5 grams rosuvastatin 10 mg tablet 10 mg PO DAILY #90 tabs 08/07/22 06/30/23 fluticasone propionate 115 2 puff inhalation BID #12 grams 10/18/22 06/30/23 mcg-salmeterol 21 mcg/actuation HFA inhaler (Advair HFA) omeprazole 20 mg capsule,delayed 20 mg PO DAILY #90 caps 11/11/22 06/30/23 release phentermine 37.5 mg tablet 37.5 mg PO DAILY 06/26/23 06/30/23 lorazepam 0.5 mg tablet 0.5 - 1 mg (1 - 2 x 0.5 mg) PO 06/30/23 06/30/23 DAILY PRN panic attack(s) #30 tabs modafinil 200 mg tablet 400 mg PO DAILY 06/30/23 06/30/23 topiramate 50 mg tablet 50 mg PO BID 06/30/23 06/30/23 zolpidem 5 mg tablet 5 mg PO QHS PRN 06/30/23 06/30/23 cephalexin 500 mg capsule 500 mg PO QID cellulitis 7 days 09/18/23 #28 caps mupirocin 2 % topical ointment 1 applic topical TID cellulitis 09/18/23 #15 grams Previous Rx's Medication Instructions Recorded albuterol sulfate 90 mcg/actuation 2 puff inhalation Q4H PRN 12/24/21 aerosol inhaler (ProAir HFA) shortness of breath or wheezing #8.5 grams rosuvastatin 10 mg tablet 10 mg PO DAILY #90 tabs 08/07/22 fluticasone propionate 115 2 puff inhalation BID #12 grams 10/18/22 mcg-salmeterol 21 mcg/actuation HFA inhaler (Advair HFA) omeprazole 20 mg capsule,delayed 20 mg PO DAILY #90 caps 11/11/22 release lorazepam 0.5 mg tablet 0.5 - 1 mg (1 - 2 x 0.5 mg) PO 06/30/23 DAILY PRN panic attack(s) #30 tabs cephalexin 500 mg capsule 500 mg PO QID cellulitis 7 days 09/18/23 #28 caps mupirocin 2 % topical ointment 1 applic topical TID cellulitis 09/18/23 #15 grams Allergies Allergy/AdvReac Type Severity Reaction Status Date / Time chlorhexidine Allergy Mild Skin Rash Unverified 06/30/23 09:51 metoclopramide HCl AdvReac Intermediate CREEPY Unverified 06/30/23 09:51 [From Reglan] CRAWLY FEELINGS General Stated Complaint: RashLesion VIOLET: 4 Review of Systems All systems reviewed & are unremarkable except as noted in HPI and below Exam Narrative Exam Narrative: GENERAL APPEARANCE: Well-nourished, non-toxic, awake and alert, atraumatic, no acute distress. SKIN: Warm, pink, dry, intact, excoriated area of the DIP of thumb, no active bleeding, no lynn induration or erythema, no purulent drainage, ROM intact in thumb, no lymphadenitis, no flexion contractures HEAD: Normocephalic, atraumatic, normal hair distribution for gender/age. EYES: Pupils PERRLA, EOMs intact without nystagmus, normal conjunctiva, no exudates on lids/lashes. ENT: Nares patent, no circumoral cyanosis, no facial swelling NECK: Supple, trachea midline, painless cervical ROM. LUNGS/CHEST: Non-labored respirations, normal A/P diameter, symmetrical expansion, no chest wall deformity HEART (CV/PV): Regular rate, R radial pulse 2+, no peripheral edema, no JVD. ABDOMEN: Soft, non-distended, no guarding. MSK: Normal ROM, no swelling/deformity to bilateral UEs or LEs, moving all extremities without weakness, no cyanosis, spine midline without tenderness, normal curvature. NEURO: Mental Status AAOx4 - alert to person, place, time, events No facial droop, no forehead involvement. Motor: No focal weakness - strength 5/5 in bilateral UEs and LEs, proximal and distal, symmetric. Sensory: sensation intact to light touch globally. Gait normal: patient ambulated without ataxia into ED room. PSYCH: euthymic, cooperative, pleasant, appropriate speech Course Vital Signs Vital signs: Vital Signs Temperature 36.7 C 09/18/23 13:38 Pulse 97 H 09/18/23 13:38 Respiratory Rate 16 09/18/23 13:38 Blood Pressure 135/79 09/18/23 13:38 Pulse Oximetry 98 09/18/23 13:38 Temperature 36.7 C 09/18/23 13:38 Temperature Source Tympanic 09/18/23 13:38 Pulse 97 H 09/18/23 13:38 Respiratory Rate 16 09/18/23 13:38 Blood Pressure 135/79 09/18/23 13:38 Blood Pressure Position Sitting 09/18/23 13:38 Pulse Oximetry 98 09/18/23 13:38 Oxygen Delivery Method Room Air 09/18/23 13:38 Oxygen Flow Rate 0 09/18/23 13:38 Pain Level 3 09/18/23 13:38 Comment Took ibuprofen this morning 09/18/23 13:38 Medical Decision Making This dictation utilizes [id number] dictation software and may contain unedited grammatical errors. 43 year-old female presents to ED today by POV/ambulating with a chief complaint of R thumb pain, does have a habit of picking at her skin until its raw- has an open picking lesion here with onset of re-opening the area last night by picking- patient does see a therapist and they have made improvements long-term of this habit. Quality described as soreness in the thumb, no radiation to active bleeding, severe erythema, inability to ROM the thumb, red streaking, fever. Severity is described as moderate. Palliating factors include nothing specific. Provoking factors include nothing specific. Patients' medical history: Depressive disorder, anxiety. Family and social history: noncontributory. Pertinent exam findings / vital signs include SKIN: Warm, pink, dry, intact, excoriated area of the DIP of thumb, no active bleeding, no lynn induration or erythema, no purulent drainage, ROM intact in thumb, no lymphadenitis, no flexion contractures. Differential / pathologies of concern include cellulitis, unlikely flexor tenosynovitis at this time, no large abscess. Diagnostic studies of: -None. Interventions of: -Outpatient Rx for Keflex. ED Course/Assessment/Plan: 43-year-old female who engages in self picking behavior picked at her right thumb last night because the area become raw and has an open lesion with scant dried blood, no active bleeding or purulent drainage, likely early cellulitis, plan to treat her with outpatient Keflex as well as topical mupirocin. Counseled her on signs of worsening infection like increasing redness, swelling, red streaking up the arm, fever and to return for ED evaluation if any of these present, counseled that antibiotics would likely begin to be definitively effective around day 3 on therapy. Findings not consistent with sepsis, tenosynovitis. Disposition of Cellulitis of Right Thumb. Patient verbalized understanding of the plan and return to ED criteria and engaged in shared decision making. Medical Records Medical records reviewed: Yes I reviewed the patient's medical records. Quality:SDOH Health Related Social Needs: Health related social needs material hardship Health related social needs details ... 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) Major depressive disorder, recurrent (Chronic) Generalized anxiety disorder with panic attacks (Chronic) Hyperlipidemia (Chronic) Chronic fatigue (Chronic) GERD (gastroesophageal reflux disease) (Chronic) Hiatal hernia (Chronic) Migraine (Chronic) Obesity, Class III, BMI 40-49.9 (morbid obesity) (Chronic) Hemorrhoids (Chronic) Chronic diarrhea (Chronic) Right Achilles tendinitis (Chronic) Chronic pain of right elbow (Chronic) Allergic rhinitis (Chronic) Medical History Juvenile rheumatoid arthritis Asthma Surgical History H/O total hysterectomy with bilateral salpingo-oophorectomy (BSO) (09/10/22) with TVT vaginal sling for abnormal uterine bleeding S/P cholecystectomy Status post Luis F fundoplication S/P sinus surgery S/P tonsillectomy Family History Mother Depression Hyperlipidemia Hypertension Father , 62 Diabetes Depression Heart disease Hyperlipidemia Stroke Esophageal cancer Cancer of kidney Sister Stroke Brother Depression Hyperlipidemia Asthma Glaucoma Brother No problems noted. Son Depression Asthma Periodic fever, aphthous stomatitis, pharyngitis, adenitis (PFAPA) syndrome Daughter No problems noted. Daughter No problems noted. Maternal Grandfather No problems noted. Maternal Grandmother Heart disease Paternal Grandfather No problems noted. Paternal Grandmother Diabetes Social History Smoking/Tobacco Use Status: Never Second Hand Exposure: Yes Smoking risk assessment performed?: Yes Alcohol Intake: current Alcohol Intake frequency: a few times a month Alcohol type: hard liquor Drug use: Never Substance use type: does not use Caregiver/Support person: No Household members: children Communication Needs: None current occupation: owns and manages [employer] Pets and animals: Yes Pets and animals: cat(s) and dog(s) Sexually active: Yes Do you think of yourself as: straight/heterosexual Current gender identity: female What is your relationship status?: How often do you talk on the phone with friends or family?: three or more times per week How often do you get together with friends or relatives?: twice per week How often do you attend uatsdin or denominational services?: decline to answer Do you belong to any clubs or organized social groups?: no Panel score (0-1 are the most socially isolated patients): 1 What type of physical activity do you participate in: walking Duration: 15-30 minutes/day Frequency: 3-4 times per week Rosa/Yarsanism: None Special rosa needs: No Seatbelt use: sometimes Drive intox or ride w/intox dedicated intermodal truck driver: No Do you feel safe at home: Yes Do you feel safe in your relationship?: Yes
[2023-09-18 14:24] VITALS: BP 135/79; PULSE 90; RESP 16; TEMP 36.7; O2SAT 98
== END 2023-09-18 14:25 | disposition home or self-care (01) ==
PROVIDERS: Emergency Provider Physician Assistant; PCP Nurse Practitioner Family
DX: M79.645 Pain in left finger(s) (principal); L03.011 Cellulitis of right finger
CPT/HCPCS: 99283

== ENCOUNTER 2024-03-07 17:55 | Emergency (ER) | payer MEDICAID, SELFPAY ==
[2024-03-07 17:57] VITALS: BP 125/82; PULSE 89; RESP 18; TEMP 36; O2SAT 97
--- NOTE | 2024-03-07 18:00 | DI.RAD_ITS ---
Exam(s) XR KNEE RT 3V AP,LAT,SHEFALI EXAM: XR KNEE RT 3V AP,LAT,SHEFALI CLINICAL HISTORY: right knee pain. TECHNIQUE: 2D digital imaging was performed. COMPARISON: No exams were available for comparison FINDINGS: 3 views No evidence of acute fracture. There appears to be a small amount of increased joint fluid. Minimal degenerative changes. Bone density normal. No osseous lesions. Bone density normal. No osseous lesions. IMPRESSION: No acute osseous findings. However, there is a small joint effusion evident. DATA REPOSITORY: RADIATION DOSE DELIVERED:
[2024-03-07] MEDS: MORPHine IR 15 MG TAB, 4 TABS/BTL PO (18:56)
--- NOTE | 2024-03-07 18:56 | DI.VRAD_ITS ---
PROCEDURE INFORMATION: Exam: XR Right Knee Exam date and time: 03/07/2024 6:15 PM Age: 43 years old Clinical indication: Other: Right knee pain TECHNIQUE: Imaging protocol: Radiologic exam of the right knee. Views: 3 views. COMPARISON: CR XR ANKLE RT COMPLETE 07/25/2022 1:31 PM FINDINGS: Bones/joints: Normal. Soft tissues: Normal. IMPRESSION: Normal right knee. Dictated and Authenticated by: Duarte Sosa MD. Ordering:RADHA Chairez MD
[2024-03-07 19:04] VITALS: BP 125/82; PULSE 89; RESP 18; TEMP 36; O2SAT 97
--- NOTE | 2024-03-07 20:30 | ED.GENADUL_ITS ---
Discharge Plan Disposition Patient Disposition: Home Condition: Stable Discharge Details Clinical Impression: Effusion of knee joint right Primary Care Provider: Leeanne Jaffe ED Provider: Mihaela Hobson Home Meds and New Rx's Prescriptions: Continued fluticasone propion-salmeterol [Advair HFA] 115-21 mcg/actuation HFA aerosol inhaler 2 puff inhalation BID Qty: 12 12RF Patient Comments: not taking Rx Instructions: administer with spacer zolpidem 5 mg tablet 5 mg PO QHS PRN Rx Instructions: may repeat once if no response in 30-60 minutes lorazepam 0.5 mg tablet 0.5 - 1 mg PO DAILY MDD 1mg PRN (Reason: panic attack(s)) Qty: 30 0RF Patient Comments: not taking cetirizine [Zyrtec] 10 MG tablet 10 mg PO daily prn Patient Comments: not taking albuterol sulfate [ProAir HFA] 90 mcg/actuation HFA aerosol inhaler 2 puff Inhalation Q4H PRN (Reason: shortness of breath or wheezing) Qty: 8.5 1RF Patient Comments: not taking rosuvastatin 10 mg tablet 10 mg PO DAILY Qty: 90 3RF Patient Comments: not taking omeprazole 20 mg capsule,delayed release(DR/EC) 20 mg PO DAILY Qty: 90 3RF Patient Comments: not taking phentermine 37.5 mg tablet 37.5 mg PO DAILY topiramate 50 mg tablet 50 mg PO BID modafinil 200 mg tablet 400 mg PO DAILY mupirocin 2 % ointment 1 applic topical TID Qty: 15 0RF Rx Instructions: apply 1/2 to affected area three times daily, cover with sterile dressing Discharge Instructions Instructions: Swollen Joints (DC) Additional Instructions: Keep your knee immobilizer in place and use your crutches with ambulation as needed Follow-up with orthopedics tomorrow Apply Voltaren gel or Motrin gel topically take Tylenol for breakthrough pain, you may take the morphine sparingly at night as needed Please return with redness, fever, or should you have any new or worsening complaints Referrals: Abel Mejia MD [ [facility] STAFF PHYSICIAN] - 2 days HPI General Date/Time Provider Initiated Documentation: 03/07/24 17:59 . HPI Narrative: This 43-year-old female presents with injury to right knee just prior to arrival. She just her knee this morning and states its worsened throughout the day. Worse with flexion improved with extension. States that she planted her knee and twisted and she felt a popping sensation. Denies any chance of or sensation change. Related Data Home Medications ?Medication ?Instructions ?Recorded ?Confirmed cetirizine 10 mg tablet (Zyrtec) 10 mg PO daily prn 10/12/12 03/07/24 albuterol sulfate 90 mcg/actuation 2 puff inhalation Q4H PRN 12/24/21 03/07/24 aerosol inhaler (ProAir HFA) shortness of breath or wheezing #8.5 grams rosuvastatin 10 mg tablet 10 mg PO DAILY #90 tabs 08/07/22 03/07/24 fluticasone propionate 115 2 puff inhalation BID #12 grams 10/18/22 03/07/24 mcg-salmeterol 21 mcg/actuation HFA inhaler (Advair HFA) omeprazole 20 mg capsule,delayed 20 mg PO DAILY #90 caps 11/11/22 03/07/24 release phentermine 37.5 mg tablet 37.5 mg PO DAILY 06/26/23 03/07/24 lorazepam 0.5 mg tablet 0.5 - 1 mg (1 - 2 x 0.5 mg) PO 06/30/23 03/07/24 DAILY PRN panic attack(s) #30 tabs modafinil 200 mg tablet 400 mg PO DAILY 06/30/23 03/07/24 topiramate 50 mg tablet 50 mg PO BID 06/30/23 03/07/24 zolpidem 5 mg tablet 5 mg PO QHS PRN 06/30/23 03/07/24 mupirocin 2 % topical ointment 1 applic topical TID cellulitis 09/18/23 03/07/24 #15 grams Previous Rx's ?Medication ?Instructions ?Recorded albuterol sulfate 90 mcg/actuation 2 puff inhalation Q4H PRN 12/24/21 aerosol inhaler (ProAir HFA) shortness of breath or wheezing #8.5 grams rosuvastatin 10 mg tablet 10 mg PO DAILY #90 tabs 08/07/22 fluticasone propionate 115 2 puff inhalation BID #12 grams 10/18/22 mcg-salmeterol 21 mcg/actuation HFA inhaler (Advair HFA) omeprazole 20 mg capsule,delayed 20 mg PO DAILY #90 caps 11/11/22 release lorazepam 0.5 mg tablet 0.5 - 1 mg (1 - 2 x 0.5 mg) PO 06/30/23 DAILY PRN panic attack(s) #30 tabs mupirocin 2 % topical ointment 1 applic topical TID cellulitis 09/18/23 #15 grams Allergies Allergy/AdvReac Type Severity Reaction Status Date / Time chlorhexidine Allergy Mild Skin Rash Unverified 03/07/24 18:00 metoclopramide HCl (From AdvReac Intermediate CREEPY Unverified 03/07/24 18:00 Reglan) CRAWLY FEELINGS General Stated Complaint: Orthopedic VIOLET: 4 Exam Narrative Exam Narrative: Right knee with tenderness overlying the patella and medial aspect of knee, no joint laxity, no obvious effusion, neurovascularly intact Course Vital Signs Vital signs: Vital Signs Temperature 36.0 C L 03/07/24 17:57 Pulse 89 03/07/24 17:57 Respiratory Rate 18 03/07/24 17:57 Blood Pressure 125/82 03/07/24 17:57 Pulse Oximetry 97 03/07/24 17:57 Temperature 36.0 C L 03/07/24 19:04 Temperature Source Temporal Artery Scan 03/07/24 17:57 Pulse 89 03/07/24 19:04 Respiratory Rate 18 03/07/24 19:04 Respiratory Effort Normal 03/07/24 18:01 Blood Pressure 125/82 03/07/24 19:04 Pulse Oximetry 97 03/07/24 19:04 Medical Decision Making 43-year-old female presenting with right knee injury. No overlying erythema no joint laxity. X-ray was ordered which shows evidence of knee effusion per radiology interpretation my review. Placed in a knee immobilizer and supplied with crutches. 4 tablets of morphine secondary to reported persistent pain despite ibuprofen and Tylenol. Risk of addiction reviewed and patient is aware she may not operate her vehicle while taking this medication. Referral to orthopedics for internal derangement of knee. Return precautions reviewed and patient expressed understanding Quality:SDOH Health Related Social Needs: Health related social needs material hardship(utilitiestevan s)(Z59.87) Health related social needs details ... 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) Major depressive disorder, recurrent (Chronic) Generalized anxiety disorder with panic attacks (Chronic) Hyperlipidemia (Chronic) Chronic fatigue (Chronic) GERD (gastroesophageal reflux disease) (Chronic) Hiatal hernia (Chronic) Migraine (Chronic) Obesity, Class III, BMI 40-49.9 (morbid obesity) (Chronic) Hemorrhoids (Chronic) Chronic diarrhea (Chronic) Right Achilles tendinitis (Chronic) Chronic pain of right elbow (Chronic) Allergic rhinitis (Chronic) Medical History Juvenile rheumatoid arthritis Asthma Surgical History H/O total hysterectomy with bilateral salpingo-oophorectomy (BSO) (09/10/22) with TVT vaginal sling for abnormal uterine bleeding S/P cholecystectomy Status post Luis F fundoplication S/P sinus surgery S/P tonsillectomy Family History Mother Depression Hyperlipidemia Hypertension Father , 62 Diabetes Depression Heart disease Hyperlipidemia Stroke Esophageal cancer Cancer of kidney Sister Stroke Brother Depression Hyperlipidemia Asthma Glaucoma Brother No problems noted. Son Depression Asthma Periodic fever, aphthous stomatitis, pharyngitis, adenitis (PFAPA) syndrome Daughter No problems noted. Daughter No problems noted. Maternal Grandfather No problems noted. Maternal Grandmother Heart disease Paternal Grandfather No problems noted. Paternal Grandmother Diabetes Social History Smoking/Tobacco Use Status: Never Second Hand Exposure: Yes Smoking risk assessment performed?: Yes Alcohol Intake: current Alcohol Intake frequency: a few times a month Alcohol type: hard liquor Drug use: Never Substance use type: does not use Caregiver/Support person: No Household members: children Communication Needs: None current occupation: owns and manages [employer] Pets and animals: Yes Pets and animals: cat(s) and dog(s) Sexually active: Yes Do you think of yourself as: straight/heterosexual Current gender identity: female What is your relationship status?: How often do you talk on the phone with friends or family?: three or more times per week How often do you get together with friends or relatives?: twice per week How often do you attend alevism or samaritan services?: decline to answer Do you belong to any clubs or organized social groups?: no Panel score (0-1 are the most socially isolated patients): 1 What type of physical activity do you participate in: walking Duration: 15-30 minutes/day Frequency: 3-4 times per week Rosa/Denominational: None Special rosa needs: No Seatbelt use: sometimes Drive intox or ride w/intox escort car driver: No Do you feel safe at home: Yes Do you feel safe in your relationship?: Yes PAWSS Have you Been Recently Intoxicated or Drunk Within the Last 30 days?: No Have you Ever Experienced Previous Episodes of Alcohol Withdrawal?: No Have you ever Experienced Withdrawal Seizures?: No Have you ever Experienced Delirium Tremens(DT)s?: No Have you ever undergone Alcohol Rehabilitation Treatment (i.e, inpt ot outpatient treatment programs)?: No Have you ever Experienced Blackouts?: No Have you ever Combined Alcohol with other Downers within the last 90 days?: No Have you ever Combined Alcohol with any other Substance of Abuse during the last 90 days?: No Positive Blood Alcohol level on Presentation? [PCS.BAL]: No Evidence of Increased Autonomic Activity (i.e. HR>120, tremor, sweating, agitation, nausea)?: No Result: 0
== END 2024-03-07 19:04 | disposition home or self-care (01) ==
PROVIDERS: Emergency Provider Physician Assistant; PCP Nurse Practitioner Family
DX: M25.561 Pain in right knee (principal); M25.461 Effusion, right knee
CPT/HCPCS: 73562; 99283

== ENCOUNTER 2024-03-18 01:53 | Outpatient (CLI) | payer MEDICAID, SELFPAY ==
--- NOTE | 2024-03-18 07:45 | DI.MRI_ITS ---
Exam(s) MR LOWER JOINT RT WO EXAM: MR LOWER JOINT RT WO CLINICAL HISTORY: ? MENISCAL TEAR,INTERNAL DERANGEMENT RT KNEE,M23.91,M25.461. TECHNIQUE: Multiplanar multisequence MRI was performed. COMPARISON: CR,XR XR KNEE RT 3V AP,LAT,SHEFALI from 03/07/2024 FINDINGS: BONES: There is no fracture or contusion pattern. JOINTS: There is mild hyperintense signal seen in the articular cartilage overlying the lateral johnson lar facet. The articular cartilage is otherwise unremarkable. No significant joint effusion. TENDONS: Extensor mechanism: Unremarkable. Medial retinaculum: Unremarkable. Lateral retinaculum: Unremarkable. Popliteus: Unremarkable. MUSCLES: Unremarkable. MENISCI: The medial meniscus is unremarkable. The lateral meniscus is unremarkable. SOFT TISSUES: Unremarkable. LIGAMENTS: Anterior Cruciate: Unremarkable. Posterior Cruciate: Unremarkable. Medial Collateral:Unremarkable. Lateral Collateral: Unremarkable. OTHER: IMPRESSION: 1. No evidence of a meniscal or ligament tear. 2. Chondromalacia involving the lateral patella. DATA REPOSITORY:
== END 2024-03-18 02:13 ==
LOC: DI 01:54
PROVIDERS: PCP Nurse Practitioner Family; Visit Provider Student in an Organized Health Care Education/Training Program
DX: M25.461 Effusion, right knee
CPT/HCPCS: 73721

== ENCOUNTER 2024-04-01 09:23 | Day surgery (SDC) | payer MEDICAID, SELFPAY ==
[2024-04-01] VITALS (17 sets, daily range): BP systolic 110–136; BP diastolic 61–93; PULSE 76–113; RESP 10–20; TEMP 36.2–36.6; O2SAT 95–100; BMI 46.0
--- NOTE | 2024-04-01 07:04 | W.PM.DSUDISC ---
Date of service: 04/01/24 Discharge Plan Disposition Patient Disposition: Home Condition: Stable Discharge Details Attending Provider: Abel Mejia Primary Care Provider: Leeanne Jaffe Home Meds and New Rx's Prescriptions: New naproxen 250 mg tablet 250 - 500 mg PO BID PRN (Reason: Moderate pain) Qty: 40 0RF oxycodone 5 mg tablet 5 - 10 mg PO Q4H PRN (Reason: Moderate to severe pain) Qty: 18 0RF aspirin 325 mg capsule 325 mg PO DAILY Qty: 14 0RF Continued fluticasone propion-salmeterol [Advair HFA] 115-21 mcg/actuation HFA aerosol inhaler 2 puff inhalation BID Qty: 12 12RF Patient Comments: not taking Rx Instructions: administer with spacer lorazepam 0.5 mg tablet 0.5 - 1 mg PO DAILY MDD 1mg PRN (Reason: panic attack(s)) Qty: 30 0RF Patient Comments: not taking albuterol sulfate [ProAir HFA] 90 mcg/actuation HFA aerosol inhaler 2 puff Inhalation Q4H PRN (Reason: shortness of breath or wheezing) Qty: 8.5 1RF Patient Comments: not taking modafinil 200 mg tablet 400 mg PO DAILY ibuprofen [Advil] 200 mg tablet 200 mg PO TID-QID PRN Patient Comments: 2-3 tabs mupirocin 2 % ointment 1 applic topical TID Qty: 15 0RF Rx Instructions: apply 1/2 to affected area three times daily, cover with sterile dressing Discharge Instructions Additional Instructions: Surgery: Right knee arthroscopy with patellofemoral chondroplasty and medial & lateral partial meniscectomy; Moderately significant patellofemoral chondromalacia Activity: Weightbearing as tolerated. Advance range of motion as comfort allows. No knee brace or crutches needed as soon as comfortable. Recommend avoiding sports, kneeling, and squatting for 6-8 weeks. A physical therapy prescription will be sent electronically to start about 3 weeks. Prescriptions: Aspirin 325 mg take 1 daily to prevent a blood clot for 14 days Naproxen 250 mg take 1-2 every 12 hours with a meal as needed for moderate pain Oxycodone 5 mg take 1-2 every 4-6 hours as needed for severe pain You may use [id number] Tylenol (acetaminophen) as needed for mild pain. These pain medications may be taken all at once or in different combinations as needed. Also, recommend Colace (docusate) as a stool softener as surgery and pain medicine cause constipation. You may try [id number] diphenhydramine (Benadryl) 25-50 mg nightly as a sleep aid Dressings: Leave dressing in place for 3 days. May then remove and leave open to air or cover incisions with Band-Aids. Leave the sticky Steri-Strips in place until they fall off or remove them after you shower. May shower after 5 days. Follow-up: 10-[address] Mejia You may take off the leg compression stockings this evening at home. You may also leave them on a few days longer if you have a history of leg swelling or edema. Let us know right away if you develop any redness, drainage, fevers, chest pain, or trouble breathing. Do not drink alcohol or drive for at least 24 hours after anesthesia. Please call the office during business hours with any questions or concerns. Discharge Orders Discharge Orders: Discharge Order (Routine); Ordered 04/01/24 Ordered By: Ryan Grace DS: Diagnosis Discharge Diagnosis (1) Tear of cartilage of right knee: Status: Acute
--- NOTE | 2024-04-01 10:03 | ANES.PREOP_ITS ---
General Info Date of Service Date Performed: 04/01/24 Height: 5 ft 4 in Weight: 121.6 kg Body Mass Index (BMI): 46.0 Surgical Procedure: Operation Date: 04/01/24 09:40 Proposed Procedure Side Surgeon p Knee Arthroscopy w/any indicated Chondral surgery Right Abel Mejia MD Meds Allergies and Home Medications Allergies Allergy/AdvReac Type Severity Reaction Status Date / Time chlorhexidine Allergy Mild Skin Rash Verified 04/01/24 09:45 metoclopramide HCl (From AdvReac Intermediate CREEPY Verified 04/01/24 09:45 Reglan) CRAWLY FEELINGS Home Medication ?Medication ?Instructions ?Recorded albuterol sulfate 90 mcg/actuation 2 puff inhalation Q4H PRN 12/24/21 aerosol inhaler (ProAir HFA) shortness of breath or wheezing #8.5 grams fluticasone propionate 115 2 puff inhalation BID #12 grams 10/18/22 mcg-salmeterol 21 mcg/actuation HFA inhaler (Advair HFA) lorazepam 0.5 mg tablet 0.5 - 1 mg (1 - 2 x 0.5 mg) PO 06/30/23 DAILY PRN panic attack(s) #30 tabs modafinil 200 mg tablet 400 mg PO DAILY 06/30/23 mupirocin 2 % topical ointment 1 applic topical TID cellulitis 09/18/23 #15 grams ibuprofen 200 mg tablet (Advil) 200 mg PO TID-QID PRN 04/01/24 Current Visit Medications: Current Medications Generic Name Dose Route Start Last Admin Trade Name Freq PRN Reason Stop Dose Admin Ringer's Solution 1,000 mls @ 30 mls/hr 04/01/24 06:00 IV 04/01/24 23:59 INFUSION RADHA Cefazolin Sodium 3,000 mg/ 100 mls @ 200 mls/hr 04/01/24 06:00 Sodium Chloride IV 04/01/24 23:59 PREOP RADHA Tranexamic Acid/Sodium Chloride 1,000 mg in 100 mls @ 600 mls/hr 04/01/24 06:00 IVPB 04/01/24 23:59 PREOP RADHA IV Miscellaneous Supplies 1 each 04/01/24 06:00 Iv Access IV 04/01/24 23:59 DIRECTED RADHA Oxycodone HCl 0 mg 04/01/24 07:03 Oxycodone 5 Mg Tab PO 05/01/24 07:02 Q3H PRN PRN Pain Sodium Chloride 0 ml 04/01/24 06:00 Normal Saline Flush 10 Ml Syr IV 04/01/24 23:59 PRN PRN Sodium Chloride 0 ml 04/01/24 06:00 Normal Saline 10 Ml Vial IJ 04/01/24 23:59 DIRECTED PRN Sterile Water 0 ml 04/01/24 06:00 Water,Injection,Sterile 10 Ml Vial IJ 04/01/24 23:59 DIRECTED PRN PFSH Active Problems Active Problems: Problem Status Onset Code PND (post-nasal drip) Acute R09.82 Tear of cartilage of right knee Acute S83.206A Effusion of knee joint right Acute M25.461 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 Major depressive disorder, recurrent Chronic F33.9 Generalized anxiety disorder with panic attacks Chronic F41.1, F41.0 Hyperlipidemia Chronic E78.5 Chronic fatigue Chronic R53.82 GERD (gastroesophageal reflux disease) Chronic Hiatal hernia Chronic K44.9 Migraine Chronic G43.909 Obesity, Class III, BMI 40-49.9 (morbid obesity) Chronic E66.01 Hemorrhoids Chronic K64.9 Chronic diarrhea Chronic K52.9 Right Achilles tendinitis Chronic M76.61 Chronic pain of right elbow Chronic M25.521, G89.29 Allergic rhinitis Chronic J30.9 Medical History Medical History (Updated 04/01/24 @ 09:45 by Cesilia Lawrence) PONV (postoperative nausea and vomiting) Juvenile rheumatoid arthritis Asthma Surgical History Surgical History (Updated 04/01/24 @ 09:48 by Cesilia Lawrence) H/O shoulder surgery right RTC H/O total hysterectomy with bilateral salpingo-oophorectomy (BSO) (09/10/22) with TVT vaginal sling for abnormal uterine bleeding S/P cholecystectomy Status post Luis F fundoplication S/P sinus surgery S/P tonsillectomy Tobacco Smoking/Tobacco Use Status: Never Passive smoking exposure: No Second hand exposure: Yes Alcohol Alcohol Intake: current Alcohol intake frequency: a few times a month Alcohol type: hard liquor Substance Use Substance use: Never Substance use type: does not use Vital Signs and Lab Results Vital Signs Most Recent Vital Signs in EMR: Most Recent Vital Signs Temp Pulse Resp BP Pulse Ox 36.3 C L 113 H 20 131/85 96 04/01/24 09:52 04/01/24 09:52 04/01/24 09:52 04/01/24 09:52 04/01/24 09:52 Lab Results Blood Type / Crossmatch: No Data to Display Complete Blood Count: No Data to Display Complete Metabolic Panel: No Data to Display Liver Function Panel: No Data to Display Coagulation Panel: No Data to Display Cardiac Panel: No Data to Display Arterial Blood Gas: No Data to Display Venous Blood Gas: No Data to Display Pancreas Panel: No Data to Display Thyroid Panel: No Data to Display Infectious Disease: No Data to Display Blood Cultures: 2 No Data to Display Toxicology Panel: No Data to Display Panel: No Data to Display Anesthesia Assessment and Plan Anesthesia History Personal History: PONV Family History: No Family History of Anesthesia Complications Exercise Tolerance Exercise Tolerance: Metabolic Equivalents>4 Pertinent Negatives Pertinent Negatives: No Symptoms of GERD (Luis F History) Cardiac & Pulmonary Exam Cardiac Exam: Normal S1/S2 Heart Sounds Pulmonary Exam: Clear Bilateral Breath Sounds Implantable Cardiac Device Does patient have a Pacemaker or an ICD?: No Airway Exam Known Difficult Airway: No Mallampati Class: 2 Mouth Opening: Normal (> 3cm) Thyromental Distance: Greater than 3 cm Neck Range of Motion: Full ROM Neck Circumference: Normal Teeth Condition: Normal Dentition ASA Classification ASA Score: ASA 2 Emergency Case?: No NPO Status NPO Status: NPO Clears >2 hours, Solids >8 hours Status Status: Not Relevant due to Medical History Anesthesia Plan Resuscitation Status: Full Code Anesthesia Technique: General Anesthesia Airway Planned: Endotracheal Tube Monitors Used: Standard Monitors
[2024-04-01] MEDS: Lactated Ringers 1,000 ML 30 ML IV (10:15)
[2024-04-01] MEDS: ceFAZolin 3,000 MG in Normal Saline 100 ML 200 MG IV (10:40)
[2024-04-01] MEDS: TRANEXAMIC ACID/SOD. CHL. 1,000 MG/100 ML BAG 600 MG IVPB (10:55)
[2024-04-01] MEDS: Bupivacaine 0.25% Pres-Free W/EPI 30 ML VIAL ×2 (11:21→11:22)
[2024-04-01] MEDS: EPINEPHrine 10 MG/10 ML ML (11:33)
[2024-04-01] MEDS: MORPHine 4 MG/ML SYR (11:34)
[2024-04-01] MEDS: fentaNYL 100 MCG/2 ML VIAL IVP ×2 (12:00→12:06)
--- NOTE | 2024-04-01 12:10 | ROE_ITS ---
Operative Note Operative Note PRE-OP DIAGNOSIS: Right knee 1. Patellar cartilage tear/chondromalacia POST-OP DIAGNOSIS: same Right knee 1. Patellar cartilage tear/chondromalacia 2. Moderately significant trochlear chondromalacia 3. White zone medial meniscus tear 4. White zone lateral meniscus tear PROCEDURE: Right knee 1. Partial medial & lateral meniscectomy, CPT #36547 2. Chondroplasty, CPT #89642: Patellofemoral compartment involving large broad trochlear lesion and smaller engaging patellar undersurface lesion SURGEON: Abel Mejia SANDING MACHINE OPERATOR OR TENDER: None None ANESTHESIA TYPE: Local By Surgeon and General LMA/ETT Refer to Anesthesia Record ESTIMATED BLOOD LOSS: 5 PATHOLOGY: none sent TOURNIQUET TIME: 0 Patient was transported to: PACU Patient's condition: stable Indications: Please see complete medical record for details. Findings: Exam under anesthesia: Full range of motion, stable, limited by soft tissue e nvelope Arthroscopic findings: Moderate significant patellofemoral narrowing degenerative changes and a broad large area of trochlear cartilage thinning delamination irregularity and unstable edges smaller corresponding undersurface patellar cartilage lesion. Small white zone medial meniscus body tearing, small white zone posterior horn body junction lateral meniscus tearing fraying. Intact medial lateral articular cartilage. Intact ACL. Moderate patellofemoral synovitis. Procedure Description: In the operating room, general anesthesia was induced. The patient was positioned supine on the operating room table. All bony prominences were well- padded. Preoperative antibiotics were administered. The knee was prepped and draped in the usual sterile fashion. The correct patient, procedure, and side of the procedure were all verified prior to incision. Exam under anesthesia was performed. 10 cc of 0.25% bupivacaine containing epinephrine was infiltrated about the planned anteromedial and anterolateral knee arthroscopy portals. The portals were established and a complete diagnostic arthroscopy was performed with relevant findings detailed above. Arthroscopy was more challenging as expected given the soft tissue envelope due to morbid obesity. The patellofemoral area was inspected, debrided of engaging synovitis to expose a rather large broad trochlear cartilage problem. It was clear based on the size and extent of the lesion that the patient's problem was more patellofemoral arthritis than a simple undersurface patellar acute on chronic cartilage tear. Probe was used to confirm margins. As best possible, hand biters and the torpedo shaver were used to trim irregular cartilage smooth margins and remove loose flaps around the periphery, but the broad lesion and extent of the cartilage wear and tear will not have the best prognosis. The undersurface of the patella was lightly smooth as well and some engaging cartilage areas. The torpedo shaver was then used to trim nicely to a vertical stable margin the small white zone tears of both the medial and then the lateral menisci. Under direct arthroscopic visualization an 18-gauge needle was passed into the knee from superolateral into the suprapatellar pouch. The knee was copiously irrigated with arthroscopic fluid until there was a clear effluent before being drained of all fluid. The anteromedial and anterolateral portals were closed in 3-0 Monocryl in a buried interrupted fashion. 20 cc of 0.25% bupivacaine with epinephrine containing 4 mg of morphine was infiltrated into the knee through the previously placed needle. Mastisol, Steri-Strips, and 4 x 4 gauze were applied over the incisions. The knee was then wrapped gently with an SABINO comr essive bandage. The patient awoke from anesthesia without complication and was transferred to the recovery room in a stable condition. The extent of the trochlear cartilage lesion makes persistent symptoms likely with essentially diagnosis of patellofemoral arthritis, which may be challenging to treat given morbid obesity and relatively young age high activity level. Consider patellofemoral re placement given intact medial and lateral compartments. Date of Procedure: 04/01/24
--- NOTE | 2024-04-01 12:17 | W.ANESPOSTOP ---
Postoperative Evaluation Date, Time and Location Date Performed: 04/01/24 Time Performed: 12:17 Patient Location: PACU Vital Signs Most Recent Imported Vital Signs: Most Recent Vital Signs Temp Pulse Resp BP Pulse Ox 36.2 C L 113 H 20 131/85 96 04/01/24 12:05 04/01/24 09:52 04/01/24 09:52 04/01/24 09:52 04/01/24 09:52 Pain Score Most Recent Pain Score: Most Recent Pain Score Pain Level 8 04/01/24 12:00 Assessment Mental Status: Awake (Alert & Oriented to Patient Baseline) Airway and Respiratory Function: Patent airway with normal (patient baseline) respiratory exam Cardiovascular Function: Hemodynamically Stable Hydration Status: Adequately Hydrated Nausea & Vomiting: No Nausea or Vomiting Pain: Pain is tolerable per patient Peripheral Nerve Block: Patient did not receive a nerve block
[2024-04-01] MEDS: HYDROmorphone 1 MG/ML SYR IVP (12:26)
== END 2024-04-01 14:05 | disposition home or self-care (01) ==
LOC: SUR 09:24
PROVIDERS: PCP Nurse Practitioner Family; Visit Provider Student in an Organized Health Care Education/Training Program
PROC: (CPT 29870; principal; 2024-04-01 09:30)
DX: S83.241A Other tear of medial meniscus, current injury, right knee, initial encounter (principal); X58.XXXA Exposure to other specified factors, initial encounter; S83.281A Other tear of lateral meniscus, current injury, right knee, initial encounter; S83.31XA Tear of articular cartilage of right knee, current, initial encounter; M22.41 Chondromalacia patellae, right knee; M22.2X1 Patellofemoral disorders, right knee
CPT/HCPCS: 29880; J0131; J0690; J1100; J1171; J1885; J2003; J2250; J2270; J2405; J2704; J3010

== ENCOUNTER 2024-08-23 02:21 | Outpatient (CLI) | payer MEDICAID, SELFPAY ==
--- NOTE | 2024-08-23 | DI.CT_ITS ---
Exam(s) CT CHEST WO EXAM: CT CHEST WO CLINICAL HISTORY: Dyspnea; h/o sarcoidosis, D86.9, ? recurrence. TECHNIQUE: Multi planar reconstructions were performed. CONTRAST MATERIAL: None COMPARISON: CT CT CHEST PE CTA from 11/14/2022 FINDINGS: CHEST: LUNGS: There is a single tiny calcified granuloma in each lung; in the lingular segment of the left l smita and in the lateral segment of the right middle lobe. There is no obvious abnormal interstitial d isease in either lung field. No infiltrates in the right lung. Small area of infiltrate in the ling ular segment of the left lung is noted, more so than previous. No findings in the lower lobes. No f indings in the trachea and mainstem bronchi and there is no bronchiectasis. MEDIASTINUM: There is no obvious hilar nor mediastinal adenopathy. No subcarinal adenopathy. No supr aclavicular adenopathy. No axillary adenopathy.Partially visualized thyroid unremarkable. CARDIAC: Heart size is normal. There is no pericardial effusion.Caliber of the thoracic aorta is wit hin normal limits. VISUALIZED UPPER ABDOMEN:No adrenal masses. Gallbladder surgically absent. No ascites evident. OSSEOUS: No significant osseous lesions.No fractures.. IMPRESSION: 1. No evidence of interstitial lung disease nor intrathoracic adenopathy, given the apparent past his tory of sarcoidosis here. 2. There is a mild area of infiltrate in the lingular are segment of the left lung. There are no ple ural effusions. RADIATION DOSE DELIVERED: 305.21mGy.cm Total DLP DATA REPOSITORY: All CT scans at this facility are submitted to the National Radiology Data Registry (NRDR) Dose Index Registry (DIR) with the [employer] (ACR). RADIATION OPTIMIZATION: All CT scans at this facility use at least one of these dose optimization te chniques: automated exposure control; mA and/or kV adjustment per patient size (includes targeted exa ms where dose is matched to clinical indication); or iterative reconstruction.
== END 2024-08-23 02:41 ==
PROVIDERS: PCP Nurse Practitioner Family; Visit Provider Nurse Practitioner Family
DX: D86.0 Sarcoidosis of lung (principal)
CPT/HCPCS: 71250

== ENCOUNTER 2024-09-08 08:44 | Outpatient (CLI) | payer MEDICAID, SELFPAY ==
--- NOTE | 2024-09-08 08:15 | DI.MRI_ITS ---
Exam(s) MR LOWER JOINT RT WO EXAM: MR LOWER JOINT RT WO CLINICAL HISTORY: R KNEE PAIN, chondromalacia patellae, rt knee, M22.41. TECHNIQUE: Multiplanar multisequence MRI was performed. COMPARISON: CR,XR XR KNEE RT 3V AP,LAT,SHEFALI from 03/07/2024 MR MR LOWER JOINT RT WO from 03/18/2024 FINDINGS: BONES: There is no fracture or contusion pattern. JOINTS: There is a moderate-sized joint effusion is present, increasing from prior. Articular cartilage: There is a small focal defect just lateral to the patellar apex and some adjacen t high signal which is less visible than on the prior exam. This may be part due to slight motion.. N o cartilage thinning. Medial femoral tibial joint: There is now mild cartilage thinning and irregularity overlying the med ial femoral condyle. Lateral femoral tibial joint: Articular cartilage is unremarkable. LIGAMENTS/TENDONS: Anterior Cruciate: Unremarkable. Posterior Cruciate: Unremarkable. Medial Collateral:Mild edema around the medial collateral ligament without visible tear. Lateral Collateral ligament complex: Unremarkable. Extensor mechanism: Unremarkable. Medial retinaculum: Unremarkable. Lateral retinaculum: Unremarkable. Popliteus: Unremarkable. MENISCI: The medial meniscus there is blunting of the apex of the posterior horn and body within area of linea r high signal is seen extending through the body. The lateral meniscus is unremarkable. MUSCLES: Unremarkable. SOFT TISSUES: Unremarkable. IMPRESSION: Blunting of the apex of the posterior horn and body of the medial meniscus with inferior surfacing te ar through the body. This is new since the prior exam. There is cartilage thinning over the medial femoral condyle which also appears new. Mild defect in the lateral patellar facet cartilage appears unchanged or improved. DATA REPOSITORY:
== END 2024-09-08 09:04 ==
LOC: DI 08:45
PROVIDERS: PCP Nurse Practitioner Family; Visit Provider Student in an Organized Health Care Education/Training Program
DX: M22.41 Chondromalacia patellae, right knee (principal)
CPT/HCPCS: 73721

== ENCOUNTER 2024-11-30 02:07 | Outpatient (CLI) | payer MEDICAID, SELFPAY ==
[2024-11-30 08:00] LABS: Glucose Negative (Negative)
[2024-11-30 08:09] LABS: Hemoglobin A1C 5.2 % (<5.7)
[2024-11-30 08:46] LABS: ALT 43 U/L (14-59); AST 20 U/L (15-37); Albumin 3.9 g/dL (3.4-5.0); Alkaline Phosphatase 108 U/L (46-116); Anion Gap 12.4 mmol/L (3-11); BUN 17 mg/dL (7-18); Bilirubin, Total 0.6 mg/dL (0.2-1.0); CO2 25.6 mmol/L (21.0-32.0); Calcium 9.1 mg/dL (8.5-10.1); Calculated LDL 123 mg/dL (<100); Chloride 105 mmol/L (98-107); Cholesterol 198 mg/dL (<200); Estimated GFR 93.70 (mL/min/1.73m2); Glucose 103 mg/dL (74-106); HDL Cholesterol 43 mg/dL (>or=50); Potassium 3.9 mmol/L (3.5-5.1); Sodium 143 mmol/L (136-145); Total Protein 7.6 g/dL (6.4-8.2); Triglyceride 162 mg/dL (<150)
[2024-11-30 09:26] LABS: Uric Acid 5.2 mg/dL (2.6-6.0)
[2024-11-30 09:29] LABS: C-Reactive Protein < 0.50 mg/dL (<or=0.5)
[2024-11-30 19:11] LABS: HBs Antibody, Quant <3.1 mIU/mL (See Note); Hepatitis B Surface Ab Negative (See Note)
[2024-11-30 19:56] LABS: Hep B Core Antibody Negative (Negative)
== END 2024-11-30 02:08 | disposition home or self-care (01) ==
LOC: LBO 02:07
PROVIDERS: PCP Nurse Practitioner Family; Visit Provider Nurse Practitioner Family
DX: E78.5 Hyperlipidemia, unspecified (principal); Z11.59 Encounter for screening for other viral diseases
CPT/HCPCS: 36415; 80053; 80061; 86704; 86706; 81003; 83036; 84550; 86140

== ENCOUNTER 2024-12-03 18:19 | Outpatient (REF) | payer MEDICAID, SELFPAY | END 2024-12-03 18:20 | disposition home or self-care (01) | LOC: LBN 18:19 | PROVIDERS: PCP Nurse Practitioner Family; Visit Provider Nurse Practitioner Family | DX: E66.01 Morbid (severe) obesity due to excess calories (principal) | CPT/HCPCS: 82530 ==

== ENCOUNTER 2024-12-05 21:39 | Outpatient (REF) | payer MEDICAID, SELFPAY | END 2024-12-05 21:40 | disposition home or self-care (01) | LOC: LBN 21:39 | PROVIDERS: PCP Nurse Practitioner Family; Visit Provider Nurse Practitioner Family | DX: E66.01 Morbid (severe) obesity due to excess calories (principal) | CPT/HCPCS: 82530 ==

== ENCOUNTER 2025-02-14 18:41 | Emergency (ER) | payer MEDICAID, SELFPAY ==
[2025-02-14 18:59] VITALS: BP 147/71; PULSE 68; RESP 16; TEMP 36.9; O2SAT 96
--- NOTE | 2025-02-14 19:22 | ED.GENADUL_ITS ---
Discharge Plan Disposition Patient Disposition: Home Condition: Stable Discharge Details Clinical Impression: Cervical radiculopathy Primary Care Provider: Leeanne Jaffe ED Provider: Subhash Ibarra Home Meds and New Rx's Prescriptions: New ketorolac 10 mg tablet 10 mg PO QID 5 Days Qty: 20 0RF Rx Instructions: maximum total duration of 5 days from all oral, intranasal, or parenteral formulations cyclobenzaprine 10 mg tablet 10 mg PO TID PRNQty: 30 0RF Continued fluticasone propion-salmeterol [Advair HFA] 115-21 mcg/actuation HFA aerosol inhaler 2 puff inhalation BID Qty: 12 12RF Patient Comments: not taking Rx Instructions: administer with spacer lorazepam 0.5 mg tablet 0.5 - 1 mg PO DAILY MDD 1mg PRN (Reason: panic attack(s)) Qty: 30 0RF Patient Comments: not taking rosuvastatin 10 mg tablet 10 mg PO DAILY Qty: 90 3RF Patient Comments: not taking albuterol sulfate [ProAir HFA] 90 mcg/actuation HFA aerosol inhaler 2 puff Inhalation Q4H PRN (Reason: shortness of breath or wheezing) Qty: 8.5 1RF Patient Comments: not taking dextroamphetamine-amphetamine [Adderall XR] 20 mg capsule,extended release 24hr 20 mg PO DAILY MDD 50mg Qty: 28 0RF Rx Instructions: Take 1 pill daily in addition to the 30mg pill dextroamphetamine-amphetamine 30 mg capsule,extended release 24hr 30 mg PO DAILY MDD 30mg Qty: 28 0RF Rx Instructions: Take 1 pill daily in addition to the 20mg pill Held celecoxib 200 mg capsule 200 mg PO DAILY PRN (Reason: pain) Qty: 90 1RF Hold Instructions: Resume on 02/19/25. HOLD while on ketorolac Discharge Instructions Instructions: Ketorolac (Systemic), Cyclobenzaprine, Radiculopathy of the neck and back (including sciatica) Additional Instructions: You were seen in the emergency department for your cervical muscle spasm and radiculopathy. You need to be taking consistent dosing at consistent intervals of multiple medications for 5 to 7 days as follows. Take 1000 mg of Tylenol every 6 hours like clockwork, skilled nursing in between Tylenol doses take the 10 mg tablets of ketorolac for 5 days then substitute this with 400 mg of ibuprofen on the same schedule, apply an [id number] Lidoderm patch to the area of pain each night for 12 hours, during the day apply Voltaren gel to area of pain for 2-3 times, take consistent dosing of the skeletal muscle relaxers and alternate heat and ice to the area and use a neck support like an airplane neck pillow consistently, follow-up with your massage therapy visit tomorrow and have them perform gentle massage to the area, follow-up with physical therapy visits for any other manual work. Seek outpatient imaging for any failure to improve in 5 to 7 days from your primary care provider, return for any complete weakness of the left arm or any worsening despite treatment. Stand Alone Forms: Physical Therapy Referral, Portal Information Referrals: Leeanne Jaffe NP [Primary Care Provider, Medicine] Discharge Data Discharge Date/Time-TO BE ENTERED AT DEPARTURE: 02/14/25 20:17 HPI General Date/Time Provider Initiated Documentation: 02/14/25 19:22 . HPI Narrative: 44 year-old female presents to ED today by POV/ambulating with a chief complaint of L lateral neck pain over days, worsened last night with onset about a month ago from sleeping on it wrong. Quality described as straining type tension focal to L scalenes, no radiation to arm weakness, numbness, fever, cough, shortness of breath, chest pain, headache, visual changes, tinnitus. Severity is described as moderate to severe. Palliating factors include tried ibuprofen and Tylenol x1 today, as wel as 1 Flexeril without relief. Provoking factors include certain movements. Patient not anticoagulated. Related Data Home Medications Medication Instructions Recorded Confirmed albuterol sulfate 90 mcg/actuation 2 puff inhalation Q 4H PRN 12/24/21 02/14/25 aerosol inhaler (ProAir HFA) shortness of breath or wh eezing #8.5 grams fluticasone propionate 115 2 puff inhalation BID #12 g irasema 10/18/22 02/14/25 mcg-salmeterol 21 mcg/actuation HFA inhaler (Advair HFA) lorazepam 0.5 mg tablet 0.5 - 1 mg (1 - 2 x 0.5 mg) PO 06/30/23 02/14/25 DAILY PRN panic attack(s) #30 tabs rosuvastatin 10 mg tablet 10 mg PO DAILY #90 tabs 06/1302/14/25 dextroamphetamine-amphetamine ER 20 mg PO DAILY #28 ca ps 01/20/25 02/14/25 20 mg 24hr capsule,extend release (Adderall XR) dextroamphetamine-amphetamine ER 30 mg PO DAILY #28 ca ps 01/20/25 02/14/25 30 mg 24hr capsule,extend release celecoxib 200 mg capsule 200 mg PO DAILY PRN pain #90 caps 02/07/25 02/14/25 Held on 02/14/25. Instructions: Resume on 02/19/25. HOLD while on ketorolac cyclobenzaprine 10 mg tablet 10 mg PO TID PRN #30 tabs 02/14/25 ketorolac 10 mg tablet 10 mg PO QID 5 days #20 tabs 02/14/25 Previous Rx's Medication Instructions Recorded albuterol sulfate 90 mcg/actuation 2 puff inhalation Q 4H PRN 12/24/21 aerosol inhaler (ProAir HFA) shortness of breath or wh eezing #8.5 grams fluticasone propionate 115 2 puff inhalation BID #12 g irasema 10/18/22 mcg-salmeterol 21 mcg/actuation HFA inhaler (Advair HFA) lorazepam 0.5 mg tablet 0.5 - 1 mg (1 - 2 x 0.5 mg) PO 06/30/23 DAILY PRN panic attack(s) #30 tabs rosuvastatin 10 mg tablet 10 mg PO DAILY #90 tabs 06/13 dextroamphetamine-amphetamine ER 20 mg PO DAILY #28 ca ps 01/20/25 20 mg 24hr capsule,extend release (Adderall XR) dextroamphetamine-amphetamine ER 30 mg PO DAILY #28 ca ps 01/20/25 30 mg 24hr capsule,extend release celecoxib 200 mg capsule 200 mg PO DAILY PRN pain #90 caps 02/07/25 Held on 02/14/25. Instructions: Resume on 02/19/25. HOLD while on ketorolac cyclobenzaprine 10 mg tablet 10 mg PO TID PRN #30 tabs 02/14/25 ketorolac 10 mg tablet 10 mg PO QID 5 days #20 tabs 02/14/25 Allergies Allergy/AdvReac Type Severity Reaction Status Date / Time chlorhexidine Allergy Mild Skin Rash Verified 02/14/25 19:04 metoclopramide HCl (From AdvReac Intermediate CREEPY Verified 02/14/25 19:04 Reglan) CRAWLY FEELINGS General Stated Complaint: Nk/Back Pain VIOLET: 4 Review of Systems All systems reviewed & are unremarkable except as noted in HPI and below Exam Narrative Exam Narrative: GENERAL APPEARANCE: Well-nourished, non-toxic, awake and alert, atraumatic, mild acute distress. SKIN: Warm, pink, dry, intact, without rashes/lesions/ulcerations. HEAD: Normocephalic, atraumatic, normal hair distribution for gender/age. EYES: Normal conjunctiva, no exudates on lids/lashes. ENT: Nares patent, no circumoral cyanosis, no facial swelling NECK: Supple, trachea midline, painless cervical ROM, L lateral scalenes palpable tension and tenderness, no midline crepitus/stepoffs. LUNGS/CHEST: Non-labored respirations, normal A/P diameter, symmetrical expansion, no chest wall deformity HEART (CV/PV): No peripheral edema, no JVD. ABDOMEN: Soft, non-distended, no guarding. MSK: Normal ROM, no swelling/deformity to bilateral UEs or LEs, moving all extremities without weakness, no cyanosis, spine midline without tenderness, normal curvature. NEURO: Mental Status AAOx4 - alert to person, place, time, events No facial droop, no forehead involvement. Motor: No focal weakness - strength 5/5 in bilateral UEs and LEs, proximal and distal, symmetric. Sensory: sensation intact to light touch globally. Gait normal: patient ambulated without ataxia into ED room. PSYCH: euthymic, cooperative, pleasant, appropriate speech Course Vital Signs Vital signs: Vital Signs Temperature 36.9 C 02/14/25 18:59 Pulse 68 02/14/25 18:59 Respiratory Rate 16 02/14/25 18:59 Blood Pressure 147/71 H 02/14/25 18:59 Pulse Oximetry 96 02/14/25 18:59 Temperature 36.9 C 02/14/25 18:59 Temperature Source Oral 02/14/25 18:59 Pulse 68 02/14/25 18:59 Respiratory Rate 16 02/14/25 18:59 Blood Pressure 147/71 H 02/14/25 18:59 Blood Pressure Position Sitting 02/14/25 18:59 Pulse Oximetry 96 02/14/25 18:59 Oxygen Delivery Method Room Air 02/14/25 18:59 Oxygen Flow Rate 0 02/14/25 18:59 Pain Level 7 02/14/25 18:59 Medical Decision Making This dictation utilizes [id number] dictation software and may contain unedited grammatical errors. 44 year-old female presents to ED today by POV/ambulating with a chief complaint of L lateral neck pain over days, worsened last night with onset about a month ago from sleeping on it wrong. Quality described as straining type tension focal to L scalenes, no radiation to arm weakness, numbness, fever, cough, shortness of breath, chest pain, headache, visual changes, tinnitus. Severity is described as moderate to severe. Palliating factors include tried ibuprofen and Tylenol x1 today, as wel as 1 Flexeril without relief. Provoking factors include certain movements. Patients' medical history: JRA, asthma, chronic pain of right elbow, chronic fatigue, migraine syndrome. Family and social history: Noncontributory. Pertinent exam findings / vital signs include Neurovascularly intact in bilateral upper extremities with focal lateral muscle tension in the left scalenes area, normal cervical ROM, neuro intact. Differential / pathologies of concern include cervical radiculopathy, muscle strain, muscle spasm, no trauma. Diagnostic studies of: - None, discussed trial of relief with aggressive pharmaceutical management prior to imaging by outpatient study. Interventions of: - 1 g p.o. Tylenol, 30 mg IM Toradol, 1 mg p.o. lorazepam, Lidoderm topical. ED Course/Assessment/Plan: 44-year-old female presents with left lateral neck pain, slept on it wrong 1 month ago without any trauma, having straining tight muscles in the scalene, has been using subtherapeutic dosing regimen of Tylenol and ibuprofen and isolated Flexeril use with expectation that it would improve. I counseled on the need for management over multiple days and provide physical therapy referral, strict return criteria for any signs of neurovascular compromise or weakness to the upper extremities. Findings not consistent with trauma, vertebral fracture, neurovascular compromise of upper extremities. Disposition of Cervical Radiculopathy. Patient verbalized understanding of the plan and return to ED criteria and engaged in shared decision making. Medical Records Medical records reviewed: Yes I reviewed the patient's medical records. Quality:SDOH Health Related Social Needs: Health related social needs details ... 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) Major depressive disorder, recurrent (Chronic) Generalized anxiety disorder with panic attacks (Chronic) ADHD (Chronic) Hyperlipidemia (Chronic) Chondromalacia patellae, right knee (Chronic) PES INJECTION 02/07/25 Chronic fatigue (Chronic) GERD (gastroesophageal reflux disease) (Chronic) Hiatal hernia (Chronic) Migraine (Chronic) Obesity, Class III, BMI 40-49.9 (morbid obesity) (Chronic) Hemorrhoids (Chronic) Chronic diarrhea (Chronic) Right Achilles tendinitis (Chronic) Chronic pain of right elbow (Chronic) Allergic rhinitis (Chronic) Medical History Juvenile rheumatoid arthritis Asthma Surgical History S/P arthroscopic partial medial meniscectomy of right knee (04/01/24) patellofemoral chondroplasty and medial & lateral partial meniscectomy S/P right rotator cuff repair H/O total hysterectomy with bilateral salpingo-oophorectomy (BSO) (09/10/22) with TVT vaginal sling for abnormal uterine bleeding S/P cholecystectomy Status post Luis F fundoplication S/P sinus surgery S/P tonsillectomy Family History Mother Depression Hyperlipidemia Hypertension Macular degeneration Father , 62 Diabetes Depression Heart disease Hyperlipidemia Stroke Esophageal cancer Cancer of kidney Sister Stroke Brother Depression Hyperlipidemia Asthma Glaucoma Brother No problems noted. Son Depression Asthma Periodic fever, aphthous stomatitis, pharyngitis, adenitis (PFAPA) syndrome Daughter No problems noted. Daughter No problems noted. Maternal Grandfather No problems noted. Maternal Grandmother Heart disease Paternal Grandfather No problems noted. Paternal Grandmother Diabetes Daughter ADHD Social History (Updated 07/01/24 @ 12:56 by Nicol Stillson) Smoking/Tobacco Use Status: Never Second Hand Exposure: Yes Smoking risk assessment performed?: Yes Alcohol Intake: current Alcohol Intake frequency: holidays/special occasions only Alcohol type: hard liquor Drug use: Never Substance use type: does not use Counseling given: No Caregiver/Support person: No Household members: children Housing: house Communication Needs: None current occupation: owns and manages [employer] Pets and animals: Yes Pets and animals: cat(s) and dog(s) Sexually active: Yes Do you think of yourself as: straight/heterosexual Current gender identity: female What is your relationship status?: How often do you talk on the phone with friends or family?: three or more times per week How often do you get together with friends or relatives?: three or more times per week How often do you attend nondenominational or roman catholic services?: decline to answer Do you belong to any clubs or organized social groups?: no Panel score (0-1 are the most socially isolated patients): 1 What type of physical activity do you participate in: walking Duration: 15-30 minutes/day Frequency: 3-4 times per week Rosa/Uatsdin: Non baptism Special rosa needs: No Seatbelt use: sometimes Drive intox or ride w/intox local city driver: No Additional Social history: [employer]
[2025-02-14 20:03] VITALS: BP 140/72; PULSE 66; RESP 16; O2SAT 96
[2025-02-14] MEDS: Lidocaine 5% Patch 1 PATCH TP (20:10)
[2025-02-14] MEDS: LORazepam 1 MG TAB PO (20:10)
[2025-02-14] MEDS: Acetaminophen 500 MG TAB 1000 MG PO (20:11)
[2025-02-14] MEDS: Ketorolac 30 MG/ML VIAL IM (20:11)
== END 2025-02-14 20:17 | disposition home or self-care (01) ==
PROVIDERS: Emergency Provider Physician Assistant; PCP Nurse Practitioner Family
DX: M54.12 Radiculopathy, cervical region (principal)
CPT/HCPCS: 99283; 99284; 96372; J1885